=== PATIENT | male | born 1940 | race Caucasian/White ===

== ENCOUNTER 2025-02-18 09:23 | Inpatient (IN) | payer MEDICARE, OTHER ==
[~2025-02-18] VITALS: Ht 175.3 cm; Wt 84.0 kg
[2025-02-18] VITALS (11 sets, daily range): BP systolic 114–162; BP diastolic 75–100; PULSE 47–98; RESP 10–20; TEMP 97.2–99.4; O2SAT 91–100
[~2025-02-18 09:23] MED LIST: ASPI1TAB20 OR; ATEN50TA OR; CLOP75TA28 OR; NORTRIPTYLINE PO; SIMV20TA20 OR
--- NOTE | 2025-02-18 09:40 | ED.PDOC ---
HPI Comments 84 y.o male with PMHX of HTN and PAD, presents to the ED via EMS for a chief complaint of substernal chest pain that started around midnight. Patient was seen at [facility] where his pain was treated however transported to [facility] due to elevated troponin. Patient reports prior to arriving to [place], pain had improved and after receiving medication, now is pain free at bedside at this time. Patient initially described pain as a pressure sensation that was non radiating. He denies any worsening SOB (Chronic d/t COPD) ,nausea, vomiting, fever, chills, or leg swelling. He denies any substance, alcohol or tobacco use. Chief Complaint: Chest Pain Time Seen by MD: 09:24 Reviewed Notes: Nurses Notes, Landfill Grader Notes, Medications, Allergies Allergies: Coded Allergies: NO KNOWN ALLERGIES (Unverified , 01/23/12) Home Meds Reported Medications Aspirin (Aspir-81) 81 Mg Tab, 81 MG OR DAILY 01/23/12 [Nortriptoline] No Conflict Check, 25 MG PO BID 01/23/12 Clopidogrel Bisulfate (Plavix) 75 Mg Tab, 75 MG OR DAILY 01/23/12 Simvastatin (Simvastatin) 20 Mg Tab, 20 MG OR DAILY 01/23/12 Atenolol (Atenolol) 50 Mg Tab, 50 MG OR DAILY 01/23/12 Information Source: Patient Severity: Moderate Timing: Hours Duration: Since onset Location: Substernal Radiation: No Radiation Quality: Sharp Onset: At Rest Cardiac Risk Factors: HTN PE Risk Factors: None History of: None Modifying Factors: Nothing Associated Signs and Symptoms: None Past Medical History PAST MEDICAL HISTORY: COPD, HTN Past Medical History (Other): PAD Surgical History (Other): PAD Family History Family History: Reviewed,noncontributory to illness Social History Smoker: Non-Smoker Alcohol: Occasionally Drugs: Denies Drug Use Lives In: Home Constitutional: denies: chills, diaphoresis, fatigue, fever, malaise, sweats, weakness, others EENTM: denies: blurred vision, double vision, ear bleeding, ear discharge, ear drainage, ear pain, ear ringing, eye pain, eye redness, hearing loss, mouth pain, mouth swelling, nasal discharge, nose bleeding, nose congestion, nose pain, photophobia, tearing, throat pain, throat swelling, voice changes, others Respiratory: denies: cough, hemoptysis, orthopnea, SOB at rest, shortness of breath, SOB with excertion, stridor, wheezing, others Cardiovascular: reports: chest pain; denies: dizzy spells, diaphoresis, Dyspnea on exertion, edema, irregular heart beat, left arm pain, lightheadedness, palpitations, PND, syncope, others Gastrointestinal: denies: abdomen distended, abdominal pain, blood streaked bowels, constipated, diarrhea, dysphagia, difficulty swallowing, hematemesis, melena, nausea, poor appetite, poor fluid intake, rectal bleeding, rectal pain, vomiting, others Genitourinary: denies: burning, dysuria, flank pain, frequency, hematuria, incontinence, penile discharge, penile sore, pain, testicle pain, testicle s welling, urgency, others Neurological: denies: dizziness, fainting, headache, left sided numbness, left sided weakness, numbness, paresthesia, pre-existing deficit, right sided numbness, right sided weakness, seizure, speech problems, tingling, tremors, weakness, others Musculoskeletal: denies: back pain, gout, joint pain, joint swelling, muscle pain, muscle stiffness, neck pain, others Integumetry: denies: bruises, change in color, change in hair/nails, dryness, laceration, lesions, lumps, rash, wounds, others Allergic/Immunocompromised: denies: Difficulty Healing, Frequent Infections, Hives, Itching, others Hematologic/Lymphatic: denies: anemia, blood clots, easy bleeding, easy bruising, swollen glands, others Endocrine: denies: excessive hunger, excessive sweating, excessive thirst, excessive urination, flushing, intolerance to cold, intolerance to heat, unexplained weight gain, unexplained weight loss, others All Other Systems: Reviewed and Negative Physical Exam General Appearance: Mild Distress, Normal HEENT: Normal ENT Inspection, Pharynx Normal, TMs Normal Neck: Full Range of Motion, Non-Tender, Normal, Normal Inspection Respiratory: Chest Non-Tender, Lungs Clear, No Accessory Muscle Use, No Respiratory Distress, Normal Breath Sounds Cardiovascular: No Edema, No JVD, No Murmur, No Gallop, Normal Peripheral Pulses, Regular Rate/Rhythm Breast Exam: Deferred Gastrointestinal: No Organomegaly, Non Tender, No Pulsatile Mass, Normal Bowel Sounds, Soft, Other (Multiple well healing scar from previous surgeries I) Genitalia: Deferred Pelvic: Deferred Rectal: Deferred Extremities: No calf tenderness, Normal capillary refill, Normal inspection, Normal range of motion, Non-tender, No pedal edema, Other (Multiple well-healing scars from previous surgery sites) Musculoskeletal : Apperance: Normal Neurologic: Alert, dye maker II-XII nml as Tested, No Motor Deficits, Normal Affect, Normal Mood, No Sensory Deficits Cerebellar Function: Normal Reflexes: Normal Skin: Dry, Normal Color, Warm Lymphatic: No Adenopathy EKG EKG #1: Comments Rate of [address] depressions in lead two three V5 V6 EKG #2: Comments EKG 2. At 10:36 a.m., rate of [address] changes Was a procedure done? Was a procedure done?: No CP Differential Dx Differential Diagnosis: AV Block 1st Degree, AV Block 2nd Degree, AV Block 3rd Degree, NM Differential Diagnosis: Angina, Chest Wall Pain, Cholelithiasis, Gastritis, Myocardial Infarction, Pericarditis X-Ray, Labs, Meds, VS Vital Signs Date Time Temp Pulse Resp B/P (MAP) Pulse Ox O2 Delivery O2 Flow Rate FiO2 02/18/25 10:00 86 10 100 Room Air* 0 21 02/18/25 09:26 90 Lab Test 02/18/25 09:47 02/18/25 09:42 Range/Units Sodium Level 144 136-145 mmol/L Potassium Level 4.1 3.5-5.1 mmol/L Chloride Level 106 98-107 mmol/L Carbon Dioxide Level 25 20-31 mmol/L Anion Gap 13 5-15 Blood Urea Nitrogen 22 9-23 mg/dL Creatinine 1.01 0.700-1.30 mg/dL Glomerular Filtration Rate Calc 73 >90 mL/min BUN/Creatinine Ratio 21.8 H 10.0-20.0 Serum Glucose 97 74-106 mg/dL Calcium Level 9.6 8.7-10.4 mg/dL White Blood Count 7.2 4.4-10.8 10^3/uL Red Blood Count 5.37 4.5-5.90 10^6/uL Hemoglobin 14.7 13.5-17.5 g/dL Hematocrit 44.8 41.0-53.0 % Mean Corpuscular Volume 83.5 80.0-100.0 fL Mean Corpuscular Hemoglobin 27.5 L 28.0-32.0 pg Mean Corpuscular Hemoglobin Concent 32.9 32.0-36.0 g/dL Red Cell Distribution Width 17.8 H 11.8-14.3 % Platelet Count 193 140-450 10^3/uL Mean Platelet Volume 8.7 6.9-10.8 fL Neutrophils (%) (Auto) 79.2 37.0-80.0 % Lymphocytes (%) (Auto) 12.1 10.0-50.0 % Monocytes (%) (Auto) 8.5 0.0-12.0 % Eosinophils (%) (Auto) 0.0 0.0-7.0 % Basophils (%) (Auto) 0.2 0.0-2.0 % Neutrophils # (Auto) 5.7 1.6-8.6 10 ^3/uL Lymphocytes # (Auto) 0.9 0.4-5.4 10 ^3/uL Monocytes # (Auto) 0.6 0-1.3 10 ^3/uL Eosinophils # (Auto) 0 0-0.8 10 ^3/uL Basophils # (Auto) 0 0-0.2 10 ^3/uL Nucleated Red Blood Cells 0.0 % Prothrombin Time 11.8 9.3-11.8 sec Prothrombin Time INR 1.13 0.9-1.15 Activated Partial Thromboplast Time 33.1 24.5-34.5 SEC Magnesium Level 1.9 1.6-2.6 mg/dL Total Bilirubin 0.9 0.2-1.0 mg/dL Direct Bilirubin 0.3 <0.3 mg/dL Aspartate Amino Transferase (AST) 41 H 13-40 U/L Alanine Aminotransferase (ALT) 30 7-40 U/L Alkaline Phosphatase 165 H 46-116 U/L Troponin I High Sensitivity 2542 *H </=54 ng/L Total Protein 7.4 5.7-8.2 g/dL Albumin 4.3 3.2-4.8 g/dL Thyroid Stimulating Hormone (TSH) 1.09 0.55-4.78 uIU/mL 84-year-old male for [facility]. I received a phone call from the doctor [facility] the patient is here with chest discomfort and slightly trending reports troponin. The consult with the manager administration who recommended transfer to us as cardiac catheterization as possible if troponins continued to of rise. He is comfortable on my examination, he states the medications have helped. At this time initial troponin was 08/02/2041 here, 2nd has been 3300. CBC CMP otherwise within normal limits. Patient has been started on a heparin drip. Patient was given aspirin and nitroglycerin at [facility]. Hospitalist team has been contacted for admission. French Binder has been consulted. EKG here demonstrates depression in leads 2 3 V5 and V6. Time of 1ST Reevaluation: 11:44 Reevaluation 1ST: Unchanged Patient Education/Counseling: Diagnosis, Treatment, Prognosis Family Education/Counseling: No Family Present SEPSIS Sepsis Screen Physician Orders Troponin-I Hs (02/18/25 12:33) Electrocardigram (02/18/25 09:45) Electrocardigram (02/18/25 10:45) Electrocardigram (02/18/25 12:45) Vital Signs Date Time Temp Pulse Resp B/P (MAP) Pulse Ox O2 Delivery O2 Flow Rate FiO2 02/18/25 10:00 86 10 100 Room Air* 0 21 02/18/25 09:26 90 Laboratory Tests Test 02/18/25 09:42 White Blood Count 7.2 10^3/uL (4.4-10.8) Departure 1 Departure Time of Disposition: 11:51 Impression: Primary Impression: Non-STEMI (non-ST elevated myocardial infarction) Disposition: ADMITTED INPATIENT Condition: Serious Critical Care Note Critical Care Time?: Yes (45 min-critical care time only) Critical care comment: Spent speaking to [facility], evaluating the patient, treatment plan, speaking to nursing staff speaking to hospitalist team Stability Stability form required: No Heart Score Heart Score: Heart Score Response (Comments) Value History Highly Suspicious [address]-Deviation 2 Age >65 2 Risk Factors >3 or Hx ASHD 2 Troponin >3 x's Normal limit 2 Total 10 I personally scribed for DI LOWE MD ([email or web address]) on 02/18/25 at 11:47. Electronically submitted by Dulce Munson ([facility]). I personally scribed for DI LOWE MD ([email or web address]) on 02/18/25 at 12:03. Electronically submitted by Dulce Munson ([facility]). DI LOWE MD Feb 18, 2025 09:40
[2025-02-18 10:15] LABS: Hematocrit 44.8 % (41.0-53.0); Hemoglobin 14.7 g/dL (13.5-17.5); Mean Corpuscular Hemoglobin 27.5 pg (28.0-32.0); Mean Corpuscular Volume 83.5 fL (80.0-100.0); Nucleated Red Blood Cells % 0.0 %
[2025-02-18 10:26] LABS: Chloride 106 mmol/L (98-107); Potassium 4.1 mmol/L (3.5-5.1); Sodium 144 mmol/L (136-145)
[2025-02-18 10:27] LABS: Anion Gap 13 (5-15); Carbon Dioxide 25 mmol/L (20-31)
--- NOTE | 2025-02-18 10:27 | DVHHPRES ---
History of Present Illness Resident Creating Document: BRIDGETTE GUERRIER RESIDENT History of Present Illness Kannan Mccray, an 84-year-old male former smoker with a history of hypertension, peripheral arterial disease status post multiple surgical intervention, abdominal aorta aneurysm (AAA) on stent, TIA, osteoarthritis, chronic back pain, heart failure with preserved ejection fraction, GERD, CAD, and COPD chronic hypoxic respiratory failure , KEVIN, on 3 L of oxygen at night presented to the ED via EMS for epigastric pain that progressed to substernal pressure-like, nonradiating chest pain that began around midnight while on rest. He was initially evaluated and treated at [facility], where his pain improved, received 1 dose of subcutaneous Lovenox, aspirin loading, was found to have NSTEMI, elevated blood pressure but was transferred to [facility] due to elevated troponin levels for further management. He denies worsening shortness of breath (baseline due to COPD), nausea, vomiting, fever, chills, leg swelling, or substance, alcohol, or tobacco use. Patient follows with Dr. Vega as primary biological lab technician/PCP and Dr. Pelaez by as pain management. Patient has up trending of troponin, biological lab technician consulted in-hospital, patient is started on heparin drip and Dr. Fierro will evaluate the patient with left heart c atheterization tentatively on Thursday morning 02/20. The patient was seen at bedside with . Medical history: hypertension, peripheral arterial disease status post multiple surgical intervention, abdominal aorta aneurysm (AAA) on stent, TIA, osteoarthritis, chronic back pain, heart failure with preserved ejection fraction, GERD, CAD, and COPD chronic hypoxic respiratory failure , KEVIN, on 3 L of oxygen at bedtime. Surgical history: Arthroplasty, osteoarthritis needing multiple surgical intervention, fracture index finger status post surgical correction, appendicectomy, left rotator cuff and shoulder joint repair, AAA repair, abdominal addition status post revision, arthroplasty in L2-5. Family history: Noncontributory to the admission. Social history: Non-smoker, occasional alcohol use, denies illicit drug use, lives at home with . Prior history of 40+ smoking history, quit smoking 15 years back. Medications: Methocarbamol 500 mg tablet, Anoro Ellipta 62.5-25 mcg inhaler, Hydrocodone-Acetaminophen 5-325 mg tablet every 46 hours as needed for pain. Albuterol Sulfate HFA 108 mcg/act inhaler Inhale as directed (likely every 46 hours as needed). Ezetimibe 10 mg tablet Take 1 tablet daily. Pamelor (Nortriptyline) 25 mg capsule Take as directed (frequency not specified). Clopidogrel 75 mg tablet Take 1 tablet daily. Pantoprazole Sodium 40 mg tablet Take 1 tablet daily. Furosemide 20 mg tablet Take 1 tablet daily. Losartan Potassium 50 mg tablet Take 1 tablet daily. Review of Systems Constitutional: No: Fever, Chills, Sweats, Weakness, Malaise, Other Eyes: No: Pain, Vision change, Conjunctivae inflammation, Eyelid inflammation, Other, Redness ENT: No: Ear pain, Ear discharge, Nose pain, Nose discharge, Nose congestion, Mouth pain, Mouth swelling, Throat pain, Throat swelling, Other Respiratory: No: Cough, Dry, Shortness of breath, SOB with excertion, Wheezing, Hemoptysis, Pleuritic Pain, Sputum, Wheezing, Other Cardiovascular: Chest Pain, Lt Headedness; No: Palpitations, Orthopnea, Paroxysmal Noc. Dyspnea, Edema, Other Gastrointestinal: Abdominal Pain; No: Nausea, Vomiting, Diarrhea, Constipation, Melena, Hematochezia, Other Genitourinary: No Dysuria, No Frequency, No Incontinence, No Hematuria, No Retention, No Other Musculoskeletal: No: other, neck pain, shoulder pain, arm pain, back pain, hand pain, leg pain, foot pain Skin: No: Rash, Lesions, Jaundice, Bruising, Other Neurological: No: Weakness, Numbness, Incoordination, Change in speech, Confusion, Seizures, Other Allergies: Coded Allergies: NO KNOWN ALLERGIES (Unverified , 01/23/12) Medications Current Medications Medications Dose Ordered Sig/Walter Route Start Time Stop Time Status Last Admin Dose Admin Sodium Chloride 1,000 ml @ 60 mls/hr [id number] IV 02/18/25 10:30 UNV Acetaminophen/ Hydrocodone Bitart 1 tab Q4HP PRN PO 02/18/25 10:30 UNV Ondansetron HCl 4 mg Q4HP PRN IV 02/18/25 10:30 UNV Docusate Sodium 100 mg BIDPRN PRN PO 02/18/25 10:30 UNV Enoxaparin Sodium 40 mg DAILY SC 02/19/25 10:00 UNV Acetaminophen 650 mg Q6HP PRN PO 02/18/25 10:30 UNV Morphine Sulfate 2 mg Q4HPRN PRN IV 02/18/25 10:30 UNV Aspirin 81 mg DAILY PO 02/19/25 10:00 UNV Atorvastatin Calcium 40 mg DAILY PO 02/18/25 10:30 UNV Exam Vital Signs Vital Signs Date Time Temp Pulse Resp B/P (MAP) Pulse Ox O2 Delivery O2 Flow Rate FiO2 02/18/25 09:26 90 General Appearance: Alert, Oriented X3, Cooperative, mild distress HEENT: Atraumatic, PERRLA, Other (dry mucosa) Respiratory: Clear to auscultation, Normal air movement, Other (non reproducible pain ) Cardiovascular: Regular rate, Normal S1, Normal S2, No murmurs Abdominal: Normal bowel sounds, Soft, No tenderness, No hepatospenomegaly, No masses Extremities: No clubbing, No cyanosis, No edema, Normal pulses, No tenderness/swelling Skin: No rashes, No breakdown, No significant lesion Neuro: Normal gait, Normal speech, Normal tone, Sensation intact, Cranial nerves 3-12 NL, Reflexes 2+, Other Psych/Mental Status: Mental status NL, Mood NL Labs/Xrays Labs Test 02/18/25 09:47 02/18/25 09:42 Range/Units White Blood Count 7.2 4.4-10.8 10^3/uL Red Blood Count 5.37 4.5-5.90 10^6/uL Hemoglobin 14.7 13.5-17.5 g/dL Hematocrit 44.8 41.0-53.0 % Mean Corpuscular Volume 83.5 80.0-100.0 fL Mean Corpuscular Hemoglobin 27.5 L 28.0-32.0 pg Mean Corpuscular Hemoglobin Concent 32.9 32.0-36.0 g/dL Red Cell Distribution Width 17.8 H 11.8-14.3 % Platelet Count 193 140-450 10^3/uL Mean Platelet Volume 8.7 6.9-10.8 fL Neutrophils (%) (Auto) 79.2 37.0-80.0 % Lymphocytes (%) (Auto) 12.1 10.0-50.0 % Monocytes (%) (Auto) 8.5 0.0-12.0 % Eosinophils (%) (Auto) 0.0 0.0-7.0 % Basophils (%) (Auto) 0.2 0.0-2.0 % Neutrophils # (Auto) 5.7 1.6-8.6 10 ^3/uL Lymphocytes # (Auto) 0.9 0.4-5.4 10 ^3/uL Monocytes # (Auto) 0.6 0-1.3 10 ^3/uL Eosinophils # (Auto) 0 0-0.8 10 ^3/uL Basophils # (Auto) 0 0-0.2 10 ^3/uL Nucleated Red Blood Cells 0.0 % SEPSIS Sepsis Screen Physician Orders Basic Metabolic Panel (02/18/25 09:33) Troponin-I Hs (02/18/25 09:33) Troponin-I Hs (02/18/25 10:33) Troponin-I Hs (02/18/25 12:33) Electrocardigram (02/18/25 09:45) Electrocardigram (02/18/25 10:45) Electrocardigram (02/18/25 12:45) Admit (02/18/25 10:17) Allergies (02/18/25 10:17) Code Status (02/18/25 10:17) Sodium Chloride 0.9% (02/18/25 10:30) Oxygen Per Hour (02/18/25 10:17) Hydrocodone-Acet 5/325mg Tab ([place] 32 (02/18/25 10:30) Ondansetron Hcl (Zofran) (02/18/25 10:30) Docusate Sodium Capsule (Colace Capsule) (02/18/25 10:30) Enoxaparin Sodium (Lovenox) (02/19/25 10:00) Complete Blood Count (02/19/25 04:00) Comprehensive Metabolic Panel (02/19/25 04:00) Npo (Nothing By Mouth) Diet (02/18/25 Lunch) Echo 2d Mode Cardiac Dop (02/18/25 10:17) Carotid Duplx W Color Dop (02/18/25 10:17) Condition: Serious (02/18/25 10:17) Acetaminophen Tablet (Tylenol Tablet) (02/18/25 10:30) Bedrest With Bathroom Privileg (02/18/25 10:17) Morphine Sulfate Injection (02/18/25 10:30) Aspirin Chewable Tablet (02/19/25 10:00) Atorvastatin (Lipitor) (02/18/25 10:30) Vital Signs Date Time Temp Pulse Resp B/P (MAP) Pulse Ox O2 Delivery O2 Flow Rate FiO2 02/18/25 09:26 90 Laboratory Tests Test 02/18/25 09:42 White Blood Count 7.2 10^3/uL (4.4-10.8) Assessment/Plan Assessment/Plan Acute conditions present at hospitalization: #type 2 NSTEMI: Presented with new onset of unstable angina, Elevated troponin persistently 2000s>3000s EKG x2 negative for ST changes, LVH noted likely pointing towards hypertensive heart disease, given advanced age, smoking history, peripheral arterial disease, AAA, multiple vasculopathy high-risk, cardiology consulted, continue the patient on IV heparin status post aspirin loaded at [place], continue aspirin 81 mg daily starting from tomorrow, continue statin 40 mg daily for now. Close monitoring at telemetry floor, echo/TTE each check, likely will benefit from left heart catheterization/PCI. #hypertensive emergency: Patient presented with systolic blood pressure of 210 initially when EMS encountered the patient, with elevated troponin pointing towards hypertensive emergency, since then blood pressure improved, patient mentions Skipping home antihypertensives. #uncontrolled hypertension: Target blood pressure 140/90 or below, close monitoring, started the patient on amlodipine instead of losartan given need of IV contrast. Other chronic medical conditions managed: #peripheral arterial disease status post multiple surgical intervention #abdominal aorta aneurysm (AAA) on stent, hemodynamically stable, denies abdominal pain. #prior history of TIA: Denies any neuro vascular residual weakness. #osteoarthritis likely age-related: Physical therapy, pain management fall precautions to continue. #chronic back pain, osteoarthritis and degenerative joint/disc disease: Follows Dr. Pelaez for pain management on [place] as needed and methocarbamol #heart failure with preserved ejection fraction: On Lasix 20 mg oral daily, roughly euvolemic, slightly dry, IV fluids for hydration to continue check for TTE/echo and BNP #GERD//PUD: On home pantoprazole, previously was on Carafate. Patient indulges on spicy food, lifestyle modification and dietary modification, IV PPI to continue #high-risk of CAD: Given AAA and HTN and peripheral vascular disease. Patient is not aware of any previous cardiac catheterization. Baseline status ap propriate for possible cardiac catheterization. #COPD chronic hypoxic respiratory failure: Likely due to longstanding smoking h istory, home medications noted Anoro Ellipta 62.5-25 mcg inhaler + Albuterol Sulfate HFA 108 mcg/act inhaler #obstructive sleep apnea KEVIN, on 3 L of oxygen at bedtime: Continue can consider CPAP if tolerated night. #complicated Surgical history of multiple Arthroplasty, osteoarthritis needing multiple surgical intervention, fracture index finger status post surgical correction, appendicectomy, left rotator cuff and shoulder joint repair, AAA repair, abdominal addition status post revision, arthroplasty in L2-5. #Prior history of 40+ smoking history, quit smoking 15 years back. Diet: For now continue mechanical soft diet cardiac. NPO starting from Thursday a.m. PUD prophylaxis: protonix 40mg iv daily DVT prophylaxis: IV heparin drip Barriers to discharge: Medical diagnosis and management in progress. Patient lives with family. PT and SW consult as needed. PCP: Dr. Vega Specialist Relevant To Admission: Cardiology, consulted, Dr. Fierro will see the patient with tentative catheterization on 02/20/25Thursday morning. Case discussed with Dr. Fuller. Code Status: Full Code. Discussion for goals of care and medical care needed 31 minutes bedside. Patient is agreeable to admission to the telemetry. Plan discussed with: Patient, Spouse, Other (primary team RN) My Orders Orders - BRIDGETTE GUERRIER RESIDENT Procedure Category Date Status Time Admit ADMIT 02/18/25 Transmitted 10:17 Allergies JANN 02/18/25 In Process 10:17 Code Status CODE 02/18/25 Transmitted 10:17 Sodium Chloride 0.9% PHA 02/18/25 Logged 10:30 Oxygen Per Hour RT 02/18/25 Transmitted 10:17 Hydrocodone-Acet PHA 02/18/25 Logged 5/325mg Tab ([place] 10:30 Ondansetron Hcl PHA 02/18/25 Logged (Zofran) 10:30 Docusate Sodium PHA 02/18/25 Logged Capsule (Colace 10:30 Enoxaparin Sodium PHA 02/19/25 Logged (Lovenox) 10:00 Complete Blood Count LAB 02/19/25 Verified 04:00 Comprehensive LAB 02/19/25 Verified Metabolic Panel 04:00 Npo (Nothing By DIET 02/18/25 Transmitted Mouth) Diet Lunch Echo 2d Mode Cardiac US 02/18/25 Logged DOP 10:17 Carotid Duplx W Color US 02/18/25 Logged DOP 10:17 Condition: Serious JANN 02/18/25 In Process 10:17 Acetaminophen Tablet [facility] 02/18/25 Logged (Tylenol Tablet) 10:30 Bedrest With Bathroom [facility] 02/18/25 In Process Privileg 10:17 Morphine Sulfate [facility] 02/18/25 Logged Injection 10:30 Aspirin Chewable [facility] 02/19/25 Logged Tablet 10:00 Atorvastatin (Lipitor) [facility] 02/18/25 Logged 10:30 Date of Service: Feb 18, 2025 Billing Provider: RADHA FULLER MD Common Visit Codes: 82343-[id number] INP/OBS CARE (HIGH) Secondary Visit Codes: [id number] CARE PLAN 30 MINUTES BRIDGETTE GUERRIER RESIDENT Feb 18, 2025 10:27
[2025-02-18 10:28] LABS: Calcium 9.6 mg/dL (8.7-10.4)
[2025-02-18] MEDS ORDERED: ONDANSETRON HCL 4 MG/2 ML VIAL IV PRN (10:30)
[2025-02-18] MEDS ORDERED: MORPHINE SULFATE INJ 2 MG/ml SYRG IV PRN (10:30)
[2025-02-18] MEDS ORDERED: DOCUSATE SOD 100 MG CAP PO PRN (10:30)
[2025-02-18] MEDS ORDERED: ACETAMINOPHEN 325 MG TAB PO PRN (10:30)
[2025-02-18 10:32] LABS: BUN/Creatinine Ratio 21.8 (10.0-20.0); Blood Urea Nitrogen 22 mg/dL (9-23); Glucose 97 mg/dL (74-106)
[2025-02-18 11:00] LABS: Alanine Aminotransferase 30.0 U/L (7-40); Total Protein 7.4 g/dL (5.7-8.2)
--- NOTE | 2025-02-18 11:00 | DVH ---
CLINICAL HISTORY: chest pain TECHNIQUE: Single view of the chest was obtained. COMPARISON: XR CHEST 1 VIEW on DOS: 02/18/25, XR CHEST 1 VIEW on DOS: 06/13/24, XR CHEST 2 VIEWS on DOS: 04/03/23 FINDINGS: The heart size and pulmonary vasculature are normal. The lungs are clear. IMPRESSION: NO ACUTE CARDIOPULMONARY PROCESS.
[2025-02-18 11:01] LABS: Albumin 4.3 g/dL (3.2-4.8); Bilirubin, Direct 0.3 mg/dL (<0.3); Bilirubin, Total 0.9 mg/dL (0.2-1.0)
[2025-02-18 11:03] LABS: Alkaline Phosphatase 165.0 U/L (46-116)
[2025-02-18 11:10] LABS: Urine Protein, UAD 1+ (Negative)
[2025-02-18 11:13] LABS: INR 1.13 (0.9-1.15); Partial Thromboplastin Time 33.1 SEC (24.5-34.5); Prothrombin Time 11.8 sec (9.3-11.8)
[2025-02-18] MEDS: ATORVASTATIN 20 MG TAB PO SCH (11:17)
[2025-02-18] MEDS: SODIUM CHLORIDE 0.9% 1,000 ML IV SCH (11:17)
[2025-02-18] MEDS: PANTOPRAZOLE 40 MG/10 ML VIAL INJ IV ONE (11:23)
[2025-02-18] MEDS ORDERED: METH-1181 PO (13:05)
[2025-02-18] MEDS ORDERED: LOSA-534 PO (13:05)
[2025-02-18] MEDS ORDERED: CLOP75TA70 PO (13:05)
[2025-02-18] MEDS ORDERED: ALBU108A5 INH (13:05)
[2025-02-18] MEDS ORDERED: EZET-10 PO (13:05)
[2025-02-18] MEDS ORDERED: PANT40T PO (13:05)
[2025-02-18] MEDS ORDERED: NORT25CA PO (13:05)
[2025-02-18] MEDS ORDERED: HYDR1TAB97 PO (13:28)
[2025-02-18] MEDS ORDERED: UMEC1AER IN (13:28)
[2025-02-18] MEDS: HEPARIN DRIP/D5W 100UNITS/ML 250 ML IV SCH ×2 (13:32→19:12)
--- NOTE | 2025-02-18 14:19 | DVH ---
Carotid Duplex Date: 02/18/2025 01:53 PM Clinical History: R/o critical stenonsis, dizziness. Comparison: None Technique: Duplex Doppler evaluation of the extracranial carotid and vertebral arteries including color Doppler and spectral/pulsed waveform analysis was performed. Findings: RIGHT SIDE: There is atherosclerotic calcification of the common carotid, the carotid bifurcation and internal carotid artery. The peak systolic velocities are 91 cm/s in the distal CCA and 82 cm/s in the proximal ICA.The ICA/CCA ratio is 1.1. The external carotid artery is patent with peak systolic velocity of 108 cm/s proximally. There is appropriate antegrade flow in the right vertebral artery. LEFT SIDE: There is atherosclerotic calcification in the common carotid, the carotid bifurcation and internal carotid artery. The peak systolic velocities are 89 cm/s in the distal CCA and 84 cm/s in the proximal ICA. The ICA/CCA ratio is 1.1. The external carotid artery is patent with peak systolic velocity of 111 cm/s proximally. There is appropriate antegrade flow in the left vertebral artery. IMPRESSION: 1. No hemodynamically significant stenosis noted in the right carotid system. 2. No hemodynamically significant stenosis noted in the left carotid system. 3. Reference: Radiology 2003; 229:[id number]
[2025-02-18 15:20] LABS: Triglycerides 78 mg/dL (< 150)
[2025-02-18 15:22] LABS: Cholesterol 161 mg/dL (< 200)
[2025-02-18 15:34] LABS: HDL Cholesterol 73 mg/dL (40-59)
[2025-02-18] MEDS ORDERED: CARVEDILOL 3.125 MG TAB PO SCH (15:53)
--- NOTE | 2025-02-18 17:08 | DVH ---
CLINICAL HISTORY: Chest pain. Elevated D-dimer. COMPARISON: LE-ANKLE 2V on DOS: 10/13/19, LE-FOOT 2V on DOS: 10/13/19, LE-ANKLE 2V on DOS: 10/13/19 TECHNIQUE: Bilateral lower extremity venous duplex exam was performed. Grayscale, color flow, and spectral waveform analysis was performed. The deep veins of the lower extremity were evaluated for compression, phasic flow, and augmentation. Color flow and spectral waveform analysis were performed. FINDINGS: This examination demonstrates normal compression, augmentation, and phasic flow of both lower extremities. No evidence for thrombus within the common femoral, femoral, and popliteal veins. The calf veins were not evaluated. IMPRESSION: There is no evidence for DVT in either lower extremity from the common femoral veins through the popliteal veins.
[2025-02-18] MEDS: CARVEDILOL 3.125 MG TAB PO ONE (17:16)
[2025-02-18] MEDS: ISOSORBIDE MONONITRATE ER 60 MG TAB PO SCH (17:17)
[2025-02-18] MEDS: diphenhydrAMINE HCL 50 MG/1 ML VL IV ONE (18:39)
[2025-02-18] MEDS: MAGNESIUM SULFATE 1GM/100ML 100 ML IV ONE (18:53)
[2025-02-18 18:55] LABS: INR 1.14 (0.9-1.15); Partial Thromboplastin Time 44.1 SEC (24.5-34.5); Prothrombin Time 11.9 sec (9.3-11.8)
[2025-02-18] MEDS: IPRATROPIUM BROM 0.5 MG/2.5ML INH SOL NEB SCH (19:04)
[2025-02-18] MEDS: ALBUTEROL SULF 2.5 MG/0.5ML(0.5%) NEB SOLN NEB SCH (19:04)
--- NOTE | 2025-02-18 19:10 | CONS ---
Pharmacy Clinical Information: HEPARIN PER ACS PROTOCOL: APTT result of 44.1 received from draw on 02/18 @1742. Increase rate 200 units per hour per protocol. New rate is 1200 units per hour (12ml/hr). Orders read back and confirmed with SHAHID Cortez @0511. Next APTT scheduled for 0. VENUS GARDNER PHARMACIST Feb 18, 2025 19:10
[2025-02-19] VITALS (16 sets, daily range): BP systolic 126–153; BP diastolic 67–94; PULSE 63–85; RESP 16–19; TEMP 97.9–99; O2SAT 91–100
[2025-02-19 02:09] LABS: INR 1.15 (0.9-1.15); Prothrombin Time 12.0 sec (9.3-11.8)
[2025-02-19 02:13] LABS: Partial Thromboplastin Time 79.9 SEC (24.5-34.5)
[2025-02-19] MEDS: HEPARIN DRIP/D5W 100UNITS/ML 250 ML IV SCH ×2 (02:15→16:12)
[2025-02-19] MEDS ORDERED: HEPARIN DRIP/D5W 100UNITS/ML 250 ML IV SCH (02:45)
[2025-02-19 02:58] LABS: COVID19 ANTIGEN SOFIA FIA NEGATIVE (NEGATIVE)
[2025-02-19 05:54] LABS: Hematocrit 41.5 % (41.0-53.0); Hemoglobin 13.3 g/dL (13.5-17.5); Mean Corpuscular Hemoglobin 27.1 pg (28.0-32.0); Mean Corpuscular Volume 84.2 fL (80.0-100.0); Nucleated Red Blood Cells % 0.0 %
--- NOTE | 2025-02-19 05:54 | DVHINCON2 ---
Date of service: Feb 19, 2025 Reason for Consultation NSTEMI History of Present Illness This is an 84-year old male known outside to our practice who initially presented 02/18/2025 with reported chest pains described as pressure-like in nature (later resolved). Patient reports he had checked his blood pressure duri ng the event while at home and conveys systolic blood pressure had been found > 200mmHg for which EMS was called and patient was later transported to [facility] for further medical evaluation. While undergoing management within [facility] ED, patient had been found to have abnormal troponin levels concerning for NSTEMI which [facility] cardiac management/evaluation for ischemic workup. Upon ED arrival at present facility, initial high sensitive troponin level had been found elevated at 2542 which had peaked at 3461, with a subsequent downtrend to 2568. Serial 12-lead electrocardiograms had been consistent with sinus rhythm, no evidence for any notable ST segment elevation. LDL was found to be 71. D- Dimer had been found elevated at 3.21 which BLE venous duplex had ruled out deep vein thrombosis. CTA of the Chest has been ordered and remains pending at present time of consultation. Throughout course of present hospitalization, patient had been initiated on Heparin infusion and later admitted to the telemetry unit where he has been undergoing further management. Review of outside records reveal patient had underwent ischemic workup by Alda scan 12/19/2022 which had reported presence of a fixed defect involving the proximal to distal inferior and inferoseptal segments with no inducible ischemia. Does have history of AAA and is status post previous repair from before which patient denies any abdominal or back pains and is with stable renal function. Does have previous history of peripheral arterial disease and is status post BLE revascularization on Plavix as outpatient. Of note, patient does report inconsistency with outpatient anti-hypertensive regiment which could have attributed to hypertensive emergency (blood pressure later controlled). At present, denies any active chest pain. Denies any shortness of breath, palpitations, dizziness, syncope, abdominal pain, back pain, orthopnea, paroxysmal nocturnal dyspnea, dyspnea on exertion, or any further cardiac related symptoms. Cardiology services were subsequently involved by primary team request for cardiac aspects of care. Past medical history includes abdominal aortic aneurysm status post repair (2002), hypertension, hyperlipidemia, peripheral arterial disease status post previous revascularization (on Plavix as outpatient), COPD on home oxygen, obstructive sleep apnea, and osteoarthritis. Patient is status post previous appendectomy, left shoulder, and left ankle surgery. Denies tobacco use. Reports occasional alcohol use and denies any illicit drug use. Alda Scan: (12/19/2022 Performed as Outpatient) revealed Myocardial Perfusion: A medium sized, mild to moderate severity, fixed defect exists in the proximal to distal inferior and inferoseptal segments. Findings are compatible with previous Myocardial infarction with preserved systolic function. There is no ischemia. Ejection Fraction 60%. Overall Study Quality: Fair. TID Index: 0.98 Past Medical History Reviewed Past Surgical History Reviewed Family History: Patient reports no known family medical history. Allergies: Coded Allergies: NO KNOWN ALLERGIES (Unverified , 01/23/12) Home Meds Reported Medications Hydrocodone-Acetaminophen (Hydrocodone/Acetaminophen 5-325 mg) 1 Tab Tab, 1 TAB PO Q6HP PRN for PAIN SCALE 7 THRU 10, TAB 02/18/25 Umeclidinium-Vilanterol (Anoro Ellipta 62.5-25 Mcg/INH) 1 Aer Aer, 1 AER IN, AER 02/18/25 Nortriptyline Hcl (PAMELOR CAPSULE) 25 Mg Cp, CAP PO 02/18/25 Losartan Potassium (Losartan Potassium) 50 Mg Tab, 1 TAB PO BID 02/18/25 Pantoprazole Sodium Sesquihydr (Pantoprazole Sodium) 40 Mg Tab, 1 TAB PO DAILY 02/18/25 Clopidogrel Bisulfate (CLOPIDOGREL) 75 Mg Tab, 1 TAB PO DAILY 02/18/25 Ezetimibe (Ezetimibe) 10 Mg Tab, 1 TAB PO DAILY 02/18/25 Albuterol Sulfate (Albuterol Sulfate Hfa) 108 Mcg/Act Aer, INH 02/18/25 Methocarbamol (Methocarbamol) 500 Mg Tab, 1 TAB PO BID 02/18/25 Aspirin (Aspir-81) 81 Mg Tab, 81 MG OR DAILY 01/23/12 [Nortriptoline] No Conflict Check, 25 MG PO BID 01/23/12 Clopidogrel Bisulfate (Plavix) 75 Mg Tab, 75 MG OR DAILY 01/23/12 Simvastatin (Simvastatin) 20 Mg Tab, 20 MG OR DAILY 01/23/12 Atenolol (Atenolol) 50 Mg Tab, 50 MG OR DAILY 01/23/12 Current Medications Current Medications Medications (Trade) Dose Ordered Sig/Walter Route PRN Reason Start Time Stop Time Status Last Admin Sodium Chloride 1,000 ml @ 60 mls/hr [id number] IV 02/18/25 10:30 02/19/25 02:29 Acetaminophen/ Hydrocodone Bitart ([place] 5/325MG Tab) 1 tab Q4HP PRN PO MODERATE PAIN (4-6 PAIN SCALE) 02/18/25 10:30 Ondansetron HCl (Zofran) 4 mg Q4HP PRN IV NAUSEA / VOMITING 02/18/25 10:30 Docusate Sodium (Colace Capsule) 100 mg BIDPRN PRN PO FOR CONSTIPATION 02/18/25 10:30 Enoxaparin Sodium (Lovenox) 40 mg DAILY SC 02/19/25 10:00 02/18/25 10:54 DC Acetaminophen (Tylenol Tablet) 650 mg Q6HP PRN PO PAIN SCALE 1-3 OR TEMP>100.4 02/18/25 10:30 Morphine Sulfate 2 mg Q4HPRN PRN IV SEVERE PAIN (7-10 PAIN SCALE) 02/18/25 10:30 Aspirin 81 mg DAILY PO 02/19/25 10:00 Atorvastatin Calcium (Lipitor) 40 mg DAILY PO 02/18/25 10:30 02/18/25 11:17 Heparin Sodium/ Dextrose 250 ml @ 10 mls/hr Q24H IV 02/18/25 10:45 02/18/25 19:03 DC 02/18/25 13:32 Pantoprazole Sodium (Protonix) 40 mg DAILY IV 02/19/25 10:00 Carvedilol (Coreg Tablet) 6.25 mg Q12HR PO 02/18/25 15:53 02/18/25 15:57 DC Isosorbide Mononitrate (Imdur Er Tablet) 30 mg DAILY PO 02/18/25 15:54 02/18/25 17:17 Amlodipine Besylate (Norvasc Tablet) 10 mg DAILY PO 02/19/25 10:00 Carvedilol (Coreg Tablet) 6.25 mg Q12HR PO 02/19/25 10:00 Albuterol (Ventolin Medneb) 2.5 mg Q6HWA NEB 02/18/25 18:00 02/18/25 19:04 Ipratropium [place] (Atrovent Medneb) 0.5 mg Q6HWA NEB 02/18/25 18:00 02/18/25 19:04 Heparin Sodium/ Dextrose 250 ml @ 12 mls/hr [id number] IV 02/18/25 19:15 02/19/25 02:36 DC 02/18/25 19:12 Heparin Sodium/ Dextrose 250 ml @ 10 mls/hr Q24H IV 02/19/25 02:45 02/19/25 02:39 DC Heparin Sodium/ Dextrose 250 ml @ 10 mls/hr Q24H IV 02/19/25 02:15 02/19/25 02:15 Review of Systems A 14-point review of systems is negative unless otherwise noted above Vital Signs Vital Signs Date Time Temp Pulse Resp B/P (MAP) Pulse Ox O2 Delivery O2 Flow Rate FiO2 02/19/25 05:00 99.0 63 16 153/94 (113) 91 99.0 02/18/25 20:00 Nasal Cannula* 2 28 Physical Exam Heart: S1 and S2 regular. The patient is in sinus rhythm. Lungs: Clear to auscultation Abdomen: Benign. No aortic bruit or pulsatile masses noted. Extremities: Distal pulses palpable, 2+. No evidence for peripheral edema Labs/Diagnostic Data Labs Test 02/19/25 05:10 02/19/25 01:40 02/19/25 01:36 02/18/25 17:42 Range/Units Influenza Type A Antigen Negative Negative Influenza Type B Antigen Negative Negative SARS-CoV-2 Antigen (Rapid) Negative NEGATIVE Prothrombin Time 12.0 H 9.3-11.8 sec Prothrombin Time INR 1.15 0.9-1.15 Activated Partial Thromboplast Time 79.9 *H 24.5-34.5 SEC Troponin I High Sensitivity 2568 *H </=54 ng/L Test 02/18/25 14:30 02/18/25 10:53 02/18/25 09:42 Range/Units D-Dimer, Quantitative 3.21 H 0.0-0.49 mg/L FEU Triglycerides Level 78 < 150 mg/dL Cholesterol Level 161 < 200 mg/dL LDL Cholesterol 71 < 100 mg/dL HDL Cholesterol 73 H 40-59 mg/dL Urine Color Yellow Yellow Urine Clarity Clear Clear Urine pH 7.0 5.0-9.0 Urine Specific Waves 1.024 1.001-1.035 Urine Protein 1+ H Negative Urine Ketones Negative Negative Urine Blood Negative Negative /uL Urine Nitrite Negative Negative Urine Bilirubin Negative Negative Urine Urobilinogen 3 H Negative mg/dL Urine Leukocyte Esterase Negative Negative /uL Urine RBC 2 0 - 3 /hpf Urine Microscopic WBC 1 0-3 /HPF Urine Squamous Epithelial Cells None seen <5 /hpf Urine Bacteria None seen None Seen /hpf Urine Glucose Normal Normal mg/dL Eosinophils (%) (Auto) 0.0 0.0-7.0 % Eosinophils # (Auto) 0 0-0.8 10 ^3/uL Basophils # (Auto) 0 0-0.2 10 ^3/uL Nucleated Red Blood Cells 0.0 % Magnesium Level 1.9 1.6-2.6 mg/dL Direct Bilirubin 0.3 <0.3 mg/dL Thyroid Stimulating Hormone (TSH) 1.09 0.55-4.78 uIU/mL Plan/Recommendation ASSESSMENT: This is an 84-year old male known outside to our practice who initially presented 02/18/2025 with reported chest pains described as pressure-like in nature (later resolved). Patient reports he had checked his blood pressure during the event while at home and conveys systolic blood pressure had been found > 200mmHg for which EMS was called and patient was later transported to [facility] for further medical evaluation. While undergoing management within [facility] ED, patient had been found to have abnormal troponin levels concerning for NSTEMI which patient was subsequently transferred to present facility for further cardiac management/evaluation for ischemic workup. Upon ED arrival at present facility, initial high sensitive troponin level had been found elevated at 2542 which had peaked at 3461, with a subsequent downtrend to 2568. Serial 12-lead electrocardiograms had been consistent with sinus rhythm, no evidence for any notable ST segment elevation. LDL was found to be 71. D-Dimer had been found elevated at 3.21 which BLE venous duplex had ruled out deep vein thrombosis. Chest x-ray had revealed no evidence for acute cardiopulmonary abnormalities. CTA of the Chest has been ordered and remains pending at present time of consultation. Throughout course of present hospitalization, patient had been initiated on Heparin infusion and later admitted to the telemetry unit where he has been undergoing further management. Review of outside records reveal patient had underwent ischemic workup by Alda scan 12/19/2022 which had reported presence of a fixed defect involving the proximal to distal inferior and inferoseptal segments with no inducible ischemia. Does have history of AAA and is status post previous repair from before which patient denies any abdominal or back pains and is with stable renal function. Does have previous history of peripheral arterial disease and is status post BLE revascularization on Plavix as outpatient. Of note, patient does report inconsistency with outpatient anti-hypertensive regiment which could have attributed to hypertensive emergency (blood pressure later controlled). At present, remains hemodynamically Denies any active chest pain. Denies any shortness of breath, palpitations, dizziness, syncope, abdominal pain, back pain, orthopnea, paroxysmal nocturnal dyspnea, dyspnea on exertion, or any further cardiac related symptoms. Cardiology services were subsequently involved by primary team request for cardiac aspects of care. Past medical history includes abdominal aortic aneurysm status post repair (2002), hypertension, hyperlipidemia, peripheral arterial disease status post previous revascularization (on Plavix as outpatient), COPD on home oxygen, obstructive sleep apnea, and osteoarthritis. Patient is status post previous appendectomy, left shoulder, and left ankle surgery. Denies tobacco use. Reports occasional alcohol use and denies any illicit drug use. Does have reported contrast allergy. Alda Scan: (12/19/2022 Performed as Outpatient) revealed Myocardial Perfusion: A medium sized, mild to moderate severity, fixed defect exists in the proximal to distal inferior and inferoseptal segments. Findings are compatible with previous Myocardial infarction with preserved systolic function. There is no ischemia. Ejection Fraction 60%. Overall Study Quality: Fair. TID Index: 0.98 NSTEMI, concern for type I physiology Abnormal HS troponins (2542, 3321, 3461, 2568) Abnormal D-Dimer (3.21), rule out PE/DVT Hypertensive emergency, improved PAD, s/p previous revascularization History of AAA, s/p previous repair COPD (stable), on home oxygen Hyperlipidemia, LDL of 71 CARDIAC SUGGESTIONS FOR MANAGEMENT: Request for 2-D Echocardiogram Await CTA of the Chest to rule out PE/Large Vessel Disease If CTA of Chest negative, ischemic workup by cardiac catheterization can be justified/arranged 02/20/[address] Fierro Benefits, risks, alternatives were discussed at length for potential plan of undergoing cardiac catheterization which patient is agreeable Recognizing reported contrast allergy, will initiate contrast protocol with oral Prednisone for potential plan of undergoing cardiac catheterization To proceed with optimized medical therapy and aggressive risk factor modification during the interim To proceed with close hemodynamic surveillance and optimized blood pressure control Proceed with Heparin infusion as for now Started on Carvedilol 6.25mg twice daily Started on Isosorbide ER 30mg daily Atorvastatin 40mg once daily Aspirin 81mg once daily Proceed with close rate and rhythm surveillance Proceed with close hemodynamic surveillance Proceed with optimized blood pressure control Transfuse to sustain HGB level above 7.0 Sustain Magnesium level greater than 2.0 Sustain Potassium level greater than 4.0 Follow up renal function and electrolytes Management in telemetry Follow up aws consultant recommendations Will proceed to follow from a cardiac perspective Further recommendations per clinical progression All available diagnostic labs, EKG's, and images were personally reviewed Patient's status, findings, and plan of care was reviewed and discussed with [facility] physician Dr. Vega, who is in agreement with current plan of care. Plan of care discussed with and agreed upon by patient / primary RN Prognosis: Guarded Thank you for allowing me to participate in the care of this patient. Further recommendations based on patients clinical course and progression, primary attending, and other consultants. Will continue to follow with primary attending. If you have any questions or concerns, please do not hesitate to contact me. A total of 75 minutes was spent reviewing the patient record, examining the patient, making a diagnostic and therapeutic plan, discussing this plan with medical personnel, following up on diagnostic studies and following the patient for clinical stability excluding any and all procedures. At least 50% of this time was spent in direct, [id number] contact. Plan discussed with: Patient (patient and primary rn ) ANEL MISHRA Feb 19, 2025 05:54
[2025-02-19 06:01] LABS: Alanine Aminotransferase 24 U/L (7-40); Albumin 3.6 g/dL (3.2-4.8); Alkaline Phosphatase 133 U/L (46-116); Anion Gap 12 (5-15); BUN/Creatinine Ratio 24.7 (10.0-20.0); Bilirubin, Total 1.1 mg/dL (0.2-1.0); Blood Urea Nitrogen 22 mg/dL (9-23); Calcium 8.9 mg/dL (8.7-10.4); Carbon Dioxide 25 mmol/L (20-31); Chloride 106 mmol/L (98-107); Glucose 117 mg/dL (74-106); Potassium 4.6 mmol/L (3.5-5.1); Sodium 143 mmol/L (136-145); Total Protein 6.0 g/dL (5.7-8.2)
[2025-02-19] MEDS: PANTOPRAZOLE 40 MG/10 ML VIAL INJ IV SCH (08:57)
[2025-02-19] MEDS: CARVEDILOL 3.125 MG TAB PO SCH (08:58)
[2025-02-19 09:19] LABS: INR 1.12 (0.9-1.15); Partial Thromboplastin Time 58.2 SEC (24.5-34.5); Prothrombin Time 11.7 sec (9.3-11.8)
[2025-02-19] MEDS ORDERED: ENOXAPARIN SOD 40 MG/0.4 ML SYRINGE SC SCH (10:00)
[2025-02-19 10:24] LABS: Magnesium 2.0 mg/dL (1.6-2.6)
[2025-02-19] MEDS: predniSONE 20 MG TAB PO ONE ×2 (11:48→21:41)
[2025-02-19] MEDS: IOHEXOL 350 MG/ML 100ML IJ ONE (13:13)
--- NOTE | 2025-02-19 14:21 | DVH ---
EXAM: CT CT ANGIO CHEST CONTRAST HISTORY: rule out PE / aortic dissection/aneurysm TECHNIQUE: CT angiogram was performed. CT scans at this facility use dose modulation, iterative reconstruction, and/or weight based dosing when appropriate to reduce radiation dose to as low as reasonably achievable. Coronal and sagittal reformations and maximum intensity projection images were created from the transaxial source data by the rad technologist and workstation, as well as 3-D volume rendered images with MIPs. COMPARISON: XY CHEST PORTABLE on DOS: 02/18/25 FINDINGS: [LOWER NECK]: Unremarkable [LYMPH NODES/MEDIASTINUM]: No abnormal lymph nodes by CT size criteria [CARDIOVASCULAR]: Normal cardiac size. No pericardial effusion. No aneurysmal dilatation of the great vessels. Coronary artery calcifications. Vascular calcifications. Endovascular stent graft in the partially visualized abdominal aorta. [PULMONARY ARTERIES]: No pulmonary arterial filling defect. Normal caliber of the main pulmonary artery. No evidence of elevated right heart pressures. [UPPER ABDOMEN]: Benign-appearing cysts of the left hepatic lobe. [MUSCULOSKELETAL]: No acute fracture or aggressive focal osseous lesion. Multilevel degenerative change of the visualized spine. Severe degenerative change of bilateral glenohumeral joints, [id number]. [CHEST WALL]: Unremarkable. [LUNG PARENCHYMA/PLEURAL SPACE]: Inconspicuous areas of possible lobular air trapping particularly in the right middle lobe. Minimal diffuse peribronchial thickening. No endobronchial impaction or bronchiectasis. Imaging findings may reflect infectious versus inflammatory bronchitis however may be exaggerated secondary to expiratory phase of imaging. No pleural effusion or pneumothorax. IMPRESSION: 1. No CTA evidence of an acute pulmonary embolism. 2. Inconspicuous areas of possible lobular air trapping particularly in the right middle lobe. 3. Minimal diffuse peribronchial thickening. 4. Imaging findings may reflect infectious versus inflammatory bronchitis however may be exaggerated secondary to expiratory phase of imaging.
[2025-02-19 15:16] LABS: INR 1.14 (0.9-1.15); Partial Thromboplastin Time 44.4 SEC (24.5-34.5); Prothrombin Time 11.9 sec (9.3-11.8)
--- NOTE | 2025-02-19 16:18 | DVHPNRES ---
Progress Note Date Seen: Feb 19, 2025 Resident Creating Document: FCO BURRELL RESIDENT Medical Necessity Reason Pt with a Central, PICC or Fol: No Subjective Review of Systems Kannan Mccray is a 84-year-old male patient who presents to the ED transferred from other centre via [facility] with chief complaint of intermittent, unprovoked, oppressive retrosternal chest pain in Functional Class IV with intensity 10/10 which started on 02/17/2025 at 11:30 p.m, associated with hypertension SBP above 200 mmHg) and dizziness, prompting patient to contact EMS who evaluated him on site and decided to transfer him to the [facility]. In [facility] he was diagnosed with NSTEMI, initiating medical therapy (enoxaparin, aspirin load, and atorvastatin) relieving his symptoms to 0/10, deciding to transfer him to a center capable of coronary angiography. Patient also reports noncompliance with antihypertensive medication. Denies any other associated symptoms including palpitation, syncope, dyspnea and lower limb swelling. Past medical history hypertension, 2009 AAA status postop with endoprosthesis, 2009 right peripheral artery disease status post surgical bypass and recent bilateral lower limb peripheral revascularization on Plavix, 2018 CVA, COPD on intermittent home oxygen (3.5 L/min during nighttime), questionable obstructive sleep apnea, peptic ulcer disease, osteoarthritis, chronic back pain coronary artery disease and HFpEF (60%) with stress test on 12/2022 which ruled out ischemia (LVEF 60% and fixed defect in inferior/inferoseptal segment compatible with MO) Surgical history: 2010 bypass surgery, 2000 and peripheral artery disease surgery, recent percutaneous treatment, left 3rd digit repair, left knee repair, right ankle repair Family history: Sister had bone cancer. Father had COPD. Noncontributory to heart disease Social history: Lives in [place] with (next of kin. Ex tobacco abuse (40 pack-year history of smoking) quit 15 years ago. Denies current tobacco, alcohol and other drug abuse. Allergies: Denies Home medication: Methocarbamol 500 mg tablet, Anoro Ellipta 62.5-25 mcg inhaler, Hydrocodone-Acetaminophen 5-325 mg tablet . Albuterol Sulfate HFA 108 mcg/act inhale, Ezetimibe 10 mg tablet, Pamelor (Nortriptyline) 25 mg capsule. Clopidogrel 75 mg tablet. Pantoprazole Sodium 40 mg tablet Take 1 tablet daily. Furosemide 20 mg p.o. daily, Losartan Potassium 50 mg p.o. daily (per patient he was not taking aspirin due to peptic ulcer disease) Patient seen and examined at bedside. Currently has no new complaints. Continue with heparin drip. Angio CT of chest ruled out PE and intrathoracic dissection. Evaluated by crop specialist, planning on completing coronary angiography on 02/20/2025, procedure to be done by Dr. Fierro. Objective vital signs Vital Sign Date Time Temp Pulse Resp B/P (MAP) Pulse Ox O2 Delivery O2 Flow Rate FiO2 02/19/25 13:00 97.9 82 18 134/80 (98) 92 97.9 02/19/25 11:15 Nasal Cannula 1.0 02/19/25 11:15 24 Total Intake and Output 02/18/25 02/18/25 02/19/25 15:00 23:00 07:00 Intake Total 0 ml 250 ml Output Total 0 ml Balance 0 ml 250 ml medications Current Medications Medications Dose Ordered Sig/Walter Route Start Time Stop Time Status Last Admin Dose Admin Sodium Chloride 1,000 ml @ 60 mls/hr [id number] IV 02/18/25 10:30 02/19/25 02:29 60 MLS/HR Acetaminophen/ Hydrocodone Bitart 1 tab Q4HP PRN PO 02/18/25 10:30 Ondansetron HCl 4 mg Q4HP PRN IV 02/18/25 10:30 Docusate Sodium 100 mg BIDPRN PRN PO 02/18/25 10:30 Acetaminophen 650 mg Q6HP PRN PO 02/18/25 10:30 Morphine Sulfate 2 mg Q4HPRN PRN IV 02/18/25 10:30 Aspirin 81 mg DAILY PO 02/19/25 10:00 02/19/25 08:58 81 MG Atorvastatin Calcium 40 mg DAILY PO 02/18/25 10:30 02/19/25 08:57 40 MG Pantoprazole Sodium 40 mg DAILY IV 02/19/25 10:00 02/19/25 08:57 40 MG Isosorbide Mononitrate 30 mg DAILY PO 02/18/25 15:54 02/19/25 08:59 30 MG Amlodipine Besylate 10 mg DAILY PO 02/19/25 10:00 02/19/25 08:58 10 MG Carvedilol 6.25 mg Q12HR PO 02/19/25 10:00 02/19/25 08:58 6.25 MG Albuterol 2.5 mg Q6HWA [facility] [place] 02/18/25 18:00 02/19/25 11:15 2.5 MG Ipratropium [place] 0.5 mg Q6HWA [facility] [place] 02/18/25 18:00 02/19/25 11:15 0.5 MG Heparin Sodium/ Dextrose 250 ml @ 12 mls/hr [id number] IV 02/19/25 15:45 Examination Patient lying in bed, in no acute distress General: Lucid, afebrile, mucosae are moist Cardiovascular: Normal S1 and S2. No murmurs, gallops or rubs Respiratory: Normal ventilation mechanics. Clear lung sounds on auscultation Abdomen: Soft, nontender, no organomegaly, normal bowel sounds. Surgical wound of laparotomy completely healed MSK/skin: Mobilizes 4 limbs. Skin is dry and warm. Surgical wound of peripheral right thigh bypass completely healed. Neurological: Oriented in 3 spheres. No motor no sensitive deficits. Pupils are isocoric and reactive laboratory and microbiology Laboratory Tests 02/19/25 05:10 Test 02/19/25 05:10 Range/Units Serum Glucose 117 H 74-106 mg/dL Microbiology Date/Time Source Procedure Growth Status 02/18/25 14:00 Nose MRSA Screen - Final Complete Problem List/Assessment/Plan Problem List/Assessment/Plan NSTEMI - rule out type 1 Hypertensive crisis Ruled out acute intrathoracic aortic disease Ruled out PE Probable coronary artery disease History of HFpEF (LVEF 60%), not exacerbated History of AAA status post surgery History of PAD status post surgery and stent placement Patient currently on telemetry status. EKG shows sinus rhythm with LVH, no ST-elevation. Troponin elevated, now downtrending ([id number]). Cardiac chest pain (retrosternal, oppressive, responding to medical therapy), currently has no pain. crop specialist on board: Continue aspirin, atorvastatin, heparin drip, carvedilol 6.25 mg p.o. b.i.d., isosorbide mononitrate 30 mg p.o. daily. Ordered angio CT of chest which ruled out PE and acute intrathoracic aortic disease. Planning on completing coronary angiography on 02/20/2025. Ordered echocardiogram which was completed, preliminary impresses reduced ejection fraction (pending final report) Clopidogrel currently hold until obtaining coronary anatomy. Continue p.o. 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 Patient denies any history of MO or stent placement. Chronic respiratory failure on intermittent home oxygen (3.5 L/min) COPD, not exacerbated Questionable obstructive sleep apnea Continue with oxygen therapy on nasal cannula (currently on 2 L/min). Indicated bronchodilators Goals saturation between 88-96 % Chronic back pain Osteoarthritis Optimize pain management Peptic ulcer Currently on IV pantoprazole History of tobacco dependence Patient has 40 pack-year history of smoking Goals of care discussed with patient for over 18 minutes: Full code status Discussed plan with Dr. Awad, patient, family and nurses: Patient currently on telemetry status. Continue with optimal medical management (aspirin, atorvastatin, heparin drip, carvedilol, isosorbide mononitrate and valsartan). Completed Angio CT of chest which ruled out acute intrathoracic pathology. Planning on coronary angiogram for 02/20/2025, NPO after midnight. Patient has poor prognosis. Plan discussed with: Patient, Spouse, Son, Other (Nurses) My Orders My Orders Orders - FCO BURRELL Procedure Category Date Status Time Drug Screen LAB 02/19/25 Logged 09:49 Magnesium LAB 02/20/25 Verified 04:00 Phosphorus LAB 02/20/25 Verified 04:00 PTPTT LAB 02/20/25 Verified 04:00 Basic Metabolic Panel LAB 02/20/25 Verified 04:00 Visit Coding STANDARD RES Billing Provider: GIANNI AWAD MD Date of Service if different f: Feb 19, 2025 Common Visit Codes: 02406-[id number] INP/OBS CARE(HIGH) Secondary Visit Codes: 92954-[id number] CARE PLAN 30 MINUTES FCO BURRELL Feb 19, 2025 16:17
--- NOTE | 2025-02-19 17:35 | DVHSR ---
APPROVED REPORT EXAM: Two-dimensional and M-mode echocardiogram with Doppler and color Doppler. Blood Pressure: 158/92 mmHg INDICATION R/O structural heart disease LVEF RISK FACTORS Height: , Weight: DIMENSIONS LVDd 4.7 (3.8-5.7cm) LA (2D) 3.6 (1.9-4.0cm) Aortic Root 3.8 (2.0-3.7cm) LVDs 4.6 (2.5-4.0cm) LA (MM) (1.9-4.0cm) Aortic Cusp Exc 1.4 (1.5-2.0cm) EF (%) 15.0 (55-70%) Rt. Atrium 4.2 (1.9-4.0cm) Asc. Aorta cm IVSd 1.0 (0.7-1.1cm) RV (D) 3.3 (1.8-2.4cm) PWd 1.1 (0.7-1.1cm) Mitral Valve Mitral Mitral Stenosis E wave 0.97m/s MV Mean GR. mmHg A wave 0.89m/s MV Peak GR. mmHg E/A ratio 1.1 2D MVA cm2 DECEL Time 116ms PRESS 1/2 Time ms Aortic Valve Aortic Valve Aortic Stenosis V1 0.69m/s AO Mean GR. 4mmHg V2 1.32m/s AO Peak GR. 7mmHg LVOT Diameter 1.9 (1.8-2.4cm) Doppler SHINE 1.48cm2 Other Information Technically limited study due to body habitus. Conclusion Left ventricle: Dilated left ventricle. Borderline concentric left ventricular hypertrophy was seen. LVEF was around 15%. Diffuse hypokinesis of left ventricle with regional variation was seen. Pseudonormal left ventricular diastolic dysfunction was observed. Right ventricle was normal-sized with normal systolic function. Both atria were mildly dilated. Aortic valve was not well visualized. There was no aortic insufficiency/stenosis. There was mild mitral regurgitation. There was no tricuspid regurgitation. Pulmonary valve was not well visualized. As there was no good tricuspid regurgitation jet, right ventricular systolic pressure could not be estimated.
[2025-02-19] MEDS: LEVALBUTEROL HCL 1.25 MG/3 ML NEB NEB SCH (19:30)
[2025-02-19] MEDS ORDERED: SACUBITRIL-VALSARTAN 24mg/26mg TAB PO SCH (22:00)
[2025-02-19 22:37] LABS: INR 1.13 (0.9-1.15); Partial Thromboplastin Time 60.9 SEC (24.5-34.5); Prothrombin Time 11.8 sec (9.3-11.8)
[2025-02-20] VITALS (56 sets, daily range): BP systolic 117–194; BP diastolic 52–112; PULSE 61–108; RESP 10–25; TEMP 97.3–98.1; O2SAT 86–100
[2025-02-20 04:00] LABS: Hematocrit 40.3 % (41.0-53.0); Hemoglobin 13.3 g/dL (13.5-17.5); Mean Corpuscular Hemoglobin 27.9 pg (28.0-32.0); Mean Corpuscular Volume 84.3 fL (80.0-100.0); Nucleated Red Blood Cells % 0.1 %
[2025-02-20 04:09] LABS: Chloride 104 mmol/L (98-107); Potassium 4.4 mmol/L (3.5-5.1); Sodium 141 mmol/L (136-145)
[2025-02-20 04:10] LABS: Anion Gap 12 (5-15); Carbon Dioxide 25 mmol/L (20-31)
[2025-02-20 04:11] LABS: Calcium 9.5 mg/dL (8.7-10.4)
[2025-02-20 04:16] LABS: BUN/Creatinine Ratio 25.0 (10.0-20.0); Blood Urea Nitrogen 22 mg/dL (9-23)
[2025-02-20 04:17] LABS: Magnesium 1.9 mg/dL (1.6-2.6)
[2025-02-20 04:20] LABS: Glucose 149 mg/dL (74-106)
[2025-02-20 04:26] LABS: INR 1.08 (0.9-1.15); Prothrombin Time 11.4 sec (9.3-11.8)
[2025-02-20 04:30] LABS: Partial Thromboplastin Time 97.6 SEC (24.5-34.5)
[2025-02-20] MEDS ORDERED: HEPARIN DRIP/D5W 100UNITS/ML 250 ML IV SCH (04:45)
[2025-02-20] MEDS: HEPARIN DRIP/D5W 100UNITS/ML 250 ML IV SCH (05:37)
[2025-02-20] MEDS: IODIXANOL 320MG/ML 100ML BTL IV ONE ×2 (07:37→08:23)
[2025-02-20] MEDS: MAGNESIUM SULFATE 1GM/100ML 100 ML IV ONE (07:40)
[2025-02-20] MEDS: fentaNYL CITRATE 100 MCG/2 ML VL ONE (08:22)
[2025-02-20] MEDS: VERAPAMIL 2.5MG/ML INJ 2ML VIAL IV ONE (08:22)
[2025-02-20] MEDS: MIDAZOLAM HCL 2MG/2ML 2ml VIAL (1mg/ml) ONE (08:22)
[2025-02-20] MEDS: LIDOCAINE 2%HCL (LOCAL ANESTH.) INJ 20ML MDV ONE (08:23)
[2025-02-20] MEDS: FAMOTIDINE (10MG/ML) 2ML VL IV ONE (08:33)
[2025-02-20] MEDS: methylPREDNISolone SOD SUCC 125 MG/2 ML VL ONE ×2 (08:33→13:06)
[2025-02-20] MEDS: diphenhydrAMINE HCL 50 MG/1 ML VL ONE (08:33)
[2025-02-20] MEDS: SODIUM CHL 0.9% 50 ML ONE ×2 (08:50→09:31)
[2025-02-20] MEDS: ANGIOMAX 250 MG VIAL IV ONE ×2 (08:50→09:31)
--- NOTE | 2025-02-20 09:06 | ECG ---
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
--- NOTE | 2025-02-20 09:07 | ECG ---
[facility] Test Date: 2025-02-18 Test Time: 10:36:13 Pat Name: DYLLAN SCALES Department: ED Room: [address] [place] [address] Gender: M Post Form Remover: aditi : 1940 Requested By: DI LOWE Order Number: [id number] Reading MD: Candido Harden Measurements Intervals [place] Rate: 82 P: 82 SC: 165 QRS: 45 QRSD: 87 T: 0 QT: 396 QTc: 463 Interpretive Statements Sinus rhythm Nonspecific repol abnormality, diffuse leads Electronically Signed On 02-23-2025 19:05:55 PST by Candido Harden Please click the below link to view image of tracing.
--- NOTE | 2025-02-20 09:07 | ECG ---
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
[2025-02-20] MEDS: CLOPIDOGREL BISULFATE 75 MG TAB ONE (09:53)
[2025-02-20] MEDS: hydrALAZINE HCL 20 MG/ML VL ONE ×2 (09:53→12:08)
--- NOTE | 2025-02-20 10:33 | DVHOP2 ---
Operative Report Procedures performed: Left heart catheterization and bilateral coronary angiogram PCI (drug-eluting stent deployment) of proximal LAD/mid RCA/distal RCA Shockwave of proximal LAD IVUS of proximal LAD Moderate sedation lasting at least 45 minutes Diagnosis: Multivessel coronary artery disease Proximal RCA with 80% lesion (hazy and culprit), status post IVUS/shock wave/PCI (drug-eluting stent deployment) Mid RCA with 95% lesion (status post PCI/drug-eluting stent deployment) and distal RCA with 90% lesion (status post PCI/drug-eluting stent deployment) LVEF of 30% Cardiac suggestion for management: Dual antiplatelet therapy (loaded with aspirin/Plavix) for at least 1 year next High potency statin Beta blockers YIMI Inhibitor versus ARB Guideline directed medical therapy for systolic heart failure Optimized medical therapy Lifestyle and risk factor modifications Findings: LVEF: 30% LVEDP: 31 mm Hg There was no transaortic valve pressure gradient Left main: Left main was coming off the left sinus of Valsalva. It was free of disease. LAD: LAD was coming off the left main. Proximal LAD had 80% focal lesion which was hazy and was considered the culprit. Mid to distal LAD had mild diffuse disease. LAD looked calcified. First diagonal was a medium-sized vessel with 50% ostial disease. Second diagonal was large vessel with 70% ostial disease. Third diagonal small vessel with minor diffuse disease. Ramus intermedius: Ramus intermedius was a small-caliber vessel which was free of disease and came off the left main. LCX: LCX was a medium-sized vessel which came off the left main. It provided a large bifurcating obtuse marginal which revealed minor luminal irregularities. RCA: RCA was coming off the right sinus of Valsalva. It was a dominant vessel and provided RPDA/RPLS. Proximal RCA had a focal 50% lesion. Mid RCA had focal 95% lesion. Distal RCA had 90% focal disease. RPDA/RPLS had minor diffuse disease Presentation: Patient is a 84-year-old gentleman who presented to another facility ([facility]) with chest pain. Was found to have increased troponin and was transferred to our facility with diagnosis of non-STEMI. In our facility ([facility]), troponin (high sensitive) peaked at 3461. Echocardiogram revealed reduced systolic function (EF of 15%). As outpatient, the patient has had a stress test in 2022 which revealed preserved left ventricular systolic function and inferior wall scar. In [facility], CT angiography of the lungs ruled out acute pulmonary embolism. It also reported no aneurysmal dilatation of great vessels. It also partially r evealed endovascular stent in the abdominal aorta (no problem reported). It is of note that the patient has previous diagnosis of AAA for which has had abdominal stenting (many years ago). Other past medical history includes hypertension, hyperlipidemia, COPD (on home oxygen for chronic respiratory failure) obstructive sleep apnea and osteoarthritis. With diagnosis of non-STEMI and newly diagnosed heart failure, the patient was sent for cardiac catheterization. Procedure: After obtaining informed consent, the patient was brought to the confectionery laboratory manager. He was prepped and draped in sterile fashion. Right radial artery was used for access site. Using Seldinger technique, the right radial artery was accessed and a 6 [place] slender sheath was inserted into it. As he was allergic to contrast dye, he was given the cocktail for contrast allergy (famotidine/Benadryl/methylprednisolone). 1.5 mg of Versed and 75 mcg of fentanyl were given for moderate sedation (lasting more than 45 minutes). Five [place] tiger 4 diagnostic catheter was used to perform bilateral coronary angiogram and left heart catheterization (obtaining pressures and performing left ventriculography). We did recognize the disease in proximal LAD which was hazy and was considered the culprit for the presentation. We also recognized the disease is in mid and distal RCA. Decision was made to proceed with intervention and to start the intervention for LAD disease. Patient was started on Angiomax. A 6 [place] EBU guiding catheter was used to access the left coronary system. A run-through wire was used to cross the lesion in proximal LAD. We used a 3.0 x 12 compliant balloon for predilatation. At this point, we decided to use IVUS for further lesion catheterization and sizing. We did recognize calcified lesion in proximal LAD and decision was made to proceed with shockwave. A 3.5 shockwave system was used (we did go up to 6 atmospheres). We proceeded to deploy a stent. A 3.5 x 15 drug-eluting stent was deployed across the lesion in proximal LAD. We did use the IVUS to further evaluate the stent position. We proceeded with postdilatation with a 4.0 x 8 noncompliant balloon and inflated it even up to 25 atmospheres. Repeat imaging by IVUS revealed good deployed stent. At this point we put our attention to RCA lesions. Decision was made to proceed with intervening on them. A 6 [place] JR4 guiding catheter was used to access the right coronary system. The same run-through wire was used to cross the lesions (mid RCA and distal RCA). We proceeded with predilatation. We did use a 2.5 x 12 compliant balloon for predilatation of both lesions. We decided to proceed with deploying stents. A 2.5 x 15 drug- eluting stent was deployed across the distal RCA lesion (inflated to 16 atmospheres making it 2.75 in size). A 3.0 x 15 drug-eluting stent was deployed across the mid RCA lesion (inflated to 16 atmospheres and making a 3.25 in size). A 3.0 x 12 noncompliant balloon was used for postdilatation of the mid RCA stent (inflated to 25 atmospheres/3.25 in size). Repeat angiography revealed well deployed stents in mid and distal RCA. It is of note that BARRY flow in LAD prior to intervention was BARRY 3 flow. Post intubation in LAD, remaining disease in LAD was only 5%. Post intervention in LAD, BARRY flow rem ained BARRY 3 flow. Repeat imaging in the left coronary system revealed well deployed stents. It is also of note that BARRY flow in RCA prior to intervention was BARRY 3 flow. Post intervention in RCA, remaining disease in mid RCA was 5% and remaining disease in distal RCA was 5%. Post intervention in RCA, BARRY flow in RCA remained BARRY 3 flow. There was no dissection/hematoma/perforation throughout the procedure. Patient tolerated the procedure with no complication. Total bleeding was less than 15 mL. Right radial artery access site was managed by deploying a TR band. It is of note that after the procedure (after he came down the table and in recovery room) patient complained of shortness of breath and chest tightness. Repeat EKG was nonrevealing. Patient responded to sublingual nitro and IV Lasix. It was assessed to represent/reflect acute heart failure. Fluoroscopy time: 27.2 minutes contrast: 290 mL HARLEY MCKENZIE MD Feb 20, 2025 10:33
[2025-02-20] MEDS: FUROSEMIDE 20 MG/2 ML VIAL ONE ×2 (10:42→11:31)
[2025-02-20] MEDS: NITROGLYCERIN 0.4 MG SL TAB SL ONE ×2 (10:42→10:45)
[2025-02-20] MEDS: FUROSEMIDE 40 MG/4 ML VIAL IV ONE (10:45)
--- NOTE | 2025-02-20 11:20 | DVHPN2 ---
Progress Note - Dictate Date Seen: Feb 20, 2025 Medical Necessity Reason Pt with a Central, PICC or Fol: No vital signs Vital Sign Date Time Temp Pulse Resp B/P (MAP) Pulse Ox O2 Delivery O2 Flow Rate FiO2 02/20/25 09:23 98.1 90 18 154/94 (114) 96 98.1 02/20/25 08:00 Nasal Cannula* 2 28 Total Intake and Output 02/19/25 02/19/25 02/20/25 15:00 23:00 07:00 Intake Total 1290 ml 500 ml Balance 1290 ml 500 ml medications Current Medications Medications Dose Ordered Sig/Walter Route Start Time Stop Time Status Last Admin Dose Admin Acetaminophen/ Hydrocodone Bitart 1 tab Q4HP PRN PO 02/18/25 10:30 Ondansetron HCl 4 mg Q4HP PRN IV 02/18/25 10:30 Docusate Sodium 100 mg BIDPRN PRN PO 02/18/25 10:30 Acetaminophen 650 mg Q6HP PRN PO 02/18/25 10:30 Morphine Sulfate 2 mg Q4HPRN PRN IV 02/18/25 10:30 Aspirin 81 mg DAILY PO 02/19/25 10:00 02/19/25 08:58 81 MG Atorvastatin Calcium 40 mg DAILY PO 02/18/25 10:30 02/19/25 08:57 40 MG Pantoprazole Sodium 40 mg DAILY IV 02/19/25 10:00 02/19/25 08:57 40 MG Isosorbide Mononitrate 30 mg DAILY PO 02/18/25 15:54 02/19/25 08:59 30 MG Carvedilol 6.25 mg Q12HR PO 02/19/25 10:00 02/19/25 21:41 6.25 MG Ipratropium [place] 0.5 mg Q6HWA NEB 02/18/25 18:00 02/20/25 05:58 0.5 MG Levalbuterol HCl 0.625 mg Q6HR NEB 02/19/25 18:00 02/20/25 05:58 0.625 MG Valsartan 80 mg DAILY PO 02/20/25 10:00 Heparin Sodium/ Dextrose 250 ml @ 9 mls/hr Q24H IV 02/20/25 05:30 02/20/25 05:37 9 MLS/HR laboratory and microbiology Laboratory Tests 02/20/25 03:39 Test 02/20/25 03:39 Range/Units Serum Glucose 149 H 74-106 mg/dL Assessment/Plan s/p LHC and intervention. s/p PCI (GONZALEZ), shockwave of proximal LAD. s/p PCI (GONZALEZ deployment of mid and distal RCA). Did have SOB and was given IV lasix for acute heart failure. Was short of breath and started on BiPAP and to be managed in ICU/SERGIO. This is an 84-year old male known outside to our practice who initially presented 02/18/2025 with reported chest pains described as pressure-like in nature (later resolved). Patient reports he had checked his blood pressure during the event while at home and conveys systolic blood pressure had been found > 200mmHg for which EMS was called and patient was later transported to [facility] for further medical evaluation. While undergoing management within [facility] ED, patient had been found to have abnormal troponin levels concerning for NSTEMI which patient was subsequently transferred to present facility for further cardiac management/evaluation for ischemic workup. Upon ED arrival at present facility, initial high sensitive troponin level had been found elevated at 2542 which had peaked at 3461, with a subsequent downtrend to 2568. Serial 12-lead electrocardiograms had been consistent with sinus rhythm, no evidence for any notable ST segment elevation. LDL was found to be 71. D-Dimer had been found elevated at 3.21 which BLE venous duplex had ruled out deep vein thrombosis. Chest x-ray had revealed no evidence for acute cardiopulmonary abnormalities. CTA of the Chest has been ordered and remains pending at present time of consultation. Throughout course of present hospitalization, patient had been initiated on Heparin infusion and later admitted to the telemetry unit where he has been undergoing further management. Review of outside records reveal patient had underwent ischemic workup by Alda scan 12/19/2022 which had reported presence of a fixed defect involving the proximal to distal inferior and inferoseptal segments with no inducible ischemia. Does have history of AAA and is status post previous repair from before which patient denies any abdominal or back pains and is with stable renal function. Does have previous history of peripheral arterial disease and is status post BLE revascularization on Plavix as outpatient. Of note, patient does report inconsistency with outpatient anti-hypertensive regiment which could have attributed to hypertensive emergency (blood pressure later controlled). At present, remains hemodynamically Denies any active chest pain. Denies any shortness of breath, palpitations, dizziness, syncope, abdominal pain, back pain, orthopnea, paroxysmal nocturnal dyspnea, dyspnea on exertion, or any further cardiac related symptoms. Cardiology services were subsequently involved by primary team request for cardiac aspects of care. Past medical history includes abdominal aortic aneurysm status post repair (2002), hypertension, hyperlipidemia, peripheral arterial disease status post previous revascularization (on Plavix as outpatient), COPD on home oxygen, obstructive sleep apnea, and osteoarthritis. Patient is status post previous appendectomy, left shoulder, and left ankle surgery. Denies tobacco use. Reports occasional alcohol use and denies any illicit drug use. Does have reported contrast allergy. Alda Scan: (12/19/2022 Performed as Outpatient) revealed Myocardial Perfusion: A medium sized, mild to moderate severity, fixed defect exists in the proximal to distal inferior and inferoseptal segments. Findings are compatible with previous Myocardial infarction with preserved systolic function. There is no ischemia. Ejection Fraction 60%. Overall Study Quality: Fair. TID Index: 0.98 Echocardiogram revealed: Left ventricle: Dilated left ventricle. Borderline concentric left ventricular hypertrophy was seen. LVEF was around 15%. Diffuse hypokinesis of left ventricle with regional variation was seen. Pseudonormal left ventricular diastolic dysfunction was observed. Right ventricle was normal- sized with normal systolic function. Both atria were mildly dilated. Aortic valve was not well visualized. There was no aortic insufficiency/stenosis. There was mild mitral regurgitation. There was no tricuspid regurgitation. Pulmonary valve was not well visualized. As there was no good tricuspid regurgitation jet, right ventricular systolic pressure could not be estimated. LHC revealed: multivessel CAD. s/p shockwave and GONZALEZ deployment of proximal LAD and also GONZALEZ deployment of mid and distal RCA NSTEMI, concern for type I physiology Abnormal HS troponins (2542, 3321, 3461, 2568) Abnormal D-Dimer (3.21), rule out PE/DVT Hypertensive emergency, improved PAD, s/p previous revascularization History of AAA, s/p previous repair COPD (stable), on home oxygen Hyperlipidemia, LDL of 71 CARDIAC SUGGESTIONS FOR MANAGEMENT: Manage in ICU/SERGIO DAPT: loaded with ASA and Plavix ASA: 81 mg daily and Plavix 75 mg daily for at least one year High potency statin (on 40 mg Atorvastatin for now) Beta-nazanin: on Carvedilol for now On Valsartan (ARB) Guideline directed medical therapy for systolic heart failure Add Spirinolactone To proceed with optimized medical therapy and aggressive risk factor modification during the interim To proceed with close hemodynamic surveillance and optimized blood pressure control Proceed with Heparin infusion as for now Started on Carvedilol 6.25mg twice daily Started on Isosorbide ER 30mg daily Proceed with close rate and rhythm surveillance Proceed with close hemodynamic surveillance Proceed with optimized blood pressure control Transfuse to sustain HGB level above 7.0 Sustain Magnesium level greater than 2.0 Sustain Potassium level greater than 4.0 Follow up renal function and electrolytes Management in ICU/SERGIO Follow up human resources consultant recommendations Will proceed to follow from a cardiac perspective Further recommendations per clinical progression All available diagnostic labs, EKG's, and images were personally reviewed Plan of care discussed with and agreed upon by patient / primary RN Prognosis: Guarded Thank you for allowing me to participate in the care of this patient. Further recommendations based on patients clinical course and progression, primary attending, and other consultants. Will continue to follow with primary attending. If you have any questions or concerns, please do not hesitate to contact me. A total of 75 minutes was spent reviewing the patient record, examining the patient, making a diagnostic and therapeutic plan, discussing this plan with medical personnel, following up on diagnostic studies and following the patient for clinical stability excluding any and all procedures. At least 50% of this time was spent in direct, [id number] contact. Plan discussed with: Patient, Other (nurse) HARLEY MCKENZIE MD Feb 20, 2025 11:20
[2025-02-20] MEDS: FUROSEMIDE 20 MG/2 ML VIAL IV ONE ×2 (11:31→11:45)
[2025-02-20] MEDS: ETOMIDATE (2MG/ML) 20ML VIAL IV ONE (11:43)
[2025-02-20] MEDS: MIDAZOLAM DRIP 100 mg/100mL NS 0 ML IV ONE (11:43)
[2025-02-20] MEDS: fentaNYL Drip 2500mCg/250mlNS 0 ML IV ONE (11:44)
[2025-02-20] MEDS: PROPOFOL 0 ML IV ONE (11:44)
[2025-02-20] MEDS: NOREPINEPHRINE 8 MG/250ML KIT 0 ML IV ONE (11:44)
[2025-02-20] MEDS: ROCURONIUM 10MG/ML 10ML VIAL IV ONE (11:44)
[2025-02-20] MEDS: hydrALAZINE HCL 20 MG/ML VL IV ONE (12:09)
[2025-02-20] MEDS ORDERED: methylPREDNISolone SOD SUCC 40 MG/ML VL IV ONE (13:15)
[2025-02-20] MEDS: methylPREDNISolone SOD SUCC 125 MG/2 ML VL IV ONE (13:17)
[2025-02-20] MEDS: SPIRONOLACTONE 25 MG TAB PO SCH (13:19)
--- NOTE | 2025-02-20 13:42 | DVHPNRES ---
Progress Note Date Seen: Feb 20, 2025 Resident Creating Document: FCO BURRELL RESIDENT Medical Necessity Reason Pt with a Central, PICC or Fol: Yes The following are medically ne: Maya Catheter Subjective Review of Systems Kannan Mccray is a 84-year-old male patient who presents to the ED transferred from other centre via [facility] with chief complaint of intermittent, unprovoked, oppressive retrosternal chest pain in Functional Class IV with intensity 10/10 which started on 02/17/2025 at 11:30 p.m, associated with hypertension SBP above 200 mmHg) and dizziness, prompting patient to contact EMS who evaluated him on site and decided to transfer him to the [facility]. In [facility] he was diagnosed with NSTEMI, initiating medical therapy (enoxaparin, aspirin load, and atorvastatin) relieving his symptoms to 0/10, deciding to transfer him to a center capable of coronary angiography. Patient also reports noncompliance with antihypertensive medication. Denies any other associated symptoms including palpitation, syncope, dyspnea and lower limb swelling. Past medical history hypertension, 2009 AAA status postop with endoprosthesis, 2009 right peripheral artery disease status post surgical bypass and recent bilateral lower limb peripheral revascularization on Plavix, 2018 CVA, COPD on intermittent home oxygen (3.5 L/min during nighttime), questionable obstructive sleep apnea, peptic ulcer disease, osteoarthritis, chronic back pain coronary artery disease and HFpEF (60%) with stress test on 12/2022 which ruled out ischemia (LVEF 60% and fixed defect in inferior/inferoseptal segment compatible with NM) Surgical history: 2010 bypass surgery, 2000 and peripheral artery disease surgery, recent percutaneous treatment, left 3rd digit repair, left knee repair, right ankle repair Family history: Sister had bone cancer. Father had COPD. Noncontributory to heart disease Social history: Lives in [place] with (next of kin. Ex tobacco abuse (40 pack-year history of smoking) quit 15 years ago. Denies current tobacco, alcohol and other drug abuse. Allergies: Denies Home medication: Methocarbamol 500 mg tablet, Anoro Ellipta 62.5-25 mcg inhaler, Hydrocodone-Acetaminophen 5-325 mg tablet . Albuterol Sulfate HFA 108 mcg/act inhale, Ezetimibe 10 mg tablet, Pamelor (Nortriptyline) 25 mg capsule. Clopidogrel 75 mg tablet. Pantoprazole Sodium 40 mg tablet Take 1 tablet daily. Furosemide 20 mg p.o. daily, Losartan Potassium 50 mg p.o. daily (per patient he was not taking aspirin due to peptic ulcer disease) Patient seen and examined at bedside. Completed complementary workup: Echocardiogram shows dilated LV concentric LVH and LVEF 15% with diffuse hypokinesis and pseudonormalization of left ventricle. Completed coronary angiography on 02/20/2025 which showed proximal RCA 80%, mid RCA 90% and distal RCA 95%, proximal LAD 80%, status post PCI to proximal RCA/mid RCA and proximal LAD (total of three stents placed) (rest of anatomy shows 1st diagonal 50% and 2nd diagonal 70%, LVEF 30%). Immediate postop patient presented flash pulmonary edema associated with severe hypertension, responding to BiPAP antihypertensive medication and IV furosemide. Presented traumatic placement of Maya with hematuria. Patient upgraded to ICU status. Objective vital signs Vital Sign Date Time Temp Pulse Resp B/P (MAP) Pulse Ox O2 Delivery O2 Flow Rate FiO2 02/20/25 13:18 76 171/86 02/20/25 09:23 98.1 18 96 98.1 02/20/25 08:00 Nasal Cannula* 2 28 Total Intake and Output 02/19/25 02/19/25 02/20/25 15:00 23:00 07:00 Intake Total 1290 ml 500 ml Balance 1290 ml 500 ml medications Current Medications Medications Dose Ordered Sig/Walter Route Start Time Stop Time Status Last Admin Dose Admin Acetaminophen/ Hydrocodone Bitart 1 tab Q4HP PRN PO 02/18/25 10:30 Ondansetron HCl 4 mg Q4HP PRN IV 02/18/25 10:30 Docusate Sodium 100 mg BIDPRN PRN PO 02/18/25 10:30 Acetaminophen 650 mg Q6HP PRN PO 02/18/25 10:30 Morphine Sulfate 2 mg Q4HPRN PRN IV 02/18/25 10:30 Aspirin 81 mg DAILY PO 02/19/25 10:00 02/19/25 08:58 81 MG Atorvastatin Calcium 40 mg DAILY PO 02/18/25 10:30 02/20/25 13:17 40 MG Pantoprazole Sodium 40 mg DAILY IV 02/19/25 10:00 02/20/25 13:17 40 MG Isosorbide Mononitrate 30 mg DAILY PO 02/18/25 15:54 02/20/25 13:18 30 MG Carvedilol 6.25 mg Q12HR PO 02/19/25 10:00 02/20/25 13:18 6.25 MG Ipratropium [place] 0.5 mg Q6HWA [facility] 02/18/25 18:00 02/20/25 12:03 0.5 MG Levalbuterol HCl 0.625 mg Q6HR [facility] 02/19/25 18:00 02/20/25 12:03 0.625 MG Valsartan 80 mg DAILY PO 02/20/25 10:00 Heparin Sodium/ Dextrose 250 ml @ 9 mls/hr Q24H IV 02/20/25 05:30 02/20/25 05:37 9 MLS/HR Spironolactone 25 mg DAILY PO 02/20/25 11:30 02/20/25 13:19 25 MG Examination Patient lying in bed, in no acute distress General: Lucid, afebrile, mucosae are moist Cardiovascular: Normal S1 and S2. No murmurs, gallops or rubs Respiratory: Regular ventilation mechanics. Bibasilar crackles, rest of lung auscultation is clear. Currently on Oxymizer at 5 L/min. Abdomen: Soft, nontender, no organomegaly, normal bowel sounds. Surgical wound of laparotomy completely healed MSK/skin: Mobilizes 4 limbs. Skin is dry and warm. Surgical wound of peripheral right thigh bypass completely healed. : Maya catheter in place, hematuria in bag, tube has clear urine. Neurological: Oriented in 3 spheres. No motor no sensitive deficits. Pupils are isocoric and reactive laboratory and microbiology Laboratory Tests 02/20/25 03:39 Test 02/20/25 03:39 Range/Units Serum Glucose 149 H 74-106 mg/dL Microbiology Date/Time Source Procedure Growth Status 02/18/25 14:00 Nose MRSA Screen - Final Complete Problem List/Assessment/Plan Problem List/Assessment/Plan NSTEMI type 1 - s/p PCI with 3 GONZALEZ placed Flash pulmonary edema Acute on chronic systolic congestive heart failure (HFrEF, LVEF 15%) Hypertensive crisis Ruled out acute intrathoracic aortic disease Ruled out PE Probable coronary artery disease History of AAA status post surgery History of PAD status post surgery and stent placement Patient currently on telemetry status. EKG shows sinus rhythm with LVH, no ST-elevation. Troponin elevated, now downtrending ([id number]). Cardiac chest pain (retrosternal, oppressive, responding to medical therapy), currently has no pain. installation specialist on board: Ordered angio CT of chest which ruled out PE and acute intrathoracic aortic disease. Completed coronary angiography on 02/20/2025 which showed proximal RCA 80%, mid RCA 90% and distal RCA 95%, proximal LAD 80%, status post PCI to proximal RCA/mid RCA and proximal LAD (total of three stents placed) (rest of anatomy shows 1st diagonal 50% and 2nd diagonal 70%, LVEF 30%). Immediate postop patient presented flash pulmonary edema associated with severe hypertension, responding to BiPAP, antihypertensive medication and IV furosemide Patient had completed stress test on 12/2022 which ruled out ischemia but is compatible with inferior/inferoseptal old NM. Patient denies any history of NM or stent placement. Completed Echocardiogram shows dilated LV concentric LVH and LVEF 15% with diffuse hypokinesis and pseudonormalization of left ventricle. Currently on DAPT, statins, and optimizing GDM T (on empagliflozin, spironolactone, valsartan and carvedilol). Heparin drip discontinued after revascularization, now and DVT prophylaxis Chronic respiratory failure on intermittent home oxygen (3.5 L/min) COPD, not exacerbated Questionable obstructive sleep apnea Continue with oxygen therapy on nasal cannula (Oxymizer 5 L/min) Indicated bronchodilators Traumatic hematuria Monitor Chronic back pain Osteoarthritis Optimize pain management Peptic ulcer Currently on IV pantoprazole History of tobacco dependence Patient has 40 pack-year history of smoking Goals of care discussed with patient for over 18 minutes: Full code status Discussed plan with Dr. Welch, patient, family and nurses: Patient currently on ICU status. Completed coronary angiography status post PCI with three stents placed in proximal and mid RCA and proximal LAD. Presented flash pulmonary edema after procedure responding to IV diuretics, BiPAP and antihypertensive medication. Critical care time spent including discussion with nursing, patient and family, excluding procedure: 79 minutes Plan discussed with: Patient, Spouse, Daughter, Son, Other (Nurses) My Orders My Orders Orders - FCO BURRELL RESIDENT Procedure Category Date Status Time Levalbuterol Hcl PHA 02/19/25 In Process (Xopenex Medneb) 18:00 Valsartan (Diovan) PHA 02/20/25 In Process 10:00 Visit Coding STANDARD RES Billing Provider: KORI WELCH MD Date of Service if different f: Feb 20, 2025 Common Visit Codes: 76000-MSYMWGLIHC INP/OBS CARE(HIGH) FCO BURRELL RESIDENT Feb 20, 2025 13:42
--- NOTE | 2025-02-20 13:42 | ECG ---
[facility] Test Date: 2025-02-20 Test Time: 10:36:13 Pat Name: DYLLAN SCALES Department: Room: [address] [place] [address] Gender: M Jewel Hole Gauger: JAIR : 1940 Requested By: HARLEY MCKENZIE Order Number: [id number] Reading MD: Candido Harden Measurements Intervals [place] Rate: 90 P: 68 MS: 132 QRS: 58 QRSD: 92 T: 90 QT: 380 QTc: 464 Interpretive Statements Normal sinus rhythm Nonspecific T wave abnormality Prolonged QT Electronically Signed On 02-23-2025 18:25:58 PST by Candido Harden Please click the below link to view image of tracing.
--- NOTE | 2025-02-20 13:43 | ECG ---
[facility] Test Date: 2025-02-20 Test Time: 11:52:23 Pat Name: DYLLAN SCALES Department: Room: [facility] Gender: M Director Data: : 1940 Requested By: HARLEY MCKENZIE Order Number: [id number] Reading MD: Candido Harden Measurements Intervals [place] Rate: 90 P: 58 DC: 140 QRS: 48 QRSD: 82 T: 76 QT: 362 QTc: 442 Interpretive Statements Normal sinus rhythm Nonspecific ST and T wave abnormality Electronically Signed On 02-23-2025 18:26:00 PST by Candido Harden Please click the below link to view image of tracing.
[2025-02-20 14:07] LABS: INR 1.39 (0.9-1.15); Partial Thromboplastin Time 51.4 SEC (24.5-34.5); Prothrombin Time 14.3 sec (9.3-11.8)
[2025-02-20 14:45] LABS: Base Excess -0.1 mmol/L (-2.0-3.0)
[2025-02-20] MEDS: VALSARTAN 80 MG TAB PO SCH (15:00)
[2025-02-20 15:26] LABS: Benzodiazephine Screen, Urine Pos (NEGATIVE)
[2025-02-20 15:28] LABS: Amphetamine Screen, Urine Neg (NEGATIVE); Barbiturate Scree,Urine Neg (NEGATIVE); Cannabinoid Screen, Urine Neg (NEGATIVE); Cocaine Screen, Urine Neg (NEGATIVE); Opiate Scree,Urine Neg (NEGATIVE); Phencyclidine Screen, Urine Neg (NEGATIVE)
[2025-02-20] MEDS: HYDROcodone-ACET 5/325MG TAB PO PRN (17:55)
--- NOTE | 2025-02-20 18:56 | DVH ---
CHEST RADIOGRAPH Indication: SOB Technique: Single frontal view of the chest was obtained Comparison: XY CHEST PORTABLE on DOS: 02/18/25, XR CHEST 1 VIEW on DOS: 02/18/25, XR CHEST 1 VIEW on DOS: 06/13/24 FINDINGS: Lines and Tubes: There is a radiopaque line overlying the right upper lung field. Correlate for presence of internal jugular catheter. Lungs: No focal consolidation. Pleura: No effusion. No pneumothorax. Cardiomediastinal contours: Unremarkable Bones: No acute osseous abnormality. IMPRESSION: 1. No acute cardiopulmonary disease.
[2025-02-21] VITALS (32 sets, daily range): BP systolic 95–181; BP diastolic 53–92; PULSE 34–98; RESP 12–20; TEMP 97.7–98.3; O2SAT 89–98
[2025-02-21 03:59] LABS: Hematocrit 42.7 % (41.0-53.0); Hemoglobin 13.9 g/dL (13.5-17.5); Mean Corpuscular Hemoglobin 27.7 pg (28.0-32.0); Mean Corpuscular Volume 84.9 fL (80.0-100.0); Nucleated Red Blood Cells % 0.0 %
[2025-02-21 04:13] LABS: INR 1.08 (0.9-1.15); Partial Thromboplastin Time 27.7 SEC (24.5-34.5); Prothrombin Time 11.4 sec (9.3-11.8)
[2025-02-21 04:18] LABS: Alanine Aminotransferase 25 U/L (7-40); Albumin 3.8 g/dL (3.2-4.8); Anion Gap 12 (5-15); BUN/Creatinine Ratio 24.6 (10.0-20.0); Calcium 9.3 mg/dL (8.7-10.4); Carbon Dioxide 24 mmol/L (20-31); Chloride 104 mmol/L (98-107); Magnesium 2.1 mg/dL (1.6-2.6); Potassium 4.4 mmol/L (3.5-5.1); Sodium 140 mmol/L (136-145); Total Protein 6.6 g/dL (5.7-8.2)
[2025-02-21 04:19] LABS: Bilirubin, Total 1.0 mg/dL (0.2-1.0)
[2025-02-21 04:20] LABS: Alkaline Phosphatase 131 U/L (46-116); Blood Urea Nitrogen 28 mg/dL (9-23); Glucose 132 mg/dL (74-106)
[2025-02-21] MEDS: hydrALAZINE HCL 20 MG/ML VL IV PRN (08:13)
--- NOTE | 2025-02-21 08:20 | ECG ---
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
--- NOTE | 2025-02-21 09:02 | DVH ---
ULTRASOUND OF SCROTUM AND CONTENTS. INDICATION: TESTICULAR PAIN POST TRAUMATIC [place] INSERTION COMPARISON: None TECHNIQUE: Multiple real-time grayscale sonographic and color and duplex Doppler images of the scrotum and its contents were obtained. FINDINGS: The right testicle measures 2.9 x 1.9 x 2.2 cm. The left testicle measures 2.7 x 1.8 x 1.7 cm. Both testicles demonstrate homogeneous echotexture without evidence of focal lesions. The right epididymal head measures 1.2 cm. The left epididymal head measures 4.3 cm. Left epididymal head cyst measures 0.9 cm. Echogenic areas are present within the left epididymis possibly representing gas. Subsequent color and duplex Doppler interrogation of the testes demonstrated symmetric normal vascular flow to both testicles. No focal areas of hyperemia were seen. Bilateral scrotal edema. Small left hydrocele containing debris. Small right hydrocele. IMPRESSION: Asymmetric enlargement of the left epididymis. This is a nonspecific findings. Echogenic foci are present within the epididymis possibly representing small volume gas. Small left hydrocele with debris.
--- NOTE | 2025-02-21 09:14 | DVHPN2 ---
Progress Note - Dictate Date Seen: Feb 21, 2025 Medical Necessity Reason Pt with a Central, PICC or Fol: Yes The following are medically ne: Maya Catheter vital signs Vital Sign Date Time Temp Pulse Resp B/P (MAP) Pulse Ox O2 Delivery O2 Flow Rate FiO2 02/21/25 08:13 164/77 02/21/25 08:00 71 14 96 Nasal Cannula* 3 32 02/21/25 08:00 97.8 97.8 Total Intake and Output 02/20/25 02/20/25 02/21/25 14:59 22:59 06:59 Intake Total 240 ml 130 ml Output Total 925 ml 150 ml Balance -685 ml -20 ml medications Current Medications Medications Dose Ordered Sig/Walter Route Start Time Stop Time Status Last Admin Dose Admin Acetaminophen/ Hydrocodone Bitart 1 tab Q4HP PRN PO 02/18/25 10:30 02/21/25 07:54 1 TAB Ondansetron HCl 4 mg Q4HP PRN IV 02/18/25 10:30 Docusate Sodium 100 mg BIDPRN PRN PO 02/18/25 10:30 Acetaminophen 650 mg Q6HP PRN PO 02/18/25 10:30 Morphine Sulfate 2 mg Q4HPRN PRN IV 02/18/25 10:30 Aspirin 81 mg DAILY PO 02/19/25 10:00 02/19/25 08:58 81 MG Atorvastatin Calcium 40 mg DAILY PO 02/18/25 10:30 02/20/25 13:17 40 MG Pantoprazole Sodium 40 mg DAILY IV 02/19/25 10:00 02/20/25 13:17 40 MG Isosorbide Mononitrate 30 mg DAILY PO 02/18/25 15:54 02/20/25 13:18 30 MG Carvedilol 6.25 mg Q12HR PO 02/19/25 10:00 02/20/25 22:44 6.25 MG Ipratropium [place] 0.5 mg Q6HWA [facility] 02/18/25 18:00 02/21/25 05:57 0.5 MG Levalbuterol HCl 0.625 mg Q6HR NEB 02/19/25 18:00 02/21/25 05:57 0.625 MG Valsartan 80 mg DAILY PO 02/20/25 10:00 02/20/25 15:00 80 MG Spironolactone 25 mg DAILY PO 02/20/25 11:30 02/20/25 13:19 25 MG Clopidogrel Bisulfate 75 mg DAILY PO 02/21/25 10:00 Empaglifozin 10 mg DAILY PO 02/21/25 10:00 Hydralazine HCl 10 mg Q6HP PRN IV 02/20/25 15:45 02/21/25 08:13 10 MG Enoxaparin Sodium 40 mg DAILY SC 02/21/25 10:00 Amiodarone HCl 200 mg Q12HR PO 02/21/25 10:00 laboratory and microbiology Laboratory Tests 02/21/25 02:52 Test 02/21/25 02:52 Range/Units Serum Glucose 132 H 74-106 mg/dL Assessment/Plan s/p LHC and intervention. s/p PCI (GONZALEZ), shockwave of proximal LAD. s/p PCI (GONZALEZ deployment of mid and distal RCA). Did have SOB/flash pulmonary edema and was given IV lasix for acute heart failure, was put on BIPAP and transferred to SERGIO/ICU for management. No episodes of SOB overnight. Tele revealed NSR and frequent PVCs. Hemodynamically stable. This is an 84-year old male known outside to our practice who initially presented 02/18/2025 with reported chest pains described as pressure-like in nature (later resolved). Patient reports he had checked his blood pressure during the event while at home and conveys systolic blood pressure had been found > 200mmHg for which EMS was called and patient was later transported to [facility] for further medical evaluation. While undergoing management within [facility] ED, patient had been found to have abnormal troponin levels concerning for NSTEMI which patient was subsequently transferred to present facility for further cardiac management/evaluation for ischemic workup. Upon ED arrival at present facility, initial high sensitive troponin level had been found elevated at 2542 which had peaked at 3461, with a subsequent downtrend to 2568. Serial 12-lead electrocardiograms had been consistent with sinus rhythm, no evidence for any notable ST segment elevation. LDL was found to be 71. D-Dimer had been found elevated at 3.21 which BLE venous duplex had ruled out deep vein thrombosis. Chest x-ray had revealed no evidence for acute cardiopulmonary abnormalities. CTA of the Chest has been ordered and remains pending at present time of consultation. Throughout course of present hospitalization, patient had been initiated on Heparin infusion and later admitted to the telemetry unit where he has been undergoing further management. Review of outside records reveal patient had underwent ischemic workup by Alda scan 12/19/2022 which had reported presence of a fixed defect involving the proximal to distal inferior and inferoseptal segments with no inducible ischemia. Does have history of AAA and is status post previous repair from before which patient denies any abdominal or back pains and is with stable renal function. Does have previous history of peripheral arterial disease and is status post BLE revascularization on Plavix as outpatient. Of note, patient does report inconsistency with outpatient anti-hypertensive regiment which could have attributed to hypertensive emergency (blood pressure later controlled). At present, remains hemodynamically Denies any active chest pain. Denies any shortness of breath, palpitations, dizziness, syncope, abdominal pain, back pain, orthopnea, paroxysmal nocturnal dyspnea, dyspnea on exertion, or any further cardiac related symptoms. Cardiology services were subsequently involved by primary team request for cardiac aspects of care. Past medical history includes abdominal aortic aneurysm status post repair (2002), hypertension, hyperlipidemia, peripheral arterial disease status post previous revascularization (on Plavix as outpatient), COPD on home oxygen, obstructive sleep apnea, and osteoarthritis. Patient is status post previous appendectomy, left shoulder, and left ankle surgery. Denies tobacco use. Reports occasional alcohol use and denies any illicit drug use. Does have reported contrast allergy. Alda Scan: (12/19/2022 Performed as Outpatient) revealed Myocardial Perfusion: A medium sized, mild to moderate severity, fixed defect exists in the proximal to distal inferior and inferoseptal segments. Findings are compatible with previous Myocardial infarction with preserved systolic function. There is no ischemia. Ejection Fraction 60%. Overall Study Quality: Fair. TID Index: 0.98 Echocardiogram revealed: Left ventricle: Dilated left ventricle. Borderline concentric left ventricular hypertrophy was seen. LVEF was around 15%. Diffuse hypokinesis of left ventricle with regional variation was seen. Pseudonormal left ventricular diastolic dysfunction was observed. Right ventricle was normal- sized with normal systolic function. Both atria were mildly dilated. Aortic valve was not well visualized. There was no aortic insufficiency/stenosis. There was mild mitral regurgitation. There was no tricuspid regurgitation. Pulmonary valve was not well visualized. As there was no good tricuspid regurgitation jet, right ventricular systolic pressure could not be estimated. LHC revealed: multivessel CAD. s/p shockwave and GONZALEZ deployment of proximal LAD and also GONZALEZ deployment of mid and distal RCA NSTEMI, concern for type I physiology Abnormal HS troponins (2542, 3321, 3461, 2568) Abnormal D-Dimer (3.21), rule out PE/DVT Hypertensive emergency, improved PAD, s/p previous revascularization History of AAA, s/p previous repair COPD (stable), on home oxygen Hyperlipidemia, LDL of 71 Frequent PVC Multivessel CAD s/p PCI CARDIAC SUGGESTIONS FOR MANAGEMENT: Manage in ICU/SERGIO ASA: 81 mg daily and Plavix 75 mg daily for at least one year High potency statin (on 40 mg Atorvastatin for now) Beta-nazanin: on Carvedilol for now On Valsartan (ARB) On Aldactone Guideline directed medical therapy for systolic heart failure Add Amiodarone: 200 mg PO BID To proceed with optimized medical therapy and aggressive risk factor modification during the interim To proceed with close hemodynamic surveillance and optimized blood pressure control Proceed with Heparin infusion as for now Started on Carvedilol 6.25mg twice daily Started on Isosorbide ER 30mg daily Proceed with close rate and rhythm surveillance Proceed with close hemodynamic surveillance Proceed with optimized blood pressure control Transfuse to sustain HGB level above 7.0 Sustain Magnesium level greater than 2.0 Sustain Potassium level greater than 4.0 Follow up renal function and electrolytes Management in ICU/SERGIO Follow up organization development consultant recommendations Will proceed to follow from a cardiac perspective Further recommendations per clinical progression All available diagnostic labs, EKG's, and images were personally reviewed Plan of care discussed with and agreed upon by patient / primary RN Prognosis: Guarded Thank you for allowing me to participate in the care of this patient. Further recommendations based on patients clinical course and progression, primary attending, and other consultants. Will continue to follow with primary attending. If you have any questions or concerns, please do not hesitate to contact me. A total of 75 minutes was spent reviewing the patient record, examining the patient, making a diagnostic and therapeutic plan, discussing this plan with medical personnel, following up on diagnostic studies and following the patient for clinical stability excluding any and all procedures. At least 50% of this time was spent in direct, [id number] contact. Plan discussed with: Patient, Other (nurse) HARLEY MCKENZIE MD Feb 21, 2025 09:14
[2025-02-21] MEDS: AMIODARONE HCL 200 MG TAB PO SCH (10:18)
[2025-02-21] MEDS: EMPAGLIFLOZIN 10 MG TAB PO SCH (10:21)
[2025-02-21] MEDS: CLOPIDOGREL BISULFATE 75 MG TAB PO SCH (10:22)
[2025-02-21] MEDS: ENOXAPARIN SOD 40 MG/0.4 ML SYRINGE SC SCH (10:23)
[2025-02-21] MEDS ORDERED: KETOROLAC TROMETH 30 MG/ML 1ML VIAL IV ONE (10:45)
--- NOTE | 2025-02-21 15:02 | DVHPNRES ---
Progress Note Date Seen: Feb 21, 2025 Resident Creating Document: FCO BURRELL RESIDENT Medical Necessity Reason Pt with a Central, PICC or Fol: Yes The following are medically ne: Maya Catheter Subjective Review of Systems Kannan Mccray is a 84-year-old male patient who presents to the ED transferred from other centre via [facility] with chief complaint of intermittent, unprovoked, oppressive retrosternal chest pain in Functional Class IV with intensity 10/10 which started on 02/17/2025 at 11:30 p.m, associated with hypertension SBP above 200 mmHg) and dizziness, prompting patient to contact EMS who evaluated him on site and decided to transfer him to [facility]. In [facility] he was diagnosed with NSTEMI, initiating medical therapy (enoxaparin, aspirin load, and atorvastatin) relieving his symptoms to 0/10, deciding to transfer him to a center capable of coronary angiography. Patient also reports noncompliance with antihypertensive medication. Denies any other associated symptoms including palpitation, syncope, dyspnea and lower limb swelling. Past medical history hypertension, 2009 AAA status postop with endoprosthesis, 2009 right peripheral artery disease status post surgical bypass and recent bilateral lower limb peripheral revascularization on Plavix, 2018 CVA, COPD on intermittent home oxygen (3.5 L/min during nighttime), questionable obstructive sleep apnea, peptic ulcer disease, osteoarthritis, chronic back pain coronary artery disease and HFpEF (60%) with stress test on 12/2022 which ruled out ischemia (LVEF 60% and fixed defect in inferior/inferoseptal segment compatible with PR) Surgical history: 2010 bypass surgery, 2000 and peripheral artery disease surgery, recent percutaneous treatment, left 3rd digit repair, left knee repair, right ankle repair Family history: Sister had bone cancer. Father had COPD. Sister has heart disease status post ICD placement Social history: Lives in [place] with (next of kin. Ex tobacco abuse (40 pack-year history of smoking) quit 15 years ago. Denies current tobacco, alcohol and other drug abuse. Allergies: Denies Home medication: Methocarbamol 500 mg tablet, Anoro Ellipta 62.5-25 mcg inhaler, Hydrocodone-Acetaminophen 5-325 mg tablet . Albuterol Sulfate HFA 108 mcg/act inhale, Ezetimibe 10 mg tablet, Pamelor (Nortriptyline) 25 mg capsule. Clopidogrel 75 mg tablet. Pantoprazole Sodium 40 mg tablet Take 1 tablet daily. Furosemide 20 mg p.o. daily, Losartan Potassium 50 mg p.o. daily (per patient he was not taking aspirin due to peptic ulcer disease) Patient seen and examined at bedside. Patient is currently in ICU status. Telemetry evidenced bigeminy, retail presentation specialist indicated continue GDM T and added amiodarone. Patient is complaining of testicular pain and microscopic hematuria after traumatic Maya placement, testicular ultrasound evidence probable gas in epididymis, consulted Urology. Objective vital signs Vital Sign Date Time Temp Pulse Resp B/P (MAP) Pulse Ox O2 Delivery O2 Flow Rate FiO2 02/21/25 13:00 93 16 142/73 90 0.0 02/21/25 12:25 Room Air* N/A Oxymizer 02/21/25 12:00 98.1 98.1 Total Intake and Output 02/20/25 02/20/25 02/21/25 15:00 23:00 07:00 Intake Total 240 ml 130 ml Output Total 925 ml 150 ml Balance -685 ml -20 ml medications Current Medications Medications Dose Ordered Sig/Walter Route Start Time Stop Time Status Last Admin Dose Admin Acetaminophen/ Hydrocodone Bitart 1 tab Q4HP PRN PO 02/18/25 10:30 02/21/25 07:54 1 TAB Ondansetron HCl 4 mg Q4HP PRN IV 02/18/25 10:30 Docusate Sodium 100 mg BIDPRN PRN PO 02/18/25 10:30 Acetaminophen 650 mg Q6HP PRN PO 02/18/25 10:30 Morphine Sulfate 2 mg Q4HPRN PRN IV 02/18/25 10:30 Aspirin 81 mg DAILY PO 02/19/25 10:00 02/21/25 10:17 81 MG Pantoprazole Sodium 40 mg DAILY IV 02/19/25 10:00 02/21/25 10:17 40 MG Isosorbide Mononitrate 30 mg DAILY PO 02/18/25 15:54 02/21/25 10:20 30 MG Carvedilol 6.25 mg Q12HR PO 02/19/25 10:00 02/21/25 10:19 6.25 MG Ipratropium [place] 0.5 mg Q6HWA [facility] 02/18/25 18:00 02/21/25 12:28 0.5 MG Levalbuterol HCl 0.625 mg Q6HR NEB 02/19/25 18:00 02/21/25 12:28 0.625 MG Valsartan 80 mg DAILY PO 02/20/25 10:00 02/21/25 10:20 80 MG Spironolactone 25 mg DAILY PO 02/20/25 11:30 02/21/25 10:17 25 MG Clopidogrel Bisulfate 75 mg DAILY PO 02/21/25 10:00 02/21/25 10:22 75 MG Empaglifozin 10 mg DAILY PO 02/21/25 10:00 02/21/25 10:21 10 MG Hydralazine HCl 10 mg Q6HP PRN IV 02/20/25 15:45 02/21/25 08:13 10 MG Enoxaparin Sodium 40 mg DAILY SC 02/21/25 10:00 02/21/25 10:23 40 MG Amiodarone HCl 200 mg Q12HR PO 02/21/25 10:00 02/21/25 10:18 200 MG Atorvastatin Calcium 40 mg HS PO 02/21/25 22:00 Examination Patient lying in bed, in no acute distress General: Lucid, afebrile, mucosae are moist Cardiovascular: Normal S1 and S2. No murmurs, gallops or rubs Respiratory: Normal ventilation mechanics. Clear lung sounds on auscultation. Breathing room air Abdomen: Soft, nontender, no organomegaly, normal bowel sounds. Surgical wound of laparotomy completely healed MSK/skin: Mobilizes 4 limbs. Skin is dry and warm. Surgical wound of peripheral right thigh bypass completely healed. : Maya catheter in place, hematuria in bag, tube has clear urine. Left Testicular pain on palpation Neurological: Oriented in 3 spheres. No motor no sensitive deficits. Pupils are isocoric and reactive laboratory and microbiology Laboratory Tests 02/21/25 02:52 Test 02/21/25 02:52 Range/Units Serum Glucose 132 H 74-106 mg/dL Microbiology Date/Time Source Procedure Growth Status 02/18/25 14:00 Nose MRSA Screen - Final Complete Problem List/Assessment/Plan Problem List/Assessment/Plan NSTEMI type 1 - s/p PCI with 3 GONZALEZ placed Flash pulmonary edema Acute on chronic systolic congestive heart failure (HFrEF, LVEF 15%) Hypertensive crisis Ventricular Bigeminy Ruled out acute intrathoracic aortic disease Ruled out PE Probable coronary artery disease History of AAA status post surgery History of PAD status post surgery and stent placement Patient currently on telemetry status. EKG shows sinus rhythm with LVH, no ST-elevation. Troponin elevated, now downtrending ([id number]). Cardiac chest pain (retrosternal, oppressive, responding to medical therapy), currently has no pain. public transit specialist on board: Ordered angio CT of chest which ruled out PE and acute intrathoracic aortic disease. Completed coronary angiography on 02/20/2025 which showed proximal RCA 80%, mid RCA 90% and distal RCA 95%, proximal LAD 80%, status post PCI to proximal RCA/mid RCA and proximal LAD (total of three stents placed) (rest of anatomy shows 1st diagonal 50% and 2nd diagonal 70%, LVEF 30%). Immediate postop patient presented flash pulmonary edema associated with severe hypertension, responding to BiPAP, antihypertensive medication and IV furosemide Patient had completed stress test on 12/2022 which ruled out ischemia but is compatible with inferior/inferoseptal old PR. Patient denies any history of PR or stent placement. Completed Echocardiogram shows dilated LV concentric LVH and LVEF 15% with diffuse hypokinesis and pseudonormalization of left ventricle. Currently on DAPT, statins, and optimizing GDM T (on empagliflozin, spironolactone, valsartan and carvedilol). Heparin drip discontinued after revascularization, now and DVT prophylaxis Added amiodarone Acute on hronic respiratory failure on intermittent home oxygen (3.5 L/min) COPD, not exacerbated Questionable obstructive sleep apnea Requiring oxygen therapy up to BiPAP, currently breathing room air Indicated bronchodilators Traumatic hematuria Completed testicular ultrasound which shows questionable gas in epididymis Persistent microscopic hematuria Consulted Urology. Chronic back pain Osteoarthritis Optimize pain management Peptic ulcer Currently on IV pantoprazole History of tobacco dependence Patient has 40 pack-year history of smoking Goals of care discussed with patient for over 18 minutes: Full code status Discussed plan with Dr. Welch, patient, family and nurses: Patient currently on ICU status. Completed coronary angiography status post PCI with three stents placed in proximal and mid RCA and proximal LAD. Presented flash pulmonary edema after procedure responding to IV diuretics, BiPAP and antihypertensive medication. Optimizing GDM T and rest of cardioprotective medication. Consulted Urology due to persistent macroscopic hematuria and testicular pain. Critical care time spent including discussion with nursing, patient and family, excluding procedure: 74 minutes Plan discussed with: Patient, Spouse, Daughter, Other (Nurses) My Orders My Orders Orders - FCO BURRELL Procedure Category Date Status Time Hydralazine Injection PHA 02/20/25 In Process (Apresoline Inject 15:45 Urine Bacterial NELI 02/20/25 In Process Culture 16:52 * Urology Consult CONS 02/20/25 Transmitted 17:56 Testicular Ultrasound US 02/21/25 Resulted 10:00 Enoxaparin Sodium PHA 02/21/25 In Process (Lovenox) 10:00 Abg W/ Co-Ox RT 02/21/25 Logged 09:51 Pt Request For Service PT 02/21/25 Logged 10:30 Atorvastatin (Lipitor) PHA 02/21/25 In Process 22:00 Visit Coding STANDARD RES Billing Provider: KORI WELCH MD Date of Service if different f: Feb 21, 2025 Common Visit Codes: [id number] INP/OBS CARE(HIGH) FCO BURRELL RESIDENT Feb 21, 2025 15:02
--- NOTE | 2025-02-21 15:47 | DVHINCON2 ---
Date of service: Feb 21, 2025 Referring Physician Hospitalist Reason for Consultation hematuria History of Present Illness History Source: Patient, RN Notes, MD Notes Exam Limitations: No limitations HPI 84 yo male currently admitted to ICU for management of NSTEMI, acute systolic heart failure (EF 30%) AND COMPLEX CAD S/P RECENT CARDIAC CATH AND STENT PLACEMENT. He c/o scrotal pain and hematuria following gallego catheter placement. Pt is on DAPT as well as enoxaparin. Scrotal US demonstrated asymmetric enlargement of the left epididymis with intraparenchymal echogenic foci possibly representing gas, bilateral scrotal edema, and small bilateral hydroceles with debris. Normal intratesticular, symmetric flow. At time of exam foleyis draining concentrated yellow urine with residual brick colored urine in the collection bag. No clot or obstruction. He is getting up with PT Home Meds Reported Medications Hydrocodone-Acetaminophen (Hydrocodone/Acetaminophen 5-325 mg) 1 Tab Tab, 1 TAB PO Q6HP PRN for PAIN SCALE 7 THRU 10, TAB 02/18/25 Umeclidinium-Vilanterol (Anoro Ellipta 62.5-25 Mcg/INH) 1 Aer Aer, 1 AER IN, AER 02/18/25 Nortriptyline Hcl (PAMELOR CAPSULE) 25 Mg Cp, CAP PO 02/18/25 Losartan Potassium (Losartan Potassium) 50 Mg Tab, 1 TAB PO BID 02/18/25 Pantoprazole Sodium Sesquihydr (Pantoprazole Sodium) 40 Mg Tab, 1 TAB PO DAILY 02/18/25 Clopidogrel Bisulfate (CLOPIDOGREL) 75 Mg Tab, 1 TAB PO DAILY 02/18/25 Ezetimibe (Ezetimibe) 10 Mg Tab, 1 TAB PO DAILY 02/18/25 Albuterol Sulfate (Albuterol Sulfate Hfa) 108 Mcg/Act Aer, INH 02/18/25 Methocarbamol (Methocarbamol) 500 Mg Tab, 1 TAB PO BID 02/18/25 Aspirin (Aspir-81) 81 Mg Tab, 81 MG OR DAILY 01/23/12 [Nortriptoline] No Conflict Check, 25 MG PO BID 01/23/12 Clopidogrel Bisulfate (Plavix) 75 Mg Tab, 75 MG OR DAILY 01/23/12 Simvastatin (Simvastatin) 20 Mg Tab, 20 MG OR DAILY 01/23/12 Atenolol (Atenolol) 50 Mg Tab, 50 MG OR DAILY 01/23/12 Past Medical History Cardiac: CAD, HTN, CO Patient Family History: Patient reports no known family medical history. Review of Systems Genitourinary: Hematuria, Pain H&P Exam Vital Signs Vital Signs Date Time Temp Pulse Resp B/P (MAP) Pulse Ox O2 Delivery O2 Flow Rate FiO2 02/21/25 13:00 93 16 142/73 90 0.0 02/21/25 12:25 Room Air* N/A Oxymizer 02/21/25 12:00 98.1 98.1 General Appeara: Well developed, Well nourished, Normal Appearance Pulmonary/Respiratory: Normal inspection, Normal breath sounds, Chest non- tender, Lungs clear Cardiovascular/Chest: Normal inspection, Regular rate, Normal Rhythm Neuro/Mental St: Alert, Oriented Appearance: Appropriate appearance, Appropriate insight Eye contact/ Speech: Cooperative, Good eye contact, Normal speech Skin Exam: Normal inspection, Normal color, Warm/dry Labs/Xrays [place] [id number] Ph: [phone] DIAGNOSTIC IMAGING Diagnostic Imaging Report : [id number] Signed PATIENT: DYLLAN SCALES ACCT: [id number] UNIT: [id number] : 1940 LOC: ICU CENTRL ROOM / BED: [facility] / A AGE / SEX: 84 / M ADM STATUS: ADM IN SERVICE 1000 ORDERING PHYSICIAN: FCO BURRELL RESIDENT PROCEDURE(s): TESUS - TESTICULAR ULTRASOUND REASON: TESTICULAR PAIN POST TRAUMATIC GALLEGO INSERTION ORDER NUMBER(s): [id number], ACCESSION NUMBER(s): [id number] ULTRASOUND OF SCROTUM AND CONTENTS. INDICATION: TESTICULAR PAIN POST TRAUMATIC [place] INSERTION COMPARISON: None TECHNIQUE: Multiple real-time grayscale sonographic and color and duplex Doppler images of the scrotum and its contents were obtained. FINDINGS: The right testicle measures 2.9 x 1.9 x 2.2 cm. The left testicle measures 2.7 x 1.8 x 1.7 cm. Both testicles demonstrate homogeneous echotexture without evidence of focal lesions. The right epididymal head measures 1.2 cm. The left epididymal head measures 4.3 cm. Left epididymal head cyst measures 0.9 cm. Echogenic areas are present wit hin the left epididymis possibly representing gas. Subsequent color and duplex Doppler interrogation of the testes demonstrated symmetric normal vascular flow to both testicles. No focal areas of hyperemia were seen. Bilateral scrotal edema. Small left hydrocele containing debris. Small right hydrocele. IMPRESSION: Asymmetric enlargement of the left epididymis. This is a nonspecific findings. Echogenic foci are present within the epididymis possibly representing small volume gas. Small left hydrocele with debris. ATED BY: MARIO ALBERTO NASH MD DICTATED DATE/TIME: 02/21/25899 SIGNED BY: MARIO ALBERTO NASH MD SIGNED DATE/TIME: 02/21/25899 CC: Labs Test 02/21/25 02:52 02/20/25 14:34 02/20/25 14:01 02/19/25 14:35 Range/Units White Blood Count 12.9 #H 4.4-10.8 10^3/uL Red Blood Count 5.03 4.5-5.90 10^6/uL Hemoglobin 13.9 13.5-17.5 g/dL Hematocrit 42.7 41.0-53.0 % Mean Corpuscular Volume 84.9 80.0-100.0 fL Mean Corpuscular Hemoglobin 27.7 L 28.0-32.0 pg Mean Corpuscular Hemoglobin Concent 32.6 32.0-36.0 g/dL Red Cell Distribution Width 18.0 H 11.8-14.3 % Platelet Count 224 140-450 10^3/uL Mean Platelet Volume 8.9 6.9-10.8 fL Neutrophils (%) (Auto) 87.4 H 37.0-80.0 % Lymphocytes (%) (Auto) 6.9 L 10.0-50.0 % Monocytes (%) (Auto) 5.6 0.0-12.0 % Eosinophils (%) (Auto) 0.0 0.0-7.0 % Basophils (%) (Auto) 0.1 0.0-2.0 % Neutrophils # (Auto) 11.3 H 1.6-8.6 10 ^3/uL Lymphocytes # (Auto) 0.9 0.4-5.4 10 ^3/uL Monocytes # (Auto) 0.7 0-1.3 10 ^3/uL Eosinophils # (Auto) 0 0-0.8 10 ^3/uL Basophils # (Auto) 0 0-0.2 10 ^3/uL Nucleated Red Blood Cells 0.0 % Prothrombin Time 11.4 9.3-11.8 sec Prothrombin Time INR 1.08 0.9-1.15 Activated Partial Thromboplast Time 27.7 24.5-34.5 SEC Sodium Level 140 136-145 mmol/L Potassium Level 4.4 3.5-5.1 mmol/L Chloride Level 104 98-107 mmol/L Carbon Dioxide Level 24 20-31 mmol/L Anion Gap 12 5-15 Blood Urea Nitrogen 28 H 9-23 mg/dL Creatinine 1.14 0.700-1.30 mg/dL Glomerular Filtration Rate Calc 63 >90 mL/min BUN/Creatinine Ratio 24.6 H 10.0-20.0 Serum Glucose 132 H 74-106 mg/dL Calcium Level 9.3 8.7-10.4 mg/dL Phosphorus Level 5.2 H 2.4-5.1 mg/dL Magnesium Level 2.1 1.6-2.6 mg/dL Total Bilirubin 1.0 0.2-1.0 mg/dL Aspartate Amino Transferase (AST) 29 13-40 U/L Alanine Aminotransferase (ALT) 25 7-40 U/L Alkaline Phosphatase 131 H 46-116 U/L Total Protein 6.6 5.7-8.2 g/dL Albumin 3.8 3.2-4.8 g/dL Urine Opiates Screen Neg NEGATIVE Urine Fentanyl Screen Neg NEGATIVE Urine Barbiturates Screen Neg NEGATIVE Urine Phencyclidine Screen Neg NEGATIVE Urine Amphetamines Screen Neg NEGATIVE Urine Benzodiazepines Screen Pos NEGATIVE Urine Cocaine Screen Neg NEGATIVE Urine Cannabinoids Screen Neg NEGATIVE Blood Gas Specimen Type Arterial Blood Gas Sample Site Left radial Blood Gas Patient Temperature 37.0 Arterial Blood Date Drawn [id number] Arterial Blood pH 7.528 H 7.350-7.450 Arterial Blood Partial Pressure CO2 25.6 L 35.0-48.0 mmHg Arterial Blood Partial Pressure O2 148.6 H 83.0-108.0 mmHg Arterial Blood HCO3 20.8 L 21.0-28.0 mmol/L Arterial Blood Oxygen Saturation 99.2 H 94.0-98.0 % Arterial Blood Base Excess -0.1 -2.0-3.0 mmol/L Arterial Blood Oxyhemoglobin 98.1 H 94.0-98.0 % Arterial Blood Carboxyhemoglobin 0.8 0.5-1.5 % Arterial Blood Methemoglobin 0.3 0.0-1.5 % Arterial Blood Deoxyhemoglobin 0.8 0.0-5.0 % Pal Test Modified Blood Gas Total Hemoglobin 15.80 13.5-17.5 g/dL Blood Gas Modality Mask - bipap FiO2 % 50.0 Blood Gas EPAP 5 Blood Gas IPAP 12 Lactic Acid Level 2.0 0.4-2.0 mmol/L Test 02/19/25 05:10 02/19/25 01:40 02/18/25 17:42 02/18/25 14:30 Range/Units Hemoglobin A1c 5.6 <5.7 % A1C B-Type Natriuretic Peptide 269.87 0-100 pg/mL Vitamin B12 Level 422 211-911 pg/mL Vitamin D 25-Hydroxy 48.6 30.0-100 ng/mL Influenza Type A Antigen Negative Negative Influenza Type B Antigen Negative Negative SARS-CoV-2 Antigen (Rapid) Negative NEGATIVE Troponin I High Sensitivity 2568 *H </=54 ng/L D-Dimer, Quantitative 3.21 H 0.0-0.49 mg/L FEU Triglycerides Level 78 < 150 mg/dL Cholesterol Level 161 < 200 mg/dL LDL Cholesterol 71 < 100 mg/dL HDL Cholesterol 73 H 40-59 mg/dL Test 02/18/25 10:53 02/18/25 09:42 Range/Units Urine Color Yellow Yellow Urine Clarity Clear Clear Urine pH 7.0 5.0-9.0 Urine Specific Gamaliel 1.024 1.001-1.035 Urine Protein 1+ H Negative Urine Ketones Negative Negative Urine Blood Negative Negative /uL Urine Nitrite Negative Negative Urine Bilirubin Negative Negative Urine Urobilinogen 3 H Negative mg/dL Urine Leukocyte Esterase Negative Negative /uL Urine RBC 2 0 - 3 /hpf Urine Microscopic WBC 1 0-3 /HPF Urine Squamous Epithelial Cells None seen <5 /hpf Urine Bacteria None seen None Seen /hpf Urine Glucose Normal Normal mg/dL Direct Bilirubin 0.3 <0.3 mg/dL Thyroid Stimulating Hormone (TSH) 1.09 0.55-4.78 uIU/mL Microbiology Date/Time Source Procedure Growth Status 02/18/25 14:00 Nose MRSA Screen - Final Complete Assessment/Plan Problem List: (1) Hematuria (2) Epididymitis (3) Hydrocele in adult (4) NOLAN (acute kidney injury) (5) Non-STEMI (non-ST elevated myocardial infarction) Plan continue gallego catheter to gravity drainage avoid NSAIDs scrotal elevation with ice prn abx per primary Plan discussed with: Patient, Other SUSANA DAMON NP Feb 21, 2025 15:47
[2025-02-21] MEDS ORDERED: MORPHINE SULFATE INJ 2 MG/ml SYRG IV ONE (19:00)
[2025-02-21] MEDS ORDERED: HYDROmorphone HCL 2 MG/ML VL/or syr IV ONE (19:15)
[2025-02-21] MEDS: LIDOCAINE 2% JELLY 11ml (GLYDO) UR ONE ×3 (20:00→21:16)
[2025-02-21] MEDS: TAMSULOSIN HYDROCHLORIDE 0.4 MG CAP PO ONE (21:12)
[2025-02-21] MEDS: HYDROmorphone HCL 2 MG/ML VL/or syr IV ONE (21:15)
[2025-02-21] MEDS: ATORVASTATIN 20 MG TAB PO SCH (22:17)
[2025-02-22] VITALS (39 sets, daily range): BP systolic 95–154; BP diastolic 51–102; PULSE 56–90; RESP 8–26; TEMP 97.2–98.3; O2SAT 90–100
[2025-02-22 03:25] LABS: Hematocrit 44.5 % (41.0-53.0); Hemoglobin 14.1 g/dL (13.5-17.5); Mean Corpuscular Hemoglobin 27.8 pg (28.0-32.0); Mean Corpuscular Volume 87.8 fL (80.0-100.0); Nucleated Red Blood Cells % 0.2 %
[2025-02-22 03:42] LABS: INR 1.08 (0.9-1.15); Partial Thromboplastin Time 27.4 SEC (24.5-34.5); Prothrombin Time 11.4 sec (9.3-11.8)
[2025-02-22 03:43] LABS: Alanine Aminotransferase 26 U/L (7-40); Albumin 3.6 g/dL (3.2-4.8); Anion Gap 12 (5-15); BUN/Creatinine Ratio 34.6 (10.0-20.0); Bilirubin, Total 0.8 mg/dL (0.2-1.0); Carbon Dioxide 25 mmol/L (20-31); Chloride 104 mmol/L (98-107); Glucose 100 mg/dL (74-106); Magnesium 2.2 mg/dL (1.6-2.6); Potassium 4.4 mmol/L (3.5-5.1); Sodium 141 mmol/L (136-145); Total Protein 6.0 g/dL (5.7-8.2)
[2025-02-22 03:47] LABS: Alkaline Phosphatase 122 U/L (46-116); Blood Urea Nitrogen 55 mg/dL (9-23); Calcium 8.6 mg/dL (8.7-10.4)
[2025-02-22] MEDS: LORazepam 2MG/ML-1ML VIAL IV ONE (06:42)
[2025-02-22] MEDS: LORazepam 2MG/ML-1ML VIAL ONE (06:46)
[2025-02-22] MEDS ORDERED: LORazepam 2MG/ML-1ML VIAL IV PRN (08:00)
[2025-02-22] MEDS ORDERED: MORPHINE SULFATE 4 MG/ML SYR/VIAL IV PRN (08:15)
--- NOTE | 2025-02-22 10:15 | DVHPN2 ---
Progress Note - Dictate Date Seen: Feb 22, 2025 Medical Necessity Reason Pt with a Central, PICC or Fol: Yes The following are medically ne: Maya Catheter vital signs Vital Sign Date Time Temp Pulse Resp B/P (MAP) Pulse Ox O2 Delivery O2 Flow Rate FiO2 02/22/25 08:01 98.3 63 14 115/63 (80) 95 98.3 02/22/25 06:15 Nasal Cannula 2.0 02/22/25 06:15 28 Total Intake and Output 02/21/25 02/21/25 02/22/25 15:00 23:00 07:00 Intake Total 741 ml 500 ml 150 ml Output Total 109 ml 350 ml Balance 741 ml 391 ml -200 ml medications Current Medications Medications Dose Ordered Sig/Walter Route Start Time Stop Time Status Last Admin Dose Admin Acetaminophen/ Hydrocodone Bitart 1 tab Q4HP PRN PO 02/18/25 10:30 02/21/25 07:54 1 TAB Ondansetron HCl 4 mg Q4HP PRN IV 02/18/25 10:30 Docusate Sodium 100 mg BIDPRN PRN PO 02/18/25 10:30 Acetaminophen 650 mg Q6HP PRN PO 02/18/25 10:30 Aspirin 81 mg DAILY PO 02/19/25 10:00 02/21/25 10:17 81 MG Pantoprazole Sodium 40 mg DAILY IV 02/19/25 10:00 02/21/25 10:17 40 MG Isosorbide Mononitrate 30 mg DAILY PO 02/18/25 15:54 02/21/25 10:20 30 MG Carvedilol 6.25 mg Q12HR PO 02/19/25 10:00 02/21/25 22:17 6.25 MG Ipratropium [place] 0.5 mg Q6HWA NEB 02/18/25 18:00 02/22/25 06:22 0.5 MG Levalbuterol HCl 0.625 mg Q6HR NEB 02/19/25 18:00 02/22/25 06:22 0.625 MG Valsartan 80 mg DAILY PO 02/20/25 10:00 02/21/25 10:20 80 MG Spironolactone 25 mg DAILY PO 02/20/25 11:30 02/21/25 10:17 25 MG Clopidogrel Bisulfate 75 mg DAILY PO 02/21/25 10:00 02/21/25 10:22 75 MG Empaglifozin 10 mg DAILY PO 02/21/25 10:00 02/21/25 10:21 10 MG Hydralazine HCl 10 mg Q6HP PRN IV 02/20/25 15:45 02/21/25 08:13 10 MG Enoxaparin Sodium 40 mg DAILY SC 02/21/25 10:00 02/21/25 10:23 40 MG Amiodarone HCl 200 mg Q12HR PO 02/21/25 10:00 02/21/25 22:16 200 MG Atorvastatin Calcium 40 mg HS PO 02/21/25 22:00 02/21/25 22:17 40 MG Tamsulosin HCl 0.4 mg HS PO 02/22/25 22:00 Lorazepam 0.5 mg Q6HP PRN IV 02/22/25 08:00 Morphine Sulfate 2 mg Q4HPRN PRN IV 02/22/25 08:15 Ceftriaxone Sodium 50 ml @ 100 mls/hr DAILY@09 IV 02/23/25 09:00 laboratory and microbiology Laboratory Tests 02/22/25 02:37 Test 02/22/25 02:37 Range/Units Serum Glucose 100 74-106 mg/dL Assessment/Plan s/p LHC and intervention. s/p PCI (GONZALEZ), shockwave of proximal LAD. s/p PCI (GONZALEZ deployment of mid and distal RCA). Did have SOB/flash pulmonary edema and was given IV lasix for acute heart failure, was put on BIPAP and transferred to SERGIO/ICU for management. No episodes of SOB overnight. Tele revealed NSR and frequent PVCs. Hemodynamically stable. Improved and transferred out of ICU This is an 84-year old male known outside to our practice who initially presented 02/18/2025 with reported chest pains described as pressure-like in nature (later resolved). Patient reports he had checked his blood pressure during the event while at home and conveys systolic blood pressure had been found > 200mmHg for which EMS was called and patient was later transported to [facility] for further medical evaluation. While undergoing management within [facility] ED, patient had been found to have abnormal troponin levels concerning for NSTEMI which patient was subsequently transferred to present facility for further cardiac management/evaluation for ischemic workup. Upon ED arrival at present facility, initial high sensitive troponin level had been found elevated at 2542 which had peaked at 3461, with a subsequent downtrend to 2568. Serial 12-lead electrocardiograms had been consistent with sinus rhythm, no evidence for any notable ST segment elevation. LDL was found to be 71. D-Dimer had been found elevated at 3.21 which BLE venous duplex had ruled out deep vein thrombosis. Chest x-ray had revealed no evidence for acute cardiopulmonary abnormalities. CTA of the Chest has been ordered and remains pending at present time of consultation. Throughout course of present hospitalization, patient had been initiated on Heparin infusion and later admitted to the telemetry unit where he has been undergoing further management. Review of outside records reveal patient had underwent ischemic workup by Alda scan 12/19/2022 which had reported presence of a fixed defect involving the proximal to distal inferior and inferoseptal segments with no inducible ischemia. Does have history of AAA and is status post previous repair from before which patient denies any abdominal or back pains and is with stable renal function. Does have previous history of peripheral arterial disease and is status post BLE revascularization on Plavix as outpatient. Of note, patient does report inconsistency with outpatient anti-hypertensive regiment which could have attributed to hypertensive emergency (blood pressure later controlled). At present, remains hemodynamically Denies any active chest pain. Denies any shortness of breath, palpitations, dizziness, syncope, abdominal pain, back pain, orthopnea, paroxysmal nocturnal dyspnea, dyspnea on exertion, or any further cardiac related symptoms. Cardiology services were subsequently involved by primary team request for cardiac aspects of care. Past medical history includes abdominal aortic aneurysm status post repair (2002), hypertension, hyperlipidemia, peripheral arterial disease status post previous revascularization (on Plavix as outpatient), COPD on home oxygen, obstructive sleep apnea, and osteoarthritis. Patient is status post previous appendectomy, left shoulder, and left ankle surgery. Denies tobacco use. Reports occasional alcohol use and denies any illicit drug use. Does have reported contrast allergy. Alda Scan: (12/19/2022 Performed as Outpatient) revealed Myocardial Perfusion: A medium sized, mild to moderate severity, fixed defect exists in the proximal to distal inferior and inferoseptal segments. Findings are compatible with previous Myocardial infarction with preserved systolic function. There is no ischemia. Ejection Fraction 60%. Overall Study Quality: Fair. TID Index: 0.98 Echocardiogram revealed: Left ventricle: Dilated left ventricle. Borderline concentric left ventricular hypertrophy was seen. LVEF was around 15%. Diffuse hypokinesis of left ventricle with regional variation was seen. Pseudonormal left ventricular diastolic dysfunction was observed. Right ventricle was normal- sized with normal systolic function. Both atria were mildly dilated. Aortic valve was not well visualized. There was no aortic insufficiency/stenosis. There was mild mitral regurgitation. There was no tricuspid regurgitation. Pulmonary valve was not well visualized. As there was no good tricuspid regurgitation jet, right ventricular systolic pressure could not be estimated. LHC revealed: multivessel CAD. s/p shockwave and GONZALEZ deployment of proximal LAD and also GONZALEZ deployment of mid and distal RCA NSTEMI, concern for type I physiology Abnormal HS troponins (2542, 3321, 3461, 2568) Abnormal D-Dimer (3.21), rule out PE/DVT Hypertensive emergency, improved PAD, s/p previous revascularization History of AAA, s/p previous repair COPD (stable), on home oxygen Hyperlipidemia, LDL of 71 Frequent PVC Multivessel CAD s/p PCI CARDIAC SUGGESTIONS FOR MANAGEMENT: Manage in tele ASA: 81 mg daily and Plavix 75 mg daily for at least one year High potency statin (on 40 mg Atorvastatin for now) Beta-nazanin: on Carvedilol for now On Valsartan (ARB) On Aldactone Guideline directed medical therapy for systolic heart failure Add Amiodarone: 200 mg PO BID Cardiac fraser, is stable and can be followed as outpatient To proceed with optimized medical therapy and aggressive risk factor modification during the interim To proceed with close hemodynamic surveillance and optimized blood pressure control Proceed with Heparin infusion as for now Started on Carvedilol 6.25mg twice daily Started on Isosorbide ER 30mg daily Proceed with close rate and rhythm surveillance Proceed with close hemodynamic surveillance Proceed with optimized blood pressure control Transfuse to sustain HGB level above 7.0 Sustain Magnesium level greater than 2.0 Sustain Potassium level greater than 4.0 Follow up renal function and electrolytes Management in tele Follow up senior health consultant recommendations Will proceed to follow from a cardiac perspective Further recommendations per clinical progression All available diagnostic labs, EKG's, and images were personally reviewed Plan of care discussed with and agreed upon by patient / primary RN Prognosis: Guarded Thank you for allowing me to participate in the care of this patient. Further recommendations based on patients clinical course and progression, primary attending, and other consultants. Will continue to follow with primary attending. If you have any questions or concerns, please do not hesitate to contact me. A total of 75 minutes was spent reviewing the patient record, examining the patient, making a diagnostic and therapeutic plan, discussing this plan with medical personnel, following up on diagnostic studies and following the patient for clinical stability excluding any and all procedures. At least 50% of this time was spent in direct, [id number] contact. Dietary Evaluation Review Comments: follow Cardiac diet to meet At least 75% of his needs monitor PO intakes, updated lab values and skin integumentary data Expected Outcomes/Goals: avoid wt loss Plan discussed with: Patient, Other (nurse) HARLEY MCKENZIE MD Feb 22, 2025 10:15
--- NOTE | 2025-02-22 11:16 | DVH ---
EXAM DESCRIPTION: RENAL ULTRASOUND CLINICAL HISTORY: Evaluate Post obtructive NOLAN, recent traumatic hematuria COMPARISON: None TECHNIQUE: Multiplanar ultrasound examination of the kidneys and urinary bladder was performed. FINDINGS: The right kidney measures 11.4 cm. No renal calculus. No hydronephrosis.. No solid renal masses. Multiple right renal cysts measuring up to 2.6 cm. The left kidney measures 11.8 cm. No renal calculus. Mild left pelviectasis without significant hydronephrosis.. No solid renal masses. Multiple left renal cyst measuring up to 3 cm. The echogenicity of the kidneys is within normal limits. Moderately distended urinary bladder, volume 734 mL. IMPRESSION: 1. Mild left pelviectasis without significant hydronephrosis. 2. Moderately distended urinary bladder. 3. Bilateral renal cysts.
--- NOTE | 2025-02-22 13:45 | DVHPNRES ---
Progress Note Date Seen: Feb 22, 2025 Resident Creating Document: FCO BURRELL RESIDENT Medical Necessity Reason Pt with a Central, PICC or Fol: Yes The following are medically ne: Maya Catheter Subjective Review of Systems Kannan Mccray is a 84-year-old male patient who presents to the ED transferred from other centre via [facility] with chief complaint of intermittent, unprovoked, oppressive retrosternal chest pain in Functional Class IV with intensity 10/10 which started on 02/17/2025 at 11:30 p.m, associated with hypertension SBP above 200 mmHg) and dizziness, prompting patient to contact EMS who evaluated him on site and decided to transfer him to the [facility]. In [facility] he was diagnosed with NSTEMI, initiating medical therapy (enoxaparin, aspirin load, and atorvastatin) relieving his symptoms to 0/10, deciding to transfer him to a center capable of coronary angiography. Patient also reports noncompliance with antihypertensive medication. Denies any other associated symptoms including palpitation, syncope, dyspnea and lower limb swelling. Past medical history hypertension, 2009 AAA status postop with endoprosthesis, 2009 right peripheral artery disease status post surgical bypass and recent bilateral lower limb peripheral revascularization on Plavix, 2018 CVA, COPD on intermittent home oxygen (3.5 L/min during nighttime), questionable obstructive sleep apnea, peptic ulcer disease, osteoarthritis, chronic back pain coronary artery disease and HFpEF (60%) with stress test on 12/2022 which ruled out ischemia (LVEF 60% and fixed defect in inferior/inferoseptal segment compatible with ND) Surgical history: 2010 bypass surgery, 2000 and peripheral artery disease surgery, recent percutaneous treatment, left 3rd digit repair, left knee repair, right ankle repair Family history: Sister had bone cancer. Father had COPD. Sister has heart disease status post ICD placement Social history: Lives in [place] with (next of kin. Ex tobacco abuse (40 pack-year history of smoking) quit 15 years ago. Denies current tobacco, alcohol and other drug abuse. Allergies: Denies Home medication: Methocarbamol 500 mg tablet, Anoro Ellipta 62.5-25 mcg inhaler, Hydrocodone-Acetaminophen 5-325 mg tablet . Albuterol Sulfate HFA 108 mcg/act inhale, Ezetimibe 10 mg tablet, Pamelor (Nortriptyline) 25 mg capsule. Clopidogrel 75 mg tablet. Pantoprazole Sodium 40 mg tablet Take 1 tablet daily. Furosemide 20 mg p.o. daily, Losartan Potassium 50 mg p.o. daily (per patient he was not taking aspirin due to peptic ulcer disease) Patient seen and examined at bedside. Patient does not present anymore bigeminy on monitor, we will downgrade to telemetry. Patient's Maay was removed on 02/21/2025 since there was no urine output, after removal there was a presence of blood clot in Maya catheter. Patient currently able to urinate small amounts, bladder scan initially showed over 900, currently now 700. Urology consulted. Objective vital signs Vital Sign Date Time Temp Pulse Resp B/P (MAP) Pulse Ox O2 Delivery O2 Flow Rate FiO2 02/22/25 12:00 14 94 Nasal Cannula* 2 28 02/22/25 12:00 98.1 72 107/60 (76) 98.1 Total Intake and Output 02/21/25 02/21/25 02/22/25 15:00 23:00 07:00 Intake Total 741 ml 500 ml 150 ml Output Total 109 ml 350 ml Balance 741 ml 391 ml -200 ml medications Current Medications Medications Dose Ordered Sig/Walter Route Start Time Stop Time Status Last Admin Dose Admin Acetaminophen/ Hydrocodone Bitart 1 tab Q4HP PRN PO 02/18/25 10:30 02/21/25 07:54 1 TAB Ondansetron HCl 4 mg Q4HP PRN IV 02/18/25 10:30 Docusate Sodium 100 mg BIDPRN PRN PO 02/18/25 10:30 Acetaminophen 650 mg Q6HP PRN PO 02/18/25 10:30 Aspirin 81 mg DAILY PO 02/19/25 10:00 02/22/25 10:20 81 MG Pantoprazole Sodium 40 mg DAILY IV 02/19/25 10:00 02/22/25 10:17 40 MG Isosorbide Mononitrate 30 mg DAILY PO 02/18/25 15:54 02/22/25 10:24 30 MG Carvedilol 6.25 mg Q12HR PO 02/19/25 10:00 02/22/25 10:18 6.25 MG Ipratropium [place] 0.5 mg Q6HWA [facility] 02/18/25 18:00 02/22/25 06:22 0.5 MG Levalbuterol HCl 0.625 mg Q6HR NEB 02/19/25 18:00 02/22/25 06:22 0.625 MG Valsartan 80 mg DAILY PO 02/20/25 10:00 02/22/25 10:45 80 MG Spironolactone 25 mg DAILY PO 02/20/25 11:30 02/22/25 10:21 25 MG Clopidogrel Bisulfate 75 mg DAILY PO 02/21/25 10:00 02/22/25 10:21 75 MG Empaglifozin 10 mg DAILY PO 02/21/25 10:00 02/22/25 10:20 10 MG Hydralazine HCl 10 mg Q6HP PRN IV 02/20/25 15:45 02/21/25 08:13 10 MG Enoxaparin Sodium 40 mg DAILY SC 02/21/25 10:00 02/22/25 10:23 40 MG Amiodarone HCl 200 mg Q12HR PO 02/21/25 10:00 02/22/25 10:19 200 MG Atorvastatin Calcium 40 mg HS PO 02/21/25 22:00 02/21/25 22:17 40 MG Tamsulosin HCl 0.4 mg HS PO 02/22/25 22:00 Lorazepam 0.5 mg Q6HP PRN IV 02/22/25 08:00 Morphine Sulfate 2 mg Q4HPRN PRN IV 02/22/25 08:15 Ceftriaxone Sodium 50 ml @ 100 mls/hr DAILY@09 IV 02/23/25 09:00 Examination Patient lying in bed, in no acute distress General: Lucid, afebrile, mucosae are moist Cardiovascular: Normal S1 and S2. No murmurs, gallops or rubs Respiratory: Normal ventilation mechanics. Clear lung sounds on auscultation. Breathing room air Abdomen: Soft, nontender, no organomegaly, normal bowel sounds. Surgical wound of laparotomy completely healed MSK/skin: Mobilizes 4 limbs. Skin is dry and warm. Surgical wound of peripheral right thigh bypass completely healed. : Testicular pain mild palpation. Mild hematuria what spontaneous urination Neurological: Oriented in 3 spheres. No motor no sensitive deficits. Pupils are isocoric and reactive laboratory and microbiology Laboratory Tests 02/22/25 02:37 Test 02/22/25 02:37 Range/Units Serum Glucose 100 74-106 mg/dL Microbiology Date/Time Source Procedure Growth Status 02/20/25 14:34 Urine - Maya [place] Urine Culture - Preliminary No growth Resulted 02/18/25 14:00 Nose MRSA Screen - Final Complete Problem List/Assessment/Plan Problem List/Assessment/Plan NSTEMI type 1 - s/p PCI with 3 GONZALEZ placed Flash pulmonary edema Acute on chronic systolic congestive heart failure (HFrEF, LVEF 15%) Hypertensive crisis Ventricular Bigeminy Ruled out acute intrathoracic aortic disease Ruled out PE Probable coronary artery disease History of AAA status post surgery History of PAD status post surgery and stent placement Patient currently on telemetry status. EKG shows sinus rhythm with LVH, no ST-elevation. Troponin elevated, now downtrending ([id number]). Cardiac chest pain (retrosternal, oppressive, responding to medical therapy), currently has no pain. senior training specialist on board: Ordered angio CT of chest which ruled out PE and acute intrathoracic aortic disease. Completed coronary angiography on 02/20/2025 which showed proximal RCA 80%, mid RCA 90% and distal RCA 95%, proximal LAD 80%, status post PCI to proximal RCA/mid RCA and proximal LAD (total of three stents placed) (rest of anatomy shows 1st diagonal 50% and 2nd diagonal 70%, LVEF 30%). Immediate postop patient presented flash pulmonary edema associated with severe hypertension, responding to BiPAP, antihypertensive medication and IV furosemide Patient had completed stress test on 12/2022 which ruled out ischemia but is compatible with inferior/inferoseptal old ND. Patient denies any history of ND or stent placement. Completed Echocardiogram shows dilated LV concentric LVH and LVEF 15% with diffuse hypokinesis and pseudonormalization of left ventricle. Currently on DAPT, statins, and optimizing GDM T (on empagliflozin, spironolactone, valsartan and carvedilol). Heparin drip discontinued after revascularization, now and DVT prophylaxis Added amiodarone Acute on chronic respiratory failure on intermittent home oxygen (3.5 L/min) COPD, not exacerbated Questionable obstructive sleep apnea Requiring oxygen therapy up to BiPAP, currently breathing room air Indicated bronchodilators NOLAN hemodynamically mediated (VMN) Traumatic hematuria Completed testicular ultrasound which shows questionable gas in epididymis Persistent microscopic hematuria Consulted Urology. After removal Maya catheter, patient is able to urinate small amounts. Currently on tamsulosin Ordered kidney ultrasound which showed mild left pelviectasis without significant hydronephrosis, moderately distended urinary bladder and bilateral renal cysts. NOLAN could be multifactorial (post traumatic hematuria, IV contrast and cardioprotective medication). We will monitor kidney function Chronic back pain Osteoarthritis Optimize pain management Peptic ulcer Currently on IV pantoprazole History of tobacco dependence Patient has 40 pack-year history of smoking Goals of care discussed with patient for over 18 minutes: Full code status Discussed plan with Dr. Welch, patient, family and nurses: Patient currently on downgraded to telemetry status. Completed coronary angiography status post PCI with three stents placed in proximal and mid RCA and proximal LAD, optimizing GDM T and rest of cardioprotective medication. Consulted Urology due to persistent macroscopic hematuria and testicular pain, currently urinating spontaneously small amounts, worsening GFR. Patient has poor prognosis. Critical care time spent including discussion with nursing, patient and family, excluding procedure: 74 minutes Plan discussed with: Patient, Daughter, Other (Nurses) My Orders My Orders Orders - FCO BURRELL Procedure Category Date Status Time Tamsulosin PHA 02/22/25 In Process Hydrochloride (Flomax) 22:00 Kidney US 02/22/25 Resulted 09:03 Ceftriaxone 1gm/50ml PHA 02/23/25 In Process (Rocephin) 09:00 Transfer Orders XFER 02/22/25 Transmitted 09:49 Dietary Evaluation Review Comments: follow Cardiac diet to meet At least 75% of his needs monitor PO intakes, updated lab values and skin integumentary data Expected Outcomes/Goals: avoid wt loss Visit Coding STANDARD RES Billing Provider: KORI WELCH MD Date of Service if different f: Feb 22, 2025 Common Visit Codes: [id number] INP/OBS CARE(HIGH) FCO BURRELL Feb 22, 2025 13:45
--- NOTE | 2025-02-22 13:54 | ECG ---
[facility] Test Date: 2025-02-22 Test Time: 06:41:05 Pat Name: DYLLAN SCALES Department: Respiratoy Room: [address] [place] [address] Gender: M Subsorter: CAROLE : 1940 Requested By: JI ARECHIGA Order Number: [id number] Reading MD: Candido Harden Measurements Intervals [place] Rate: 66 P: 269 VT: 131 QRS: 9 QRSD: 93 T: 221 QT: 418 QTc: 438 Interpretive Statements Sinus or ectopic atrial rhythm Atrial premature complex Repol abnrm suggests ischemia, anterolateral Electronically Signed On 02-23-2025 18:28:02 PST by Candido Harden Please click the below link to view image of tracing.
[2025-02-22] MEDS: LIDOCAINE 2% JELLY 11ml (GLYDO) UR ONE (14:15)
[2025-02-22] MEDS ORDERED: HYDROmorphone HCL 2 MG/ML VL/or syr IM ONE (15:00)
[2025-02-22] MEDS: HYDROmorphone HCL 2 MG/ML VL/or syr IV ONE ×2 (15:03→15:15)
[2025-02-22] MEDS: TAMSULOSIN HYDROCHLORIDE 0.4 MG CAP PO SCH (20:41)
[2025-02-23] VITALS (37 sets, daily range): BP systolic 101–141; BP diastolic 59–96; PULSE 59–87; RESP 7–25; TEMP 97.6–98.3; O2SAT 92–100
[2025-02-23 05:16] LABS: Hematocrit 41.5 % (41.0-53.0); Hemoglobin 13.3 g/dL (13.5-17.5); Mean Corpuscular Hemoglobin 27.4 pg (28.0-32.0); Mean Corpuscular Volume 85.3 fL (80.0-100.0); Nucleated Red Blood Cells % 0.1 %
[2025-02-23 05:35] LABS: Alanine Aminotransferase 21 U/L (7-40); Albumin 3.4 g/dL (3.2-4.8); Alkaline Phosphatase 107 U/L (46-116); Anion Gap 9 (5-15); BUN/Creatinine Ratio 35.7 (10.0-20.0); Carbon Dioxide 26 mmol/L (20-31); Chloride 105 mmol/L (98-107); Glucose 80 mg/dL (74-106); Magnesium 2.3 mg/dL (1.6-2.6); Potassium 4.3 mmol/L (3.5-5.1); Sodium 140 mmol/L (136-145); Total Protein 5.9 g/dL (5.7-8.2)
[2025-02-23 05:36] LABS: Bilirubin, Total 0.8 mg/dL (0.2-1.0)
[2025-02-23 05:40] LABS: Blood Urea Nitrogen 41 mg/dL (9-23); Calcium 8.6 mg/dL (8.7-10.4)
--- NOTE | 2025-02-23 07:45 | DVHPN2 ---
Progress Note - Dictate Date Seen: Feb 23, 2025 Medical Necessity Reason Pt with a Central, PICC or Fol: Yes The following are medically ne: Maya Catheter vital signs Vital Sign Date Time Temp Pulse Resp B/P (MAP) Pulse Ox O2 Delivery O2 Flow Rate FiO2 02/23/25 07:20 96 Nasal Cannula* 4 36 02/23/25 07:20 70 17 02/23/25 07:00 140/69 (92) 02/23/25 04:00 97.6 97.6 Total Intake and Output 02/22/25 02/22/25 02/23/25 15:00 23:00 07:00 Intake Total 50 ml 892 ml 75 ml Output Total 300 ml 675 ml Balance 50 ml 592 ml -600 ml medications Current Medications Medications Dose Ordered Sig/Walter Route Start Time Stop Time Status Last Admin Dose Admin Acetaminophen/ Hydrocodone Bitart 1 tab Q4HP PRN PO 02/18/25 10:30 02/21/25 07:54 1 TAB Ondansetron HCl 4 mg Q4HP PRN IV 02/18/25 10:30 Docusate Sodium 100 mg BIDPRN PRN PO 02/18/25 10:30 Acetaminophen 650 mg Q6HP PRN PO 02/18/25 10:30 Aspirin 81 mg DAILY PO 02/19/25 10:00 02/22/25 10:20 81 MG Pantoprazole Sodium 40 mg DAILY IV 02/19/25 10:00 02/22/25 10:17 40 MG Isosorbide Mononitrate 30 mg DAILY PO 02/18/25 15:54 02/22/25 10:24 30 MG Carvedilol 6.25 mg Q12HR PO 02/19/25 10:00 02/22/25 20:41 6.25 MG Ipratropium [place] 0.5 mg Q6HWA NEB 02/18/25 18:00 02/23/25 07:20 0.5 MG Levalbuterol HCl 0.625 mg Q6HR NEB 02/19/25 18:00 02/23/25 07:20 0.625 MG Valsartan 80 mg DAILY PO 02/20/25 10:00 02/22/25 10:45 80 MG Spironolactone 25 mg DAILY PO 02/20/25 11:30 02/22/25 10:21 25 MG Clopidogrel Bisulfate 75 mg DAILY PO 02/21/25 10:00 02/22/25 10:21 75 MG Empaglifozin 10 mg DAILY PO 02/21/25 10:00 02/22/25 10:20 10 MG Hydralazine HCl 10 mg Q6HP PRN IV 02/20/25 15:45 02/21/25 08:13 10 MG Enoxaparin Sodium 40 mg DAILY SC 02/21/25 10:00 02/22/25 10:23 40 MG Amiodarone HCl 200 mg Q12HR PO 02/21/25 10:00 02/22/25 20:39 200 MG Atorvastatin Calcium 40 mg HS PO 02/21/25 22:00 02/22/25 20:39 40 MG Tamsulosin HCl 0.4 mg HS PO 02/22/25 22:00 02/22/25 20:41 0.4 MG Lorazepam 0.5 mg Q6HP PRN IV 02/22/25 08:00 Morphine Sulfate 2 mg Q4HPRN PRN IV 02/22/25 08:15 Ceftriaxone Sodium 50 ml @ 100 mls/hr DAILY@09 IV 02/23/25 09:00 laboratory and microbiology Laboratory Tests 02/23/25 04:46 Test 02/23/25 04:46 Range/Units Serum Glucose 80 74-106 mg/dL Assessment/Plan s/p LHC and intervention. s/p PCI (GONZALEZ), shockwave of proximal LAD. s/p PCI (GONZALEZ deployment of mid and distal RCA). Did have SOB/flash pulmonary edema and was given IV lasix for acute heart failure, was put on BIPAP and transferred to SERGIO/ICU for management. No episodes of SOB overnight. Tele revealed NSR and frequent PVCs. Hemodynamically stable. This is an 84-year old male known outside to our practice who initially presented 02/18/2025 with reported chest pains described as pressure-like in nature (later resolved). Patient reports he had checked his blood pressure during the event while at home and conveys systolic blood pressure had been found > 200mmHg for which EMS was called and patient was later transported to [facility] for further medical evaluation. While undergoing management within [facility] ED, patient had been found to have abnormal troponin levels concerning for NSTEMI which patient was subsequently transferred to present facility for further cardiac management/evaluation for ischemic workup. Upon ED arrival at present facility, initial high sensitive troponin level had been found elevated at 2542 which had peaked at 3461, with a subsequent downtrend to 2568. Serial 12-lead electrocardiograms had been consistent with sinus rhythm, no evidence for any notable ST segment elevation. LDL was found to be 71. D-Dimer had been found elevated at 3.21 which BLE venous duplex had ruled out deep vein thrombosis. Chest x-ray had revealed no evidence for acute cardiopulmonary abnormalities. CTA of the Chest has been ordered and remains pending at present time of consultation. Throughout course of present hospitalization, patient had been initiated on Heparin infusion and later admitted to the telemetry unit where he has been undergoing further management. Review of outside records reveal patient had underwent ischemic workup by Alda scan 12/19/2022 which had reported presence of a fixed defect involving the proximal to distal inferior and inferoseptal segments with no inducible ischemia. Does have history of AAA and is status post previous repair from before which patient denies any abdominal or back pains and is with stable renal function. Does have previous history of peripheral arterial disease and is status post BLE revascularization on Plavix as outpatient. Of note, patient does report inconsistency with outpatient anti-hypertensive regiment which could have attributed to hypertensive emergency (blood pressure later controlled). At present, remains hemodynamically Denies any active chest pain. Denies any shortness of breath, palpitations, dizziness, syncope, abdominal pain, back pain, orthopnea, paroxysmal nocturnal dyspnea, dyspnea on exertion, or any further cardiac related symptoms. Cardiology services were subsequently involved by primary team request for cardiac aspects of care. Past medical history includes abdominal aortic aneurysm status post repair (2002), hypertension, hyperlipidemia, peripheral arterial disease status post previous revascularization (on Plavix as outpatient), COPD on home oxygen, obstructive sleep apnea, and osteoarthritis. Patient is status post previous appendectomy, left shoulder, and left ankle surgery. Denies tobacco use. Reports occasional alcohol use and denies any illicit drug use. Does have reported contrast allergy. Alda Scan: (12/19/2022 Performed as Outpatient) revealed Myocardial Perfusion: A medium sized, mild to moderate severity, fixed defect exists in the proximal to distal inferior and inferoseptal segments. Findings are compatible with previous Myocardial infarction with preserved systolic function. There is no ischemia. Ejection Fraction 60%. Overall Study Quality: Fair. TID Index: 0.98 Echocardiogram revealed: Left ventricle: Dilated left ventricle. Borderline concentric left ventricular hypertrophy was seen. LVEF was around 15%. Diffuse hypokinesis of left ventricle with regional variation was seen. Pseudonormal left ventricular diastolic dysfunction was observed. Right ventricle was normal- sized with normal systolic function. Both atria were mildly dilated. Aortic valve was not well visualized. There was no aortic insufficiency/stenosis. There was mild mitral regurgitation. There was no tricuspid regurgitation. Pulmonary valve was not well visualized. As there was no good tricuspid regurgitation jet, right ventricular systolic pressure could not be estimated. LHC revealed: multivessel CAD. s/p shockwave and GONZALEZ deployment of proximal LAD and also GONZALEZ deployment of mid and distal RCA NSTEMI, concern for type I physiology Abnormal HS troponins (2542, 3321, 3461, 2568) Abnormal D-Dimer (3.21), rule out PE/DVT Hypertensive emergency, improved PAD, s/p previous revascularization History of AAA, s/p previous repair COPD (stable), on home oxygen Hyperlipidemia, LDL of 71 Frequent PVC Multivessel CAD s/p PCI CARDIAC SUGGESTIONS FOR MANAGEMENT: Manage in tele ASA: 81 mg daily and Plavix 75 mg daily for at least one year High potency statin (on 40 mg Atorvastatin for now) Beta-nazanin: on Carvedilol for now On Valsartan (ARB) On Aldactone Guideline directed medical therapy for systolic heart failure On Amiodarone: 200 mg PO BID Cardiac fraser, is stable and can be followed as outpatient To proceed with optimized medical therapy and aggressive risk factor modification during the interim To proceed with close hemodynamic surveillance and optimized blood pressure control Proceed with Heparin infusion as for now Started on Carvedilol 6.25mg twice daily Started on Isosorbide ER 30mg daily Proceed with close rate and rhythm surveillance Proceed with close hemodynamic surveillance Proceed with optimized blood pressure control Transfuse to sustain HGB level above 7.0 Sustain Magnesium level greater than 2.0 Sustain Potassium level greater than 4.0 Follow up renal function and electrolytes Management in tele Follow up managed security sales consultant recommendations Will proceed to follow from a cardiac perspective Further recommendations per clinical progression All available diagnostic labs, EKG's, and images were personally reviewed Plan of care discussed with and agreed upon by patient / primary RN Prognosis: Guarded Thank you for allowing me to participate in the care of this patient. Further recommendations based on patients clinical course and progression, primary attending, and other consultants. Will continue to follow with primary attending. If you have any questions or concerns, please do not hesitate to contact me. A total of 75 minutes was spent reviewing the patient record, examining the patient, making a diagnostic and therapeutic plan, discussing this plan with medical personnel, following up on diagnostic studies and following the patient for clinical stability excluding any and all procedures. At least 50% of this time was spent in direct, [id number] contact. Dietary Evaluation Review Comments: follow Cardiac diet to meet At least 75% of his needs monitor PO intakes, updated lab values and skin integumentary data Expected Outcomes/Goals: avoid wt loss Plan discussed with: Patient, Other (nurse) HARLEY MCKENZIE MD Feb 23, 2025 07:45
--- NOTE | 2025-02-23 08:46 | DVHPNRES ---
Progress Note Date Seen: Feb 23, 2025 Resident Creating Document: FCO BURRELL RESIDENT Medical Necessity Reason Pt with a Central, PICC or Fol: Yes The following are medically ne: Maya Catheter Subjective Review of Systems Kannan Mccray is a 84-year-old male patient who presents to the ED transferred from other centre via [facility] with chief complaint of intermittent, unprovoked, oppressive retrosternal chest pain in Functional Class IV with intensity 10/10 which started on 02/17/2025 at 11:30 p.m, associated with hypertension SBP above 200 mmHg) and dizziness, prompting patient to contact EMS who evaluated him on site and decided to transfer him to the [facility]. In [facility] he was diagnosed with NSTEMI, initiating medical therapy (enoxaparin, aspirin load, and atorvastatin) relieving his symptoms to 0/10, deciding to transfer him to a center capable of coronary angiography. Patient also reports noncompliance with antihypertensive medication. Denies any other associated symptoms including palpitation, syncope, dyspnea and lower limb swelling. Past medical history hypertension, 2009 AAA status postop with endoprosthesis, 2009 right peripheral artery disease status post surgical bypass and recent bilateral lower limb peripheral revascularization on Plavix, 2018 CVA, COPD on intermittent home oxygen (3.5 L/min during nighttime), questionable obstructive sleep apnea, peptic ulcer disease, osteoarthritis, chronic back pain coronary artery disease and HFpEF (60%) with stress test on 12/2022 which ruled out ischemia (LVEF 60% and fixed defect in inferior/inferoseptal segment compatible with UT) Surgical history: 2010 bypass surgery, 2000 and peripheral artery disease surgery, recent percutaneous treatment, left 3rd digit repair, left knee repair, right ankle repair Family history: Sister had bone cancer. Father had COPD. Sister has heart disease status post ICD placement Social history: Lives in [place] with (next of kin. Ex tobacco abuse (40 pack-year history of smoking) quit 15 years ago. Denies current tobacco, alcohol and other drug abuse. Allergies: Denies Home medication: Methocarbamol 500 mg tablet, Anoro Ellipta 62.5-25 mcg inhaler, Hydrocodone-Acetaminophen 5-325 mg tablet . Albuterol Sulfate HFA 108 mcg/act inhale, Ezetimibe 10 mg tablet, Pamelor (Nortriptyline) 25 mg capsule. Clopidogrel 75 mg tablet. Pantoprazole Sodium 40 mg tablet Take 1 tablet daily. Furosemide 20 mg p.o. daily, Losartan Potassium 50 mg p.o. daily (per patient he was not taking aspirin due to peptic ulcer disease) Patient seen and examined at bedside. Downgraded to telemetry, pending bed. Patient urinating spontaneously, pending Urology consult (most likely will be discharge with follow up for eventual cystoscopy). Objective vital signs Vital Sign Date Time Temp Pulse Resp B/P (MAP) Pulse Ox O2 Delivery O2 Flow Rate FiO2 02/23/25 08:00 21 96 Nasal Cannula* 4 36 02/23/25 07:28 68 02/23/25 07:00 140/69 (92) 02/23/25 04:00 97.6 97.6 Total Intake and Output 02/22/25 02/22/25 02/23/25 15:00 23:00 07:00 Intake Total 50 ml 892 ml 75 ml Output Total 300 ml 675 ml Balance 50 ml 592 ml -600 ml medications Current Medications Medications Dose Ordered Sig/Walter Route Start Time Stop Time Status Last Admin Dose Admin Acetaminophen/ Hydrocodone Bitart 1 tab Q4HP PRN PO 02/18/25 10:30 02/21/25 07:54 1 TAB Ondansetron HCl 4 mg Q4HP PRN IV 02/18/25 10:30 Docusate Sodium 100 mg BIDPRN PRN PO 02/18/25 10:30 Acetaminophen 650 mg Q6HP PRN PO 02/18/25 10:30 Aspirin 81 mg DAILY PO 02/19/25 10:00 02/22/25 10:20 81 MG Pantoprazole Sodium 40 mg DAILY IV 02/19/25 10:00 02/22/25 10:17 40 MG Isosorbide Mononitrate 30 mg DAILY PO 02/18/25 15:54 02/22/25 10:24 30 MG Carvedilol 6.25 mg Q12HR PO 02/19/25 10:00 02/22/25 20:41 6.25 MG Ipratropium [place] 0.5 mg Q6HWA NEB 02/18/25 18:00 02/23/25 07:20 0.5 MG Levalbuterol HCl 0.625 mg Q6HR NEB 02/19/25 18:00 02/23/25 07:20 0.625 MG Valsartan 80 mg DAILY PO 02/20/25 10:00 02/22/25 10:45 80 MG Spironolactone 25 mg DAILY PO 02/20/25 11:30 02/22/25 10:21 25 MG Clopidogrel Bisulfate 75 mg DAILY PO 02/21/25 10:00 02/22/25 10:21 75 MG Empaglifozin 10 mg DAILY PO 02/21/25 10:00 02/22/25 10:20 10 MG Hydralazine HCl 10 mg Q6HP PRN IV 02/20/25 15:45 02/21/25 08:13 10 MG Enoxaparin Sodium 40 mg DAILY SC 02/21/25 10:00 02/22/25 10:23 40 MG Amiodarone HCl 200 mg Q12HR PO 02/21/25 10:00 02/22/25 20:39 200 MG Atorvastatin Calcium 40 mg HS PO 02/21/25 22:00 02/22/25 20:39 40 MG Tamsulosin HCl 0.4 mg HS PO 02/22/25 22:00 02/22/25 20:41 0.4 MG Lorazepam 0.5 mg Q6HP PRN IV 02/22/25 08:00 Morphine Sulfate 2 mg Q4HPRN PRN IV 02/22/25 08:15 Ceftriaxone Sodium 50 ml @ 100 mls/hr DAILY@09 IV 02/23/25 09:00 Examination Patient lying in bed, in no acute distress General: Lucid, afebrile, mucosae are moist Cardiovascular: Normal S1 and S2. No murmurs, gallops or rubs Respiratory: Normal ventilation mechanics. Clear lung sounds on auscultation. Breathing room air Abdomen: Soft, nontender, no organomegaly, normal bowel sounds. Surgical wound of laparotomy completely healed MSK/skin: Mobilizes 4 limbs. Skin is dry and warm. Surgical wound of peripheral right thigh bypass completely healed. : Testicular pain mild palpation. Mild hematuria what spontaneous urination Neurological: Oriented in 3 spheres. No motor no sensitive deficits. Pupils are isocoric and reactive laboratory and microbiology Laboratory Tests 02/23/25 04:46 Test 02/23/25 04:46 Range/Units Serum Glucose 80 74-106 mg/dL Microbiology Date/Time Source Procedure Growth Status 02/20/25 14:34 Urine - Maya [place] Urine Culture - Preliminary No growth Resulted 02/18/25 14:00 Nose MRSA Screen - Final Complete Problem List/Assessment/Plan Problem List/Assessment/Plan NSTEMI type 1 - s/p PCI with 3 GONZALEZ placed Flash pulmonary edema Acute on chronic systolic congestive heart failure (HFrEF, LVEF 15%) Hypertensive crisis Ventricular Bigeminy Ruled out acute intrathoracic aortic disease Ruled out PE Probable coronary artery disease History of AAA status post surgery History of PAD status post surgery and stent placement Patient currently on telemetry status. EKG shows sinus rhythm with LVH, no ST-elevation. Troponin elevated, now downtrending ([id number]). Cardiac chest pain (retrosternal, oppressive, responding to medical therapy), currently has no pain. holistic specialist on board: Ordered angio CT of chest which ruled out PE and acute intrathoracic aortic disease. Completed coronary angiography on 02/20/2025 which showed proximal RCA 80%, mid RCA 90% and distal RCA 95%, proximal LAD 80%, status post PCI to proximal RCA/mid RCA and proximal LAD (total of three stents placed) (rest of anatomy shows 1st diagonal 50% and 2nd diagonal 70%, LVEF 30%). Immediate postop patient presented flash pulmonary edema associated with severe hypertension, responding to BiPAP, antihypertensive medication and IV furosemide Patient had completed stress test on 12/2022 which ruled out ischemia but is compatible with inferior/inferoseptal old UT. Patient denies any history of UT or stent placement. Completed Echocardiogram shows dilated LV concentric LVH and LVEF 15% with diffuse hypokinesis and pseudonormalization of left ventricle. Currently on DAPT, statins, and optimizing GDM T (on empagliflozin, spironolactone, valsartan and carvedilol). Heparin drip discontinued after revascularization, now and DVT prophylaxis Added amiodarone Acute on chronic respiratory failure on intermittent home oxygen (3.5 L/min) COPD, not exacerbated Questionable obstructive sleep apnea Requiring oxygen therapy up to BiPAP, currently breathing room air Indicated bronchodilators NOLAN hemodynamically mediated (VMN) Traumatic hematuria Renal cysts Completed testicular ultrasound which shows questionable gas in epididymis Persistent microscopic hematuria Consulted Urology. After removal Maya catheter, patient is able to urinate small amounts. Currently on tamsulosin Ordered kidney ultrasound which showed mild left pelviectasis without significant hydronephrosis, moderately distended urinary bladder and bilateral renal cysts. NOLAN could be multifactorial (post traumatic hematuria, IV contrast and cardioprotective medication). We will monitor kidney function Chronic back pain Osteoarthritis Optimize pain management Peptic ulcer Currently on IV pantoprazole History of tobacco dependence Patient has 40 pack-year history of smoking Goals of care discussed with patient for over 18 minutes: Full code status Discussed plan with Dr. Welch, patient, family and nurses: Patient currently on downgraded to telemetry status. Completed coronary angiography status post PCI with three stents placed in proximal and mid RCA and proximal LAD, optimizing GDM T and rest of cardioprotective medication. Consulted Urology due to persistent macroscopic hematuria and testicular pain, currently urinating spontaneously small amounts, GFR improved. Patient has poor prognosis. Critical care time spent including discussion with nursing, patient and family, excluding procedure: 68 minutes Plan discussed with: Patient, Daughter, Other (Nurses) My Orders My Orders Orders - FCO BURRELL Procedure Category Date Status Time Kidney US 02/22/25 Resulted 09:03 Ceftriaxone 1gm/50ml PHA 02/23/25 In Process (Rocephin) 09:00 Transfer Orders XFER 02/22/25 Transmitted 09:49 Abg W/ Co-Ox RT 02/23/25 Logged 07:50 Dietary Evaluation Review Comments: follow Cardiac diet to meet At least 75% of his needs monitor PO intakes, updated lab values and skin integumentary data Expected Outcomes/Goals: avoid wt loss Visit Coding STANDARD RES Billing Provider: KORI WELCH MD Date of Service if different f: Feb 23, 2025 Common Visit Codes: [id number] INP/OBS CARE(HIGH) FCO BURRELL RESIDENT Feb 23, 2025 08:46
[2025-02-23] MEDS: FUROSEMIDE 20 MG/2 ML VIAL IV SCH (09:43)
--- NOTE | 2025-02-23 10:56 | ECG ---
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
--- NOTE | 2025-02-23 12:56 | DVH ---
CHEST RADIOGRAPH INDICATION: CHF TECHNIQUE: Single frontal view of the chest was obtained COMPARISON: XY CHEST PORTABLE on DOS: 02/20/25, XY CHEST PORTABLE on DOS: 02/18/25, XR CHEST 1 VIEW on DOS: 02/18/25, XR CHEST 1 VIEW on DOS: 06/13/24, XR CHEST 2 VIEWS on DOS: 04/03/23 FINDINGS: Lines and Tubes: None Lungs: No focal consolidation. Pleura: No effusion. No pneumothorax. Cardiomediastinal contours: Unremarkable Bones: No acute osseous abnormality. IMPRESSION: No acute cardiopulmonary disease.
[2025-02-23] MEDS: LEVALBUTEROL HCL 1.25 MG/3 ML NEB ONE (17:52)
[2025-02-23] MEDS: IPRATROPIUM BROM 0.5 MG/2.5ML INH SOL ONE (17:52)
[2025-02-24] VITALS (10 sets, daily range): BP systolic 119–138; BP diastolic 71–76; PULSE 64–71; RESP 16–19; TEMP 97.5–98.1; O2SAT 93–100
--- NOTE | 2025-02-24 08:13 | DVHPN2 ---
Progress Note - Dictate Date Seen: Feb 24, 2025 Medical Necessity Reason Pt with a Central, PICC or Fol: Yes The following are medically ne: Maya Catheter vital signs Vital Sign Date Time Temp Pulse Resp B/P (MAP) Pulse Ox O2 Delivery O2 Flow Rate FiO2 02/24/25 05:00 98.1 64 19 129/71 (90) 97 98.1 02/24/25 00:38 Nasal Cannula* 4 36 Total Intake and Output 02/23/25 02/23/25 02/24/25 15:00 23:00 07:00 Intake Total 50 ml 1130 ml 200 ml Output Total 1090 ml 560 ml Balance 50 ml 40 ml -360 ml medications Current Medications Medications Dose Ordered Sig/Walter Route Start Time Stop Time Status Last Admin Dose Admin Acetaminophen/ Hydrocodone Bitart 1 tab Q4HP PRN PO 02/18/25 10:30 02/21/25 07:54 1 TAB Ondansetron HCl 4 mg Q4HP PRN IV 02/18/25 10:30 Docusate Sodium 100 mg BIDPRN PRN PO 02/18/25 10:30 Acetaminophen 650 mg Q6HP PRN PO 02/18/25 10:30 Aspirin 81 mg DAILY PO 02/19/25 10:00 02/23/25 09:47 81 MG Pantoprazole Sodium 40 mg DAILY IV 02/19/25 10:00 02/23/25 09:44 40 MG Isosorbide Mononitrate 30 mg DAILY PO 02/18/25 15:54 02/23/25 09:48 30 MG Carvedilol 6.25 mg Q12HR PO 02/19/25 10:00 02/23/25 21:54 6.25 MG Ipratropium [place] 0.5 mg Q6HWA [facility] 02/18/25 18:00 02/24/25 07:12 0.5 MG Levalbuterol HCl 0.625 mg Q6HR [facility] 02/19/25 18:00 02/24/25 07:13 0.625 MG Valsartan 80 mg DAILY PO 02/20/25 10:00 02/23/25 09:45 80 MG Spironolactone 25 mg DAILY PO 02/20/25 11:30 02/23/25 09:47 25 MG Clopidogrel Bisulfate 75 mg DAILY PO 02/21/25 10:00 02/23/25 09:46 75 MG Empaglifozin 10 mg DAILY PO 02/21/25 10:00 02/23/25 09:46 10 MG Hydralazine HCl 10 mg Q6HP PRN IV 02/20/25 15:45 02/21/25 08:13 10 MG Enoxaparin Sodium 40 mg DAILY SC 02/21/25 10:00 02/23/25 09:48 40 MG Amiodarone HCl 200 mg Q12HR PO 02/21/25 10:00 02/23/25 21:54 200 MG Atorvastatin Calcium 40 mg HS PO 02/21/25 22:00 02/23/25 21:54 40 MG Tamsulosin HCl 0.4 mg HS PO 02/22/25 22:00 02/23/25 21:54 0.4 MG Lorazepam 0.5 mg Q6HP PRN IV 02/22/25 08:00 Morphine Sulfate 2 mg Q4HPRN PRN IV 02/22/25 08:15 Ceftriaxone Sodium 50 ml @ 100 mls/hr DAILY@09 IV 02/23/25 09:00 02/23/25 09:44 100 MLS/HR laboratory and microbiology Laboratory Tests 02/23/25 04:46 Test 02/23/25 04:46 Range/Units Serum Glucose 80 74-106 mg/dL Assessment/Plan s/p LHC and intervention. s/p PCI (GONZALEZ), shockwave of proximal LAD. s/p PCI (GONZALEZ deployment of mid and distal RCA). Did have SOB/flash pulmonary edema and was given IV lasix for acute heart failure, was put on BIPAP and transferred to SERGIO/ICU for management. No episodes of SOB overnight. Tele revealed NSR and frequent PVCs. Hemodynamically stable. This is an 84-year old male known outside to our practice who initially presented 02/18/2025 with reported chest pains described as pressure-like in nature (later resolved). Patient reports he had checked his blood pressure during the event while at home and conveys systolic blood pressure had been found > 200mmHg for which EMS was called and patient was later transported to [facility] for further medical evaluation. While undergoing management within [facility], patient had been found to have abnormal troponin levels concerning for NSTEMI which patient was subsequently transferred to present facility for further cardiac management/evaluation for ischemic workup. Upon ED arrival at present facility, initial high sensitive troponin level had been found elevated at 2542 which had peaked at 3461, with a subsequent downtrend to 2568. Serial 12-lead electrocardiograms had been consistent with sinus rhythm, no evidence for any notable ST segment elevation. LDL was found to be 71. D-Dimer had been found elevated at 3.21 which BLE venous duplex had ruled out deep vein thrombosis. Chest x-ray had revealed no evidence for acute cardiopulmonary abnormalities. CTA of the Chest has been ordered and remains pending at present time of consultation. Throughout course of present hospitalization, patient had been initiated on Heparin infusion and later admitted to the telemetry unit where he has been undergoing further management. Review of outside records reveal patient had underwent ischemic workup by Alda scan 12/19/2022 which had reported presence of a fixed defect involving the proximal to distal inferior and inferoseptal segments with no inducible ischemia. Does have history of AAA and is status post previous repair from before which patient denies any abdominal or back pains and is with stable renal function. Does have previous history of peripheral arterial disease and is status post BLE revascularization on Plavix as outpatient. Of note, patient does report inconsistency with outpatient anti-hypertensive regiment which could have attributed to hypertensive emergency (blood pressure later controlled). At present, remains hemodynamically Denies any active chest pain. Denies any shortness of breath, palpitations, dizziness, syncope, abdominal pain, back pain, orthopnea, paroxysmal nocturnal dyspnea, dyspnea on exertion, or any further cardiac related symptoms. Cardiology services were subsequently involved by primary team request for cardiac aspects of care. Past medical history includes abdominal aortic aneurysm status post repair (2002), hypertension, hyperlipidemia, peripheral arterial disease status post previous revascularization (on Plavix as outpatient), COPD on home oxygen, obstructive sleep apnea, and osteoarthritis. Patient is status post previous appendectomy, left shoulder, and left ankle surgery. Denies tobacco use. Reports occasional alcohol use and denies any illicit drug use. Does have reported contrast allergy. Alda Scan: (12/19/2022 Performed as Outpatient) revealed Myocardial Perfusion: A medium sized, mild to moderate severity, fixed defect exists in the proximal to distal inferior and inferoseptal segments. Findings are compatible with previous Myocardial infarction with preserved systolic function. There is no ischemia. Ejection Fraction 60%. Overall Study Quality: Fair. TID Index: 0.98 Echocardiogram revealed: Left ventricle: Dilated left ventricle. Borderline concentric left ventricular hypertrophy was seen. LVEF was around 15%. Diffuse hypokinesis of left ventricle with regional variation was seen. Pseudonormal left ventricular diastolic dysfunction was observed. Right ventricle was normal- sized with normal systolic function. Both atria were mildly dilated. Aortic valve was not well visualized. There was no aortic insufficiency/stenosis. There was mild mitral regurgitation. There was no tricuspid regurgitation. Pulmonary valve was not well visualized. As there was no good tricuspid regurgitation jet, right ventricular systolic pressure could not be estimated. LHC revealed: multivessel CAD. s/p shockwave and GONZALEZ deployment of proximal LAD and also GONZALEZ deployment of mid and distal RCA NSTEMI, concern for type I physiology Abnormal HS troponins (2542, 3321, 3461, 2568) Abnormal D-Dimer (3.21), rule out PE/DVT Hypertensive emergency, improved PAD, s/p previous revascularization History of AAA, s/p previous repair COPD (stable), on home oxygen Hyperlipidemia, LDL of 71 Frequent PVC Multivessel CAD s/p PCI CARDIAC SUGGESTIONS FOR MANAGEMENT: Manage in tele ASA: 81 mg daily and Plavix 75 mg daily for at least one year High potency statin (on 40 mg Atorvastatin for now) Beta-nazanin: on Carvedilol for now On Valsartan (ARB) On Aldactone Guideline directed medical therapy for systolic heart failure On Amiodarone: 200 mg PO BID Cardiac fraser, is stable and can be followed as outpatient To proceed with optimized medical therapy and aggressive risk factor modification during the interim To proceed with close hemodynamic surveillance and optimized blood pressure control Proceed with Heparin infusion as for now Started on Carvedilol 6.25mg twice daily Started on Isosorbide ER 30mg daily Proceed with close rate and rhythm surveillance Proceed with close hemodynamic surveillance Proceed with optimized blood pressure control Transfuse to sustain HGB level above 7.0 Sustain Magnesium level greater than 2.0 Sustain Potassium level greater than 4.0 Follow up renal function and electrolytes Management in tele Follow up quality assurance consultant recommendations Will proceed to follow from a cardiac perspective Further recommendations per clinical progression All available diagnostic labs, EKG's, and images were personally reviewed Plan of care discussed with and agreed upon by patient / primary RN Prognosis: Guarded Thank you for allowing me to participate in the care of this patient. Further recommendations based on patients clinical course and progression, primary attending, and other consultants. Will continue to follow with primary attending. If you have any questions or concerns, please do not hesitate to contact me. A total of 75 minutes was spent reviewing the patient record, examining the patient, making a diagnostic and therapeutic plan, discussing this plan with medical personnel, following up on diagnostic studies and following the patient for clinical stability excluding any and all procedures. At least 50% of this time was spent in direct, [id number] contact. Dietary Evaluation Review Comments: follow Cardiac diet to meet At least 75% of his needs monitor PO intakes, updated lab values and skin integumentary data Expected Outcomes/Goals: avoid wt loss Plan discussed with: Patient, Other (nurse) HARLEY MCKENZIE MD Feb 24, 2025 08:13
[2025-02-24 08:56] LABS: Hematocrit 44.0 % (41.0-53.0); Hemoglobin 14.2 g/dL (13.5-17.5); Mean Corpuscular Hemoglobin 27.7 pg (28.0-32.0); Mean Corpuscular Volume 85.5 fL (80.0-100.0); Nucleated Red Blood Cells % 0.1 %; Potassium 4.5 mmol/L (3.5-5.1); Sodium 140 mmol/L (136-145)
[2025-02-24 08:57] LABS: Anion Gap 7 (5-15); Calcium 9.1 mg/dL (8.7-10.4); Carbon Dioxide 25 mmol/L (20-31)
[2025-02-24 09:02] LABS: BUN/Creatinine Ratio 19.0 (10.0-20.0); Glucose 94 mg/dL (74-106)
[2025-02-24 09:03] LABS: Blood Urea Nitrogen 24 mg/dL (9-23); Chloride 108 mmol/L (98-107)
[2025-02-24] MEDS ORDERED: ISO60SRT PO (09:52)
[2025-02-24] MEDS ORDERED: VALS1TAB57 PO (09:52)
[2025-02-24] MEDS ORDERED: EMPA1TAB PO (09:52)
[2025-02-24] MEDS ORDERED: CEPH250C PO (09:52)
[2025-02-24] MEDS ORDERED: TAMS-35 PO (09:52)
[2025-02-24] MEDS ORDERED: AMIO200T13 PO (09:52)
[2025-02-24] MEDS ORDERED: CARV-214 PO (09:52)
[2025-02-24] MEDS ORDERED: ACET-1882 PO (09:52)
[2025-02-24] MEDS ORDERED: SPIR25TA PO (09:52)
--- NOTE | 2025-02-24 09:53 | DVHDSRES ---
Discharge Summary Date of Admission Resident Creating Document: FCO BURRELL RESIDENT Feb 18, 2025 at 10:17 Date of Discharge: Feb 24, 2025 Labs/Diagnostic Data: Laboratory Results Test 02/24/25 08:09 02/23/25 04:46 02/22/25 02:37 02/20/25 14:34 White Blood Count 7.0 10^3/uL (4.4-10.8) Red Blood Count 5.14 10^6/uL (4.5-5.90) Hemoglobin 14.2 g/dL (13.5-17.5) Hematocrit 44.0 % (41.0-53.0) Mean Corpuscular Volume 85.5 fL (80.0-100.0) Mean Corpuscular Hemoglobin 27.7 pg (28.0-32.0) Mean Corpuscular Hemoglobin Concent 32.3 g/dL (32.0-36.0) Red Cell Distribution Width 17.4 % (11.8-14.3) Platelet Count 172 10^3/uL (140-450) Mean Platelet Volume 9.1 fL (6.9-10.8) Neutrophils (%) (Auto) 65.4 % (37.0-80.0) Lymphocytes (%) (Auto) 18.6 % (10.0-50.0) Monocytes (%) (Auto) 14.5 % (0.0-12.0) Eosinophils (%) (Auto) 1.4 % (0.0-7.0) Basophils (%) (Auto) 0.1 % (0.0-2.0) Neutrophils # (Auto) 4.6 10 ^3/uL (1.6-8.6) Lymphocytes # (Auto) 1.3 10 ^3/uL (0.4-5.4) Monocytes # (Auto) 1.0 10 ^3/uL (0-1.3) Eosinophils # (Auto) 0.1 10 ^3/uL (0-0.8) Basophils # (Auto) 0 10 ^3/uL (0-0.2) Nucleated Red Blood Cells 0.1 % Sodium Level 140 mmol/L (136-145) Potassium Level 4.5 mmol/L (3.5-5.1) Chloride Level 108 mmol/L (98-107) Carbon Dioxide Level 25 mmol/L (20-31) Anion Gap 7 (5-15) Blood Urea Nitrogen 24 mg/dL (9-23) Creatinine 1.26 mg/dL (0.700-1.30) Glomerular Filtration Rate Calc 56 mL/min (>90) BUN/Creatinine Ratio 19.0 (10.0-20.0) Serum Glucose 94 mg/dL (74-106) Calcium Level 9.1 mg/dL (8.7-10.4) Phosphorus Level 3.5 mg/dL (2.4-5.1) Magnesium Level 2.3 mg/dL (1.6-2.6) Total Bilirubin 0.8 mg/dL (0.2-1.0) Aspartate Amino Transferase (AST) 18 U/L (13-40) Alanine Aminotransferase (ALT) 21 U/L (7-40) Alkaline Phosphatase 107 U/L (46-116) Total Protein 5.9 g/dL (5.7-8.2) Albumin 3.4 g/dL (3.2-4.8) Prothrombin Time 11.4 sec (9.3-11.8) Prothrombin Time INR 1.08 (0.9-1.15) Activated Partial Thromboplast Time 27.4 SEC (24.5-34.5) Urine Opiates Screen Neg (NEGATIVE) Urine Fentanyl Screen Neg (NEGATIVE) Urine Barbiturates Screen Neg (NEGATIVE) Urine Phencyclidine Screen Neg (NEGATIVE) Urine Amphetamines Screen Neg (NEGATIVE) Urine Benzodiazepines Screen Pos (NEGATIVE) Urine Cocaine Screen Neg (NEGATIVE) Urine Cannabinoids Screen Neg (NEGATIVE) Test 02/20/25 14:01 02/19/25 14:35 02/19/25 05:10 02/19/25 01:40 Blood Gas Specimen Type Arterial Blood Gas Sample Site Left radial Blood Gas Patient Temperature 37.0 Arterial Blood Date Drawn [id number] Arterial Blood pH 7.528 (7.350-7.450) Arterial Blood Partial Pressure CO2 25.6 mmHg (35.0-48.0) Arterial Blood Partial Pressure O2 148.6 mmHg (83.0-108.0) Arterial Blood HCO3 20.8 mmol/L (21.0-28.0) Arterial Blood Oxygen Saturation 99.2 % (94.0-98.0) Arterial Blood Base Excess -0.1 mmol/L (-2.0-3.0) Arterial Blood Oxyhemoglobin 98.1 % (94.0-98.0) Arterial Blood Carboxyhemoglobin 0.8 % (0.5-1.5) Arterial Blood Methemoglobin 0.3 % (0.0-1.5) Arterial Blood Deoxyhemoglobin 0.8 % (0.0-5.0) Pal Test Modified Blood Gas Total Hemoglobin 15.80 g/dL (13.5-17.5) Blood Gas Modality Mask - bipap FiO2 % 50.0 Blood Gas EPAP 5 Blood Gas IPAP 12 Lactic Acid Level 2.0 mmol/L (0.4-2.0) Hemoglobin A1c 5.6 % A1C (<5.7) B-Type Natriuretic Peptide 269.87 pg/mL (0-100) Vitamin B12 Level 422 pg/mL (211-911) Vitamin D 25-Hydroxy 48.6 ng/mL (30.0-100) Influenza Type A Antigen Negative (Negative) Influenza Type B Antigen Negative (Negative) SARS-CoV-2 Antigen (Rapid) Negative (NEGATIVE) Test 02/18/25 17:42 02/18/25 14:30 02/18/25 10:53 02/18/25 09:42 Troponin I High Sensitivity 2568 ng/L (</=54) D-Dimer, Quantitative 3.21 mg/L FEU (0.0-0.49) Triglycerides Level 78 mg/dL (< 150) Cholesterol Level 161 mg/dL (< 200) LDL Cholesterol 71 mg/dL (< 100) HDL Cholesterol 73 mg/dL (40-59) Urine Color Yellow (Yellow) Urine Clarity Clear (Clear) Urine pH 7.0 (5.0-9.0) Urine Specific Tr[place]ble 1.024 (1.001-1.035) Urine Protein 1+ (Negative) Urine Ketones Negative (Negative) Urine Blood Negative /uL (Negative) Urine Nitrite Negative (Negative) Urine Bilirubin Negative (Negative) Urine Urobilinogen 3 mg/dL (Negative) Urine Leukocyte Esterase Negative /uL (Negative) Urine RBC 2 /hpf (0 - 3) Urine Microscopic WBC 1 /HPF (0-3) Urine Squamous Epithelial Cells None seen /hpf (<5) Urine Bacteria None seen /hpf (None Seen) Urine Glucose Normal mg/dL (Normal) Direct Bilirubin 0.3 mg/dL (<0.3) Thyroid Stimulating Hormone (TSH) 1.09 uIU/mL (0.55-4.78) Other Laboratory Tests 02/24/25 08:09 Brief Hx & Hospital Course: Kannan Mccray is a 84-year-old male patient who presents to the ED transferred from other centre via [facility] with chief complaint of intermittent, unprovoked, oppressive retrosternal chest pain in Functional Class IV with intensity 10/10 which started on 02/17/2025 at 11:30 p.m, associated with hypertension SBP above 200 mmHg) and dizziness, prompting patient to contact EMS who evaluated him on site and decided to transfer him to the [facility]. In [facility] he was diagnosed with NSTEMI, initiating medical therapy (enoxaparin, aspirin load, and atorvastatin) relieving his symptoms to 0/10, deciding to transfer him to a center capable of coronary angiography. Patient also reports noncompliance with antihypertensive medication. Denies any other associated symptoms including palpitation, syncope, dyspnea and lower limb swelling. Past medical history: hypertension, 2009 AAA status postop with endoprosthesis, 2009 right peripheral artery disease status post surgical bypass and recent bilateral lower limb peripheral revascularization on Plavix, 2018 CVA, COPD on intermittent home oxygen (3.5 L/min during nighttime), questionable obstructive sleep apnea, peptic ulcer disease, osteoarthritis, chronic back pain coronary artery disease and HFpEF (60%) with stress test on 12/2022 which ruled out ischemia (LVEF 60% and fixed defect in inferior/inferoseptal segment compatible with OR) Surgical history: 2010 bypass surgery, 1999 and peripheral artery disease surgery, recent percutaneous treatment, left 3rd digit repair, left knee repair, right ankle repair Family history: Sister had bone cancer. Father had COPD. Sister has heart disease status post ICD placement Social history: Lives in [place] with (next of kin. Ex tobacco abuse (40 pack-year history of smoking) quit 15 years ago. Denies current tobacco, alcohol and other drug abuse. Allergies: Denies Home medication: Methocarbamol 500 mg tablet, Anoro Ellipta 62.5-25 mcg inhaler, Hydrocodone-Acetaminophen 5-325 mg tablet . Albuterol Sulfate HFA 108 mcg/act inhale, Ezetimibe 10 mg tablet, Pamelor (Nortriptyline) 25 mg capsule. Clopidogrel 75 mg tablet. Pantoprazole Sodium 40 mg tablet Take 1 tablet daily. Furosemide 20 mg p.o. daily, Losartan Potassium 50 mg p.o. daily (per patient he was not taking aspirin due to peptic ulcer disease) Brief hospital course: NSTEMI type 1 with EKG shows sinus rhythm with LVH, elevated troponin ([id number]), requiring on admission heparin drip, loading dose of aspirin, p.o. antihypertensive medication and nitroglycerin, arriving with no angina from [place]. Evaluated by internal controls specialist recommending Angio CT of chest which ruled out pulmonary embolism and acute intrathoracic aortic disease completed echocardiogram which showed dilated LV, concentric LVH and LVEF 15% with diffuse hypokinesis insulin normalization of left ventricle, currently patient is on GDM T (empagliflozin, spironolactone, valsartan and carvedilol). Completed coronary angiography on 02/20/2025 which showed proximal RCA 80%, mid RCA 90% and distal RCA 95%, proximal LAD 80%, status post PCI to proximal RCA/mid RCA and proximal LAD (total of three stents placed) (rest of anatomy shows 1st diagonal 50% and 2nd diagonal 70%, LVEF 30%), currently on DAPT (aspirin and clopidogrel) and statins, discontinue heparin drip after revascularization. Immediate postop patient presented flash pulmonary edema associated with severe hypertension responding to BiPAP, antihypertensive medication and IV furosemide. In context of flash pulmonary edema, patient presented traumatic Gallego placement with hematuria and mild NOLAN, evaluated by Urology responding to medical therapy (tamsulosin and IV fluids), ordered kidney ultrasound which showed mild left pelviectasis without hydronephrosis, moderately distended urinary bladder with bilateral renal cysts. During monitoring cessation and D OU, evidence ventricular bigeminy, responding to amiodarone. Patient hemodynamically stable, asymptomatic, mobilizes by his own means, urinating with no hematuria, in condition to be discharged home. Was granted under optimal medical therapy (GDM T, DAPT, statins, amiodarone, tamsulosin on rest of home medication), gave advice on healthy lifestyle habits, and follow up with PCP, cardiology and urology specialist. DIAGNOSIS NSTEMI type 1 - s/p PCI with 3 GONZALEZ placed Flash pulmonary edema Acute on chronic systolic congestive heart failure (HFrEF, LVEF 15%) Hypertensive crisis Ventricular Bigeminy Ruled out acute intrathoracic aortic disease Ruled out PE History of AAA status post surgery History of PAD status post surgery and stent placement Acute on chronic respiratory failure on intermittent home oxygen (3.5 L/min) COPD, not exacerbated Questionable obstructive sleep apnea NOLAN hemodynamically mediated (VMN) Traumatic hematuria Renal cysts Chronic back pain Osteoarthritis Peptic ulcer History of tobacco dependence Goals of care discussed with patient for over 18 minutes: Full code status Discussed plan with Dr. Bentley, patient, family and nurses Physical Examination Patient lying in bed, in no acute distress General: Lucid, afebrile, mucosae are moist Cardiovascular: Normal S1 and S2. No murmurs, gallops or rubs Respiratory: Normal ventilation mechanics. Clear lung sounds on auscultation. Breathing room air Abdomen: Soft, nontender, no organomegaly, normal bowel sounds. Surgical wound of laparotomy completely healed MSK/skin: Mobilizes 4 limbs. Skin is dry and warm. Surgical wound of peripheral right thigh bypass completely healed. : No hematuria, weak urine stream, no suprapubic pain nor costovertebral tenderness. Neurological: Oriented in 3 spheres. No motor no sensitive deficits. Pupils are isocoric and reactive Operations or Procedures Carotid Duplex Date: 02/18/2025 01:53 PM Clinical History: R/o critical stenonsis, dizziness. Comparison: None Technique: Duplex Doppler evaluation of the extracranial carotid and vertebral arteries including color Doppler and spectral/pulsed waveform analysis was performed. Findings: RIGHT SIDE: There is atherosclerotic calcification of the common carotid, the carotid bifurcation and internal carotid artery. The peak systolic velocities are 91 cm/s in the distal CCA and 82 cm/s in the proximal ICA.The ICA/CCA ratio is 1.1. The external carotid artery is patent with peak systolic velocity of 108 cm/s proximally. There is appropriate antegrade flow in the right vertebral artery. LEFT SIDE: There is atherosclerotic calcification in the common carotid, the carotid bifurcation and internal carotid artery. The peak systolic velocities are 89 cm/s in the distal CCA and 84 cm/s in the proximal ICA. The ICA/CCA ratio is 1.1. The external carotid artery is patent with peak systolic velocity of 111 cm/s proximally. There is appropriate antegrade flow in the left vertebral artery. IMPRESSION: 1. No hemodynamically significant stenosis noted in the right carotid system. 2. No hemodynamically significant stenosis noted in the left carotid system. 3. Reference: Radiology 2003; [id number] ATED BY: HALLIE DUNN MD DICTATED DATE/TIME: 02/18/25 1416 CLINICAL HISTORY: chest pain TECHNIQUE: Single view of the chest was obtained. COMPARISON: XR CHEST 1 VIEW on DOS: 02/18/25, XR CHEST 1 VIEW on DOS: 06/13/24, XR CHEST 2 VIEWS on DOS: 04/03/23 FINDINGS: The heart size and pulmonary vasculature are normal. The lungs are clear. IMPRESSION: NO ACUTE CARDIOPULMONARY PROCESS. ATED BY: LISA MCLEOD MD DICTATED DATE/TIME: 02/18/25 1058 CLINICAL HISTORY: Chest pain. Elevated D-dimer. COMPARISON: LE-ANKLE 2V on DOS: 10/13/19, LE-FOOT 2V on DOS: 10/13/19, LE-ANKLE 2V on DOS: 10/13/19 TECHNIQUE: Bilateral lower extremity venous duplex exam was performed. Grayscale, color flow, and spectral waveform analysis was performed. The deep veins of the lower extremity were evaluated for compression, phasic flow, and augmentation. Color flow and spectral waveform analysis were performed. FINDINGS: This examination demonstrates normal compression, augmentation, and phasic flow of both lower extremities. No evidence for thrombus within the common femoral, femoral, and popliteal veins. The calf veins were not evaluated. IMPRESSION: There is no evidence for DVT in either lower extremity from the common femoral veins through the popliteal veins. ATED BY: TERENCE GRADY DO DICTATED DATE/TIME: 02/18/25 1706 EXAM: CT CT ANGIO CHEST CONTRAST HISTORY: rule out PE / aortic dissection/aneurysm TECHNIQUE: CT angiogram was performed. CT scans at this facility use dose modulation, iterative reconstruction, and/or weight based dosing when appropriate to reduce radiation dose to as low as reasonably achievable. Coronal and sagittal reformations and maximum intensity projection images were created from the transaxial source data by the medical technologist and workstation, as well as 3-D volume rendered images with MIPs. COMPARISON: XY CHEST PORTABLE on DOS: 02/18/25 FINDINGS: [LOWER NECK]: Unremarkable [LYMPH NODES/MEDIASTINUM]: No abnormal lymph nodes by CT size criteria [CARDIOVASCULAR]: Normal cardiac size. No pericardial effusion. No aneurysmal dilatation of the great vessels. Coronary artery calcifications. Vascular calcifications. Endovascular stent graft in the partially visualized abdominal aorta. [PULMONARY ARTERIES]: No pulmonary arterial filling defect. Normal caliber of the main pulmonary artery. No evidence of elevated right heart pressures. [UPPER ABDOMEN]: Benign-appearing cysts of the left hepatic lobe. [MUSCULOSKELETAL]: No acute fracture or aggressive focal osseous lesion. Multilevel degenerative change of the visualized spine. Severe degenerative change of bilateral glenohumeral joints, [id number]. [CHEST WALL]: Unremarkable. [LUNG PARENCHYMA/PLEURAL SPACE]: Inconspicuous areas of possible lobular air trapping particularly in the right middle lobe. Minimal diffuse peribronchial thickening. No endobronchial impaction or bronchiectasis. Imaging findings may reflect infectious versus inflammatory bronchitis however may be exaggerated secondary to expiratory phase of imaging. No pleural effusion or pneumothorax. IMPRESSION: 1. No CTA evidence of an acute pulmonary embolism. 2. Inconspicuous areas of possible lobular air trapping particularly in the right middle lobe. 3. Minimal diffuse peribronchial thickening. 4. Imaging findings may reflect infectious versus inflammatory bronchitis however may be exaggerated secondary to expiratory phase of imaging. ATED BY: WILLIAM MUNGUIA MD DICTATED DATE/TIME: 02/19/25 1419 ULTRASOUND OF SCROTUM AND CONTENTS. INDICATION: TESTICULAR PAIN POST TRAUMATIC [place] INSERTION COMPARISON: None TECHNIQUE: Multiple real-time grayscale sonographic and color and duplex Doppler images of the scrotum and its contents were obtained. FINDINGS: The right testicle measures 2.9 x 1.9 x 2.2 cm. The left testicle measures 2.7 x 1.8 x 1.7 cm. Both testicles demonstrate homogeneous echotexture without evidence of focal lesions. The right epididymal head measures 1.2 cm. The left epididymal head measures 4.3 cm. Left epididymal head cyst measures 0.9 cm. Echogenic areas are present within the left epididymis possibly representing gas. Subsequent color and duplex Doppler interrogation of the testes demonstrated symmetric normal vascular flow to both testicles. No focal areas of hyperemia were seen. Bilateral scrotal edema. Small left hydrocele containing debris. Small right hydrocele. IMPRESSION: Asymmetric enlargement of the left epididymis. This is a nonspecific findings. Echogenic foci are present within the epididymis possibly representing small volume gas. Small left hydrocele with debris. ATED BY: MARIO ALBERTO FERRELL MD DICTATED DATE/TIME: 02/21/25 0900 EXAM DESCRIPTION: RENAL ULTRASOUND CLINICAL HISTORY: Evaluate Post obtructive NOLAN, recent traumatic hematuria COMPARISON: None TECHNIQUE: Multiplanar ultrasound examination of the kidneys and urinary bladder was performed. FINDINGS: The right kidney measures 11.4 cm. No renal calculus. No hydronephrosis.. No solid renal masses. Multiple right renal cysts measuring up to 2.6 cm. The left kidney measures 11.8 cm. No renal calculus. Mild left pelviectasis without significant hydronephrosis.. No solid renal masses. Multiple left renal cyst measuring up to 3 cm. The echogenicity of the kidneys is within normal limits. Moderately distended urinary bladder, volume 734 mL. IMPRESSION: 1. Mild left pelviectasis without significant hydronephrosis. 2. Moderately distended urinary bladder. 3. Bilateral renal cysts. ATED BY: DARBY VIDALES MD DICTATED DATE/TIME: 02/22/25 1113 CHEST RADIOGRAPH INDICATION: CHF TECHNIQUE: Single frontal view of the chest was obtained COMPARISON: XY CHEST PORTABLE on DOS: 02/20/25, XY CHEST PORTABLE on DOS: 02/18/25, XR CHEST 1 VIEW on DOS: 02/18/25, XR CHEST 1 VIEW on DOS: 06/13/24, XR CHEST 2 VIEWS on DOS: 04/03/23 FINDINGS: Lines and Tubes: None Lungs: No focal consolidation. Pleura: No effusion. No pneumothorax. Cardiomediastinal contours: Unremarkable Bones: No acute osseous abnormality. IMPRESSION: No acute cardiopulmonary disease. ATED BY: CHARITY COY MD DICTATED DATE/TIME: 02/23/25 1255 EXAM: Two-dimensional and M-mode echocardiogram with Doppler and color Doppler. Blood Pressure: 158/92 mmHg INDICATION R/O structural heart disease LVEF RISK FACTORS Height: , Weight: DIMENSIONS LVDd 4.7 (3.8-5.7cm) LA (2D) 3.6 (1.9-4.0cm) Aortic Root 3.8 (2.0- 3.7cm) LVDs 4.6 (2.5-4.0cm) LA (MM) (1.9-4.0cm) Aortic Cusp Exc 1.4 (1.5- 2.0cm) EF (%) 15.0 (55-70%) Rt. Atrium 4.2 (1.9-4.0cm) Asc. Aorta cm IVSd 1.0 (0.7-1.1cm) RV (D) 3.3 (1.8-2.4cm) PWd 1.1 (0.7-1.1cm) Mitral Valve Mitral Mitral Stenosis E wave 0.97m/s MV Mean GR. mmHg A wave 0.89m/s MV Peak GR. mmHg E/A ratio 1.1 2D MVA cm2 DECEL Time 116ms PRESS 1/2 Time ms Aortic Valve Aortic Valve Aortic Stenosis V1 0.69m/s AO Mean GR. 4mmHg V2 1.32m/s AO Peak GR. 7mmHg LVOT Diameter 1.9 (1.8-2.4cm) Doppler SHINE 1.48cm2 Other Information Technically limited study due to body habitus. Conclusion Left ventricle: Dilated left ventricle. Borderline concentric left ventricular hypertrophy was seen. LVEF was around 15%. Diffuse hypokinesis of left ventricle with regional variation was seen. Pseudonormal left ventricular diastolic dysfunction was observed. Right ventricle was normal-sized with normal systolic function. Both atria were mildly dilated. Aortic valve was not well visualized. There was no aortic insufficiency/stenosis. There was mild mitral regurgitation. There was no tricuspid regurgitation. Pulmonary valve was not well visualized. As there was no good tricuspid regurgitation jet, right ventricular systolic pressure could not be estimated. SIGNED BY: HARLEY MCKENZIE MD SIGNED DATE/TIME: 02/19/25 4490 Operative Report Procedures performed: Left heart catheterization and bilateral coronary angiogram PCI (drug-eluting stent deployment) of proximal LAD/mid RCA/distal RCA Shockwave of proximal LAD IVUS of proximal LAD Moderate sedation lasting at least 45 minutes Diagnosis: Multivessel coronary artery disease Proximal RCA with 80% lesion (hazy and culprit), status post IVUS/shock wave/PCI (drug-eluting stent deployment) Mid RCA with 95% lesion (status post PCI/drug-eluting stent deployment) and distal RCA with 90% lesion (status post PCI/drug-eluting stent deployment) LVEF of 30% Cardiac suggestion for management: Dual antiplatelet therapy (loaded with aspirin/Plavix) for at least 1 year next High potency statin Beta blockers YIMI Inhibitor versus ARB Guideline directed medical therapy for systolic heart failure Optimized medical therapy Lifestyle and risk factor modifications Findings: LVEF: 30% LVEDP: 31 mm Hg There was no transaortic valve pressure gradient Left main: Left main was coming off the left sinus of Valsalva. It was free of disease. LAD: LAD was coming off the left main. Proximal LAD had 80% focal lesion which was hazy and was considered the culprit. Mid to distal LAD had mild diffuse disease. LAD looked calcified. First diagonal was a medium-sized vessel with 50% ostial disease. Second diagonal was large vessel with 70% ostial disease. Third diagonal small vessel with minor diffuse disease. Ramus intermedius: Ramus intermedius was a small-caliber vessel which was free of disease and came off the left main. LCX: LCX was a medium-sized vessel which came off the left main. It provided a large bifurcating obtuse marginal which revealed minor luminal irregularities. RCA: RCA was coming off the right sinus of Valsalva. It was a dominant vessel and provided RPDA/RPLS. Proximal RCA had a focal 50% lesion. Mid RCA had focal 95% lesion. Distal RCA had 90% focal disease. RPDA/RPLS had minor diffuse disease Presentation: Patient is a 84-year-old gentleman who presented to another facility ([facility]) with chest pain. Was found to have increased troponin and was transferred to our facility with diagnosis of non-STEMI. In our facility ([facility]), troponin (high sensitive) peaked at 3461. Echocardiogram revealed reduced systolic function (EF of 15%). As outpatient, the patient has had a stress test in 2022 which revealed preserved left ventricular systolic function and inferior wall scar. In [facility], CT angiography of the lungs ruled out acute pulmonary embolism. It also reported no aneurysmal dilatation of great vessels. It also partially revealed endovascular stent in the abdominal aorta (no problem reported). It is of note that the patient has previous diagnosis of AAA for which has had abdominal stenting (many years ago). Other past medical history includes hypertension, hyperlipidemia, COPD (on home oxygen for chronic respiratory failure) obstructive sleep apnea and osteoarthritis. With diagnosis of non-STEMI and newly diagnosed heart failure, the patient was sent for cardiac catheterization. Procedure: After obtaining informed consent, the patient was brought to the pharmacy laboratory technician. He was prepped and draped in sterile fashion. Right radial artery was used for access site. Using Seldinger technique, the right radial artery was accessed and a 6 Liberian slender sheath was inserted into it. As he was allergic to contrast dye, he was given the cocktail for contrast allergy (famotidine/Benadryl/methylprednisolone). 1.5 mg of Versed and 75 mcg of fentanyl were given for moderate sedation (lasting more than 45 minutes). Five Liberian tiger 4 diagnostic catheter was used to perform bilateral coronary angiogram and left heart catheterization (obtaining pressures and performing left ventriculography). We did recognize the disease in proximal LAD which was hazy and was considered the culprit for the presentation. We also recognized the disease is in mid and distal RCA. Decision was made to proceed with intervention and to start the intervention for LAD disease. Patient was started on Angiomax. A 6 Liberian EBU guiding catheter was used to access the left coronary system. A run-through wire was used to cross the lesion in proximal LAD. We used a 3.0 x 12 compliant balloon for predilatation. At this point, we decided to use IVUS for further lesion catheterization and sizing. We did recognize calcified lesion in proximal LAD and decision was made to proceed with shockwave. A 3.5 shockwave system was used (we did go up to 6 atmospheres). We proceeded to deploy a stent. A 3.5 x 15 drug-eluting stent was deployed across the lesion in proximal LAD. We did use the IVUS to further evaluate the stent position. We proceeded with postdilatation with a 4.0 x 8 noncompliant balloon and inflated it even up to 25 atmospheres. Repeat imaging by IVUS revealed good deployed stent. At this point we put our attention to RCA lesions. Decision was made to proceed with intervening on them. A 6 [place] JR4 guiding catheter was used to access the right coronary system. The same run-through wire was used to cross the lesions (mid RCA and distal RCA). We proceeded with predilatation. We did use a 2.5 x 12 compliant balloon for predilatation of both lesions. We decided to proceed with deploying stents. A 2.5 x 15 drug- eluting stent was deployed across the distal RCA lesion (inflated to 16 atmospheres making it 2.75 in size). A 3.0 x 15 drug-eluting stent was deployed across the mid RCA lesion (inflated to 16 atmospheres and making a 3.25 in size). A 3.0 x 12 noncompliant balloon was used for postdilatation of the mid RCA stent (inflated to 25 atmospheres/3.25 in size). Repeat angiography revealed well deployed stents in mid and distal RCA. It is of note that BARRY flow in LAD prior to intervention was BARRY 3 flow. Post intubation in LAD, remaining disease in LAD was only 5%. Post intervention in LAD, BARRY flow remained BARRY 3 flow. Repeat imaging in the left coronary system revealed well deployed stents. It is also of note that BARRY flow in RCA prior to intervention was BARRY 3 flow. Post intervention in RCA, remaining disease in mid RCA was 5% and remaining disease in distal RCA was 5%. Post intervention in RCA, BARRY flow in RCA remained BARRY 3 flow. There was no dissection/hematoma/perforation throughout the procedure. Patient tolerated the procedure with no complication. Total bleeding was less than 15 mL. Right radial artery access site was managed by deploying a TR band. It is of note that after the procedure (after he came down the table and in recovery room) patient complained of shortness of breath and chest tightness. Repeat EKG was nonrevealing. Patient responded to sublingual nitro and IV Lasix. It was assessed to represent/reflect acute heart failure. Fluoroscopy time: 27.2 minutes contrast: 290 mL HARLEY MCKENZIE MD Feb 20, 2025 10:33 DICTATED BY:HARLEY MCKENZIE MD DICTATED DATE/TIME:02/20/25 1033 Condition at Discharge: Stable Final Diagnosis/Problems List NSTEMI type 1 - s/p PCI with 3 GONZALEZ placed Flash pulmonary edema Acute on chronic systolic congestive heart failure (HFrEF, LVEF 15%) Hypertensive crisis Ventricular Bigeminy Ruled out acute intrathoracic aortic disease Ruled out PE History of AAA status post surgery History of PAD status post surgery and stent placement Acute on chronic respiratory failure on intermittent home oxygen (3.5 L/min) COPD, not exacerbated Questionable obstructive sleep apnea NOLAN hemodynamically mediated (VMN) Traumatic hematuria Renal cysts Chronic back pain Osteoarthritis Peptic ulcer History of tobacco dependence Discharge Disposition: Home Discharge Instruct/Medications Diet: Cardiac 2g Na,low cholest, Renal Activity: No Restrictions, As Tolerated Follow Up/Referral: PCP Cardiology (Dr Vega) Urology Medications: Per EMR Scheduled Amiodarone HCl (Amiodarone HCl), 200 MG PO Q12HR Aspirin (Aspir-81), 81 MG OR DAILY, (Reported) Carvedilol (Coreg), 6.25 MG PO Q12HR Cephalexin (Keflex Capsule), 1 CAP PO QID Clopidogrel Bisulfate (Plavix), 75 MG OR DAILY, (Reported) Empagliflozin (Jardiance), 10 MG PO DAILY Ezetimibe (Ezetimibe), 1 TAB PO DAILY, (Reported) Isosorbide Mononitrate (Isosorbide Mononitrate ER), 30 MG PO DAILY Pantoprazole Sodium Sesquihydr (Pantoprazole Sodium), 1 TAB PO DAILY, (Reported) Spironolactone (Aldactone), 25 MG PO DAILY Tamsulosin Hcl (Flomax), 0.4 MG PO HS Valsartan (Valsartan), 80 MG PO DAILY Scheduled PRN Acetaminophen (Acetaminophen), 650 MG PO Q6HP PRN Hydrocodone-Acetaminophen (Hydrocodone/Acetaminophen 5-325 mg), 1 TAB PO Q6HP PRN for PAIN SCALE 7 THRU 10, (Reported) Miscellaneous Medications Albuterol Sulfate (Albuterol Sulfate Hfa), INH, (Reported) Nortriptyline Hcl (Pamelor Capsule), CAP PO, (Reported) Umeclidinium-Vilanterol (Anoro Ellipta 62.5-25 Mcg/INH), 1 AER IN, (Reported) Discontinued Medications Atenolol (Atenolol), 50 MG OR DAILY, (Reported) Clopidogrel Bisulfate (Clopidogrel), 1 TAB PO DAILY, (Reported) Losartan Potassium (Losartan Potassium), 1 TAB PO BID, (Reported) Methocarbamol (Methocarbamol), 1 TAB PO BID, (Reported) Simvastatin (Simvastatin), 20 MG OR DAILY, (Reported) [Nortriptoline], 25 MG PO BID, (Reported) Discharge Statement: "Patient was advised to return to the ER or call 911 if any headaches, dizziness, shortness of breath, chest pain, abdominal pain, bleeding, fevers, or worsening of medical condition. Patient was counseled about treatment plan, medications, possible side effects, patientverbalized understanding. All questions were answered to the best of my ability. This discharge took greater then 30 minutes in planning, reviewing documentation, counseling the patient, and discussing with other team members." ASSESSMENT ASSESSMENT Assessment NSTEMI type I s/p PCI with 3 GONZALEZ Visit Coding STANDARD RES Billing Provider: KORI BENTLEY MD Date of Service if different f: Feb 24, 2025 Common Visit Codes: 36323-KRV/OBS DISCH DAY >30min [facility]CO BURRELL RESIDENT Feb 24, 2025 09:53
== END 2025-02-24 12:28 | disposition home or self-care (01) | DRG 323 ==
LOC: EDBD 09:23 → ER 09:23 → OVERFLOW 10:17 → TELE-EAST 12:51 → TELE-WESTW 16:30 → ICU CENTRL 02-20 15:20 → DOU 02-22 04:51 → TELE-WESTW 02-23 23:05
PROVIDERS: ADMIT Internal Medicine Geriatric Medicine; ATTEND Internal Medicine Geriatric Medicine
PROC: 027136Z Dilation of Coronary Artery, Two Arteries with Three Drug-eluting Intraluminal Devices, Percutaneous Approach (ICD-10-PCS; principal; 2025-02-20)
PROC: 02F03ZZ Fragmentation in Coronary Artery, One Artery, Percutaneous Approach (ICD-10-PCS; 2025-02-20)
PROC: 4A023N7 Measurement of Cardiac Sampling and Pressure, Left Heart, Percutaneous Approach (ICD-10-PCS; 2025-02-20)
PROC: B211YZZ Fluoroscopy of Multiple Coronary Arteries using Other Contrast (ICD-10-PCS; 2025-02-20)
PROC: B215YZZ Fluoroscopy of Left Heart using Other Contrast (ICD-10-PCS; 2025-02-20)
PROC: B240ZZ3 Ultrasonography of Single Coronary Artery, Intravascular (ICD-10-PCS; 2025-02-20)
PROC: 5A09357 Assistance with Respiratory Ventilation, Less than 24 Consecutive Hours, Continuous Positive Airway Pressure (ICD-10-PCS; 2025-02-20)
DX: I21.4 Non-ST elevation (NSTEMI) myocardial infarction (principal); I50.23 Acute on chronic systolic (congestive) heart failure; N17.0 Acute kidney failure with tubular necrosis; J96.20 Acute and chronic respiratory failure, unspecified whether with hypoxia or hypercapnia; N45.1 Epididymitis; Z79.02 Long term (current) use of antithrombotics/antiplatelets; I11.0 Hypertensive heart disease with heart failure; J44.9 Chronic obstructive pulmonary disease, unspecified; I73.9 Peripheral vascular disease, unspecified; I16.9 Hypertensive crisis, unspecified; I25.10 Atherosclerotic heart disease of native coronary artery without angina pectoris; I49.3 Ventricular premature depolarization; E78.5 Hyperlipidemia, unspecified; N43.3 Hydrocele, unspecified; Z20.822 Contact with and (suspected) exposure to COVID-19; G47.33 Obstructive sleep apnea (adult) (pediatric); Z99.81 Dependence on supplemental oxygen; I25.2 Old myocardial infarction; Z79.82 Long term (current) use of aspirin; Z79.899 Other long term (current) drug therapy; Z86.79 Personal history of other diseases of the circulatory system; Z90.49 Acquired absence of other specified parts of digestive tract; Z91.041 Radiographic dye allergy status; Z83.6 Family history of other diseases of the respiratory system; Z87.11 Personal history of peptic ulcer disease
CPT/HCPCS: 36415; 36600; 71045; 71275; 76775; 76870; 80048; 80053; 80061; 80076; 80307; 81001; 82306; 82607; 82805; 83036; 83605; 83735; 83880; 84100; 84443; 84484; 85025; 85379; 85610; 85730; 86850; 86900; 86901; 87081; 87086; 87426; 87804; 93005; 93306; 93886; 93970; 94640; 94660; 97116; 97530; 99152; 99291; A4344; C1874; C1887; G0378; J2250; J2470; J2704; J3490; Q9967